=== PATIENT | male | born 1945 | race Caucasian/White ===

== ENCOUNTER 2018-05-26 16:48 | Emergency (ER) | payer OTHER ==
--- OUTSIDE RECORDS SUMMARY | 2018-05-26 16:50 | XMS REPORT ---
:1945 Author Organization eClinicalWorks Care Team Providers Name Role Phone Aragon, Alba Provider Role Unavailable Allergies, Adverse Reactions, Alerts Substance Reaction Event Type N.K.D.A. Info Not Available Non Drug Allergy Problems Problem Type Condition Code Onset Dates Condition Status Problem Sexual dysfunction R37 Active Problem Unspecified hearing loss H91.90 Active Problem Hypertension I10 Active Problem Benign hypertrophy of prostate N40.0 Active Assessment Allergic rhinitis, seasonal J30.2 Active Problem Allergic rhinitis, seasonal J30.2 Active Assessment Benign hypertrophy of prostate N40.0 Active Problem Chronic tension-type headache, not G44.229 Active intractable Problem BPH without urinary obstruction N40.0 Active Problem Degeneration of lumbosacral M51.37 Active intervertebral disc Problem Nicotine dependence F17.200 Active Problem Headache syndrome, complicated G44.59 Active Assessment Degeneration of lumbosacral M51.37 Active intervertebral disc Assessment Chronic tension-type headache, not G44.229 Active intractable Assessment Hypertension I10 Active Assessment DJD (degenerative joint disease) M19.90 Active Problem Depression with anxiety F41.8 Active Problem DJD (degenerative joint disease) M19.90 Active Problem Chronic back pain M54.9 Active Problem Peripheral neuropathy G62.9 Active Problem Constipation, unspecified K59.00 Active Problem Insomnia G47.00 Active Medications Medication Code Code Instructions Start End Status Dosage System Date Date Flonase [facility] 41874621917 50 MCG/ACT Active 1 spray in Nasally Once a each day nostril Carbamazepine ND 18953640800 200 MG Orally Active 1 tablet Twice a day Imitrex ND 21162580809 25 MG Orally December Active 1 tablet once a day and 2017 as needed may repeat one dose if no improvement within 2 hours ( max of 2 doses in 24 hours) Flomax ND 27874858782 0.4 MG Orally Active 1 capsule Once a day Lyrica ND 96275154091 75 MG Orally Active 1 capsule Twice a day 1 to 3 hours before bedtime in the evening Trazodone HCl [facility] 46237367888 50 MG Orally Inactive 1 tablet Once a day at bedtime as needed Lisinopril [facility] 47385496609 40 MG Orally Active 1 tablet Once a day Tizanidine HCl [facility] 78716355465 2 MG Active 1 TAB EVERY 12 HOURS PRN PAIN MUSCLE SPASM Remeron [facility] 02059614748 45 MG Orally Active 1 tablet Once a day at bedtime Zanaflex [facility] 85225221034 2 MG Orally Apr 24, Active 1 capsule twice times a 2018 as needed day Results No Known Results Summary Purpose eClinicalWorks Submission
--- OUTSIDE RECORDS SUMMARY | 2018-05-26 16:51 | XMS REPORT ---
:1945 Author Organization eClinicalWorks Care Team Providers Name Role Phone Aragon, Na Provider Role Unavailable Allergies No Known Allergies Problems Problem Type Condition Code Onset Dates Condition Status Problem Sexual dysfunction R37 Active Problem Unspecified hearing loss H91.90 Active Problem Hypertension I10 Active Problem Benign hypertrophy of prostate N40.0 Active Problem Allergic rhinitis, seasonal J30.2 Active Problem Chronic tension-type headache, not G44.229 Active intractable Problem BPH without urinary obstruction N40.0 Active Problem Degeneration of lumbosacral M51.37 Active intervertebral disc Problem Nicotine dependence F17.200 Active Problem Headache syndrome, complicated G44.59 Active Problem Depression with anxiety F41.8 Active Problem DJD (degenerative joint disease) M19.90 Active Problem Chronic back pain M54.9 Active Problem Peripheral neuropathy G62.9 Active Problem Constipation, unspecified K59.00 Active Problem Insomnia G47.00 Active Medications No Known Medications Results No Known Results Summary Purpose [employer] Submission
--- OUTSIDE RECORDS SUMMARY | 2018-05-26 16:51 | XMS REPORT ---
[...] Medications Results No Known Results Summary Purpose [employer] Submission
--- OUTSIDE RECORDS SUMMARY | 2018-05-26 16:51 | XMS REPORT ---
:1945 Author Organization eClinicalWorks Care Team Providers Name Role Phone Aragon, Na Provider Role Unavailable Allergies, Adverse Reactions, Alerts Substance Reaction Event Type N.K.D.A. Info Not Available Non Drug Allergy Problems Problem Type Condition Code Onset Dates Condition Status Problem DJD (degenerative joint disease) M19.90 Active Problem Degeneration of lumbosacral M51.37 Active intervertebral disc Problem Unspecified hearing loss H91.90 Active Problem Chronic tension-type headache, not G44.229 Active intractable Assessment Degeneration of lumbosacral M51.37 Active intervertebral disc Problem Benign hypertrophy of prostate N40.0 Active Assessment DJD (degenerative joint disease) M19.90 Active Assessment Benign hypertrophy of prostate N40.0 Active Problem Renal insufficiency N28.9 Active Problem Headache syndrome, complicated G44.59 Active Problem BPH without urinary obstruction N40.0 Active Problem Allergic rhinitis, seasonal J30.2 Active Problem Nicotine dependence F17.200 Active Problem Peripheral neuropathy G62.9 Active Assessment Hypertension I10 Active Assessment Chronic tension-type headache, not G44.229 Active intractable Problem Hypertension I10 Active Problem Chronic back pain M54.9 Active Assessment Allergic rhinitis, seasonal J30.2 Active Problem Insomnia G47.00 Active Problem Constipation, unspecified K59.00 Active Assessment Renal insufficiency N28.9 Active Problem Sexual dysfunction R37 Active Problem Depression with anxiety F41.8 Active Medications Medication Code Code Instructions Start End Status Dosage System Date Date Lyrica [facility] 52710615670 75 MG Orally Active 1 capsule Twice a day Carbamazepine ND 65860844741 200 MG Orally Active 1 tablet Twice a day Imitrex ND 46680281343 50 MG Orally April 02, Active 1 tablet Twice a day 2017 as needed Topamax ND 68547503611 25 MG Orally April 02, Active 1 tablet Twice a day 2017 once a day x 1 week, then increase to twice a day after 1 week. Trazodone HCl [facility] 71099105205 50 MG Orally Inactive 1 tablet Once a day at bedtime as needed Remeron [facility] 71273241964 45 MG Orally Active 1 tablet Once a day at bedtime Flomax [facility] 21077049877 0.4 MG Orally Active 1 capsule Once a day Tizanidine HCl [facility] 36680518684 2 MG Active 1 TAB EVERY 12 HOURS PRN PAIN MUSCLE SPASM Flonase [facility] 09366050410 50 MCG/ACT Active 1 spray in Nasally Once a each day nostril Imitrex [facility] 83465466072 25 MG Orally Inactive 1 tablet once a day and as needed may repeat one dose if no improvement within 2 hours ( max of 2 doses in 24 hours) Zanaflex [facility] 78645395064 2 MG Orally Jul 01, Active 1 capsule twice times a 2018 as needed day Lisinopril [facility] 93550105157 40 MG Orally Active 1 tablet Once a day Results No Known Results Summary Purpose eClinicalWorks Submission
--- OUTSIDE RECORDS SUMMARY | 2018-05-26 16:51 | XMS REPORT ---
[...] Medications Results No Known Results Summary Purpose [employer] Submission
--- OUTSIDE RECORDS SUMMARY | 2018-05-26 16:51 | XMS REPORT ---
[...] tension-type headache, not G44.229 Active intractable Problem Benign hypertrophy of prostate N40.0 Active Problem Renal insufficiency N28.9 Active Problem Headache syndrome, complicated G44.59 Active Problem BPH without urinary obstruction N40.0 Active Problem Allergic rhinitis, seasonal J30.2 Active Problem Nicotine dependence F17.200 Active Problem Peripheral neuropathy G62.9 Active Problem Hypertension I10 Active Problem Chronic back pain M54.9 Active Problem Insomnia G47.00 Active Problem Constipation, unspecified K59.00 Active Problem Sexual dysfunction R37 Active Problem Depression with anxiety F41.8 Active Medications No Known Medications Results No Known Results Summary Purpose eClinicalWorks Submission
[2018-05-26] MEDS ORDERED: NA CHLORIDE 0.9% 500 ML ONE (17:47)
[2018-05-26] MEDS ORDERED: KETOROLAC 30 MG/ML INJ ONE (17:47)
[2018-05-26 18:24] LABS: Absolute Lymphocytes (CBC) 1.8 K/uL (0.7-4.9); Absolute Monocytes 0.4 K/uL (0.1-1.3); Absolute Neutrophil 6.1 K/uL (1.8-8.0); Basophils % 0.9 % (0-1.3); Eosinophils % 1.9 % (0-4.4); Lymphocytes % 20.7 % (15.3-44.8); MCH 31.4 pg (27.0-35.0); MCV 89.9 fL (80-100); MPV 7.6 fL (7.6-11.3); Monocytes % 5.1 % (3.3-12.3); Protime INR 0.96; RBC Red Blood Cell Count 4.67 M/uL (4.33-5.43)
[2018-05-26 18:38] LABS: ALT/SGPT 15 U/L (12-78); AST/SGOT 14 U/L (15-37); Alkaline Phosphatase 71 U/L (45-117); BUN Blood Urea Nitrogen 18 mg/dL (7-18); Bicarbonate 22 mmol/L (21-32); Bilirubin Direct < 0.1 mg/dL (0-0.2); Bilirubin Total 0.3 mg/dL (0.2-1.0); CKMB Creatine Kinase MB 1.1 ng/mL (0.3-3.6); Creatine Phosphokinase 48 U/L (39-308); Glucose Level 142 mg/dL (74-106); Magnesium 2.2 mg/dL (1.8-2.4); Potassium 3.6 mmol/L (3.5-5.1); Protein, Total 7.5 g/dL (6.4-8.2); Sodium Level 138 mmol/L (136-145); Troponin (Emerg Dept Use Only) 0.04 ng/mL (0.0-0.045)
--- NOTE | 2018-05-26 18:50 | RAD REPORT ---
EXAM DESCRIPTION: RAD - Chest Single View - 05/26/2018 6:37 pm CLINICAL HISTORY: hypotension Chest pain. COMPARISON: Chest Pa And Lat (2 Views) dated 06/14/2017 FINDINGS: Portable technique limits examination quality. The lungs are grossly clear. Mild chronic elevation left hemidiaphragm noted. The heart is normal in size. No displaced fractures. IMPRESSION: No acute intrathoracic process suspected.
[2018-05-26] MEDS ORDERED: DIAZEPAM 10 MG/2 ML INJ SYRINGE ONE (19:19)
--- NOTE | 2018-05-26 19:54 | RAD REPORT ---
EXAM DESCRIPTION: CT - Soft Tissue Neck W/Contr CLINICAL HISTORY: PAIN COMPARISON: No comparisons TECHNIQUE All CT scans are performed using dose optimization technique as appropriate and may includ e automated exposure control or mA/KV adjustment according to patient size. FINDINGS: Mild asymmetric soft tissue is seen in the region of the left tongue base/ palatine tonsil relative to the right. Elsewhere, pharyngeal or laryngeal abnormality of concern. Thyroid gland appe ars normal. Vocal cords are symmetric. Salivary glands appear symmetric. No significant jugular chain adenopathy seen. The upper lung tello are emphysematous. Prominent lower cervical degenerative changes are seen. 3 mm degenerative anterolisthesis of C4 on 5 is present. No significant prevertebral soft tissue thickening. IMPRESSION: Prominent lower cervical degenerative changes are present. Asymmetric soft tissue thickening involving the left tongue base/ palatine tonsil. Nonemergent direct visualization may be of value for further workup if clinically indicated.
--- NOTE | 2018-05-26 20:32 | ER ---
Nurse's Notes [facility] Name: Frank Chung Age: 72 yrs Sex: Male : 1945 Arrival Date: 05/26/2018 Time: 16:50 Bed 6 Private MD: Alba Aragon Diagnosis: Neck Pain Presentation: 05/26 16:58 Presenting complaint: Patient states: He has been having spasms in his neck for the aj1 past week, the pain is worse when he moves his right arm. The pain has made it difficult for him to sleep at night. Denies injury. Reports 4 years ago he started having intermittent spasms in his neck, which he has seen a neurologist for. He was told he had bone spurs on his neck and was recommended to have surgery, but he has been unable to schedule it due to finances. Transition of care: patient was not received from another setting of care. Onset of symptoms was May 19, 2018. Risk Assessment: Do you want to hurt yourself or someone else? Patient reports no desire to harm self or others. Initial Sepsis Screen:. 16:58 Method Of Arrival: Ambulatory [facility] 17:02 Care prior to arrival: None. aj1 17:08 Initial Sepsis Screen: Does the patient meet any 2 criteria? HR > 90 bpm. Does the aj1 patient have a suspected source of infection? No. Patient's initial sepsis screen is negative. 17:08 Acuity: KEVIN 2 aj1 Triage Assessment: 17:05 General: Appears in no apparent distress. comfortable, Behavior is calm, cooperative, aj1 appropriate for age. Pain: Complains of pain in neck Pain currently is 10 out of 10 on a pain scale. Neuro: Level of Consciousness is awake, alert, obeys commands. Cardiovascular: Patient's skin is warm and dry. Respiratory: Airway is patent Respiratory effort is even, unlabored, Respiratory pattern is regular, symmetrical. Historical: - Allergies: 17:05 NKA; aj1 - Home Meds: 17:05 lisinopril 40 mg Oral tab 1 tab once daily [Active]; Lyrica Oral 1 cap 2 times per day aj1 [Active]; Tegretol 250 mg Oral tab every 8 hours [Active]; Remeron 45 mg Oral tab 1 tab once daily [Active]; tamsulosin 0.4 mg Oral cp24 1 cap once daily [Active]; - PMHx: 17:05 Depression; Hypertension; aj1 - Immunization history:: Flu vaccine is up to date. - Social history:: Smoking status: Patient uses tobacco products, smokes one-half pack cigarettes per day. - Ebola Screening: : Patient denies travel to an Ebola-affected area in the 21 days before illness onset. Screenin:11 Abuse screen: Denies threats or abuse. Denies injuries from another. Nutritional ph screening: No deficits noted. Tuberculosis screening: No symptoms or risk factors identified. Fall Risk None identified. Assessment: 17:40 General: Appears in no apparent distress. uncomfortable, slender, well groomed, ph Behavior is cooperative, appropriate for age, anxious, Denies fever, feeling ill, fatigue. Pain: Complains of pain in right posterior aspect of neck Pain radiates to right trapezius Quality of pain is described as crampy, sharp, stabbing, Pain began 2-3 days ago. Neuro: Level of Consciousness is awake, alert, obeys commands, Oriented to person, place, time, situation, Moves all extremities. Speech is normal, Denies weakness dizziness, paresthesias numbness. Cardiovascular: Denies chest pain, lightheadedness, nausea, shortness of breath, vomiting, Capillary refill < 3 seconds in bilateral fingers Patient's skin is warm and dry. Respiratory: Airway is patent Respiratory effort is even, unlabored. GI: No signs and/or symptoms were reported involving the gastrointestinal system. Patient currently denies diarrhea, nausea, vomiting. : No signs and/or symptoms were reported regarding the genitourinary system. Derm: Skin is intact, is healthy with good turgor, Skin is pink, warm \T\ dry. Musculoskeletal: Circulation, motion, and sensation intact. 18:40 Reassessment: Patient appears in no apparent distress at this time. Patient and/or ph family updated on plan of care and expected duration. Pain level reassessed. Patient is alert, oriented x 3, equal unlabored respirations, skin warm/dry/pink. Pt reports that pain has decreased to 7/10, denies nausea, awaiting lab and radiology results, VSS. 19:52 Reassessment: Pt returned from CT. tl2 20:58 Reassessment: unable to discharge pt because he does not have a ride home. tl2 21:41 Reassessment: SAMMIE Shell stated to reevaluate patient after an hour and if he is tl2 awake and alert, he could be discharged home and to drive himself. 21:57 Reassessment: Pt ambulatory to restroom. Evaluated by PA and cleared to drive home. tl2 Vital Signs: 17:05 BP 85 / 62; Pulse 98; Resp 18; Temp 97.1; Pulse Ox 96% on R/A; Weight 79.38 kg (R); aj1 Height 5 ft. 10 in. (177.80 cm); Pain 10/10; 17:30 BP 83 / 72; Pulse 92; Resp 18; Pulse Ox 96% on R/A; ph 18:12 BP 109 / 78; Pulse 86; Resp 16; Pulse Ox 98% on R/A; ph 18:41 BP 102 / 80; Pulse 81; Resp 18; Pulse Ox 97% on R/A; Pain 7/10; ph 19:52 BP 140 / 94; Pulse 92; Resp 18; Pulse Ox 99% on R/A; tl2 21:56 BP 122 / 92; Pulse 88; Resp 18; Pulse Ox 95% on R/A; tl2 17:05 Body Mass Index 25.11 (79.38 kg, 177.80 cm) aj1 ED Course: 10:00 Initial lab(s) drawn, by me, sent to lab. Inserted saline lock: 22 gauge in right ph forearm, using aseptic technique. Blood collected. 16:50 Patient arrived in ED. sb2 16:50 Alba Aragon MD is Private Physician. sb2 17:08 Triage completed. aj1 17:24 Jaylen Braun PA is PHCP. cp 17:24 Luis Diaz MD is Attending Physician. cp 18:03 Sandra Munson, KENNETH is Primary Nurse. ph 18:06 Patient has correct armband on for positive identification. Bed in low position. Call ph light in reach. Side rails up X 1. supervisor sawmill on. Pulse ox on. NIBP on. Warm blanket given. 18:11 Arm band placed on. ph 18:34 X-ray completed. Portable x-ray completed in exam room. Patient tolerated procedure kp1 well. 18:35 XRAY Chest (1 view) In Process Unspecified. EDMS 19:[address] via stretcher. cw1 19:33 CT completed. Patient moved back from CT. cw1 19:36 CT Soft Tissue Neck W/contr In Process Unspecified. EDMS 20:31 Alba Aragon MD is Referral Physician. cp 21:57 No provider procedures requiring assistance completed. IV discontinued, intact, tl2 bleeding controlled, No redness/swelling at site. Pressure dressing applied. Administered Medications: 17:33 CANCELLED (Physician Discretion): fentaNYL (PF) 25 mcg IVP once cp 18:04 Drug: NS 0.9% 500 ml Route: IV; Rate: bolus; Site: right forearm; ph 18:39 Follow up: Response: No adverse reaction; IV Status: Completed infusion ph 18:04 Drug: TORadol 30 mg Route: IVP; Site: right forearm; ph 18:39 Follow up: Response: No adverse reaction; Pain is decreased ph 19:58 Drug: Diazepam 2 mg Route: IVP; Infused Over: 3 mins; Site: right forearm; tl1 21:59 Follow up: Response: No adverse reaction; Marked relief of symptoms tl2 Outcome: 20:31 Discharge ordered by MD. cp 21:57 Discharged to home ambulatory. tl2 21:57 Condition: stable 21:57 Discharge instructions given to patient, Instructed on discharge instructions, follow up and referral plans. medication usage, Demonstrated understanding of instructions, follow-up care, medications, Prescriptions given X 2. 22:03 Patient left the ED. tl1 Signatures: Dispatcher [employer] EDMS Audrey John RN RN aj1 Woodley, Crystal cw1 Lexy Truong RN RN tl1 Sandra Munson RN RN ph Jaylen Braun PA PA Shyla Aceves RN RN tl2 Katerina Houser kp1 Farideh Cline sb2 Corrections: (The following items were deleted from the chart) 18:41 18:40 Reassessment: Patient appears in no apparent distress at this time. Patient ph and/or family updated on plan of care and expected duration. Pain level reassessed. Patient is alert, oriented x 3, equal unlabored respirations, skin warm/dry/pink. ph 22:03 21:57 Discharge instructions given to patient, Instructed on discharge instructions, tl1 follow up and referral plans. medication usage, Demonstrated understanding of instructions, follow-up care, medications, Prescriptions given X 1, tl2
--- NOTE | 2018-05-26 20:32 | EDPHYS ---
Physician Documentation [facility] Name: Frank Chung Age: 72 yrs Sex: Male : 1945 Arrival Date: 05/26/2018 Time: 16:50 Bed 6 Private MD: Alba Aragon ED Physician Luis Diaz HPI: 05/26 17:35 This 72 yrs old Male presents to ER via Ambulatory with complaints of Neck cp Pain, >24Hrs Old. 17:35 The patient or guardian complains of decreased range of motion, pain, spasm, stiffness. cp The symptoms are located on the right posterior aspect of lower neck. 17:35 Onset: The symptoms/episode began/occurred 4 year(s) ago, and became worse 1 week(s) cp ago. Context: The neck injury/problem resulted from from unknown cause. 17:35 Associated signs and symptoms: Pertinent negatives: chills, fever, headache, numbness, cp weakness. The pain does not radiate. Severity of symptoms: in the emergency department the symptoms are unchanged, despite home interventions. Historical: - Allergies: 17:05 NKA; aj1 - Home Meds: 17:05 lisinopril 40 mg Oral tab 1 tab once daily [Active]; Lyrica Oral 1 cap 2 times per day aj1 [Active]; Tegretol 250 mg Oral tab every 8 hours [Active]; Remeron 45 mg Oral tab 1 tab once daily [Active]; tamsulosin 0.4 mg Oral cp24 1 cap once daily [Active]; - PMHx: 17:05 Depression; Hypertension; aj1 - Immunization history:: Flu vaccine is up to date. - Social history:: Smoking status: Patient uses tobacco products, smokes one-half pack cigarettes per day. - Ebola Screening: : Patient denies travel to an Ebola-affected area in the 21 days before illness onset. ROS: 17:40 Constitutional: Negative for body aches, chills, fever, poor PO intake. cp 17:40 Eyes: Negative for injury, pain, redness, and discharge. cp 17:40 ENT: Negative for drainage from ear(s), ear pain, sore throat, difficulty swallowing, difficulty handling secretions. 17:40 Neck: Positive for pain with movement, pain at rest, stiffness, tenderness. 17:40 Cardiovascular: Negative for chest pain, edema, palpitations. 17:40 Respiratory: Negative for cough, shortness of breath, wheezing. 17:40 Abdomen/GI: Negative for abdominal pain, diarrhea, constipation, black/tarry stool, rectal bleeding. 17:40 Back: Negative for radiated pain. 17:40 : Negative for urinary symptoms, flank pain. 17:40 MS/extremity: Negative for injury or acute deformity, decreased range of motion, paresthesias. 17:40 Skin: Negative for cellulitis, rash. 17:40 Neuro: Negative for altered mental status, dizziness, headache, speech changes, weakness. 17:40 All other systems are negative. Exam: 17:45 Constitutional: The patient appears in no acute distress, alert, awake, cp non-diaphoretic, non-toxic, well developed, well nourished, uncomfortable. 17:45 Head/Face: Normocephalic, atraumatic. cp 17:45 Eyes: Periorbital structures: appear normal, Pupils: equal, round, and reactive to light and accomodation, Extraocular movements: intact throughout, Conjunctiva: normal, no exudate, no injection, Sclera: no appreciated abnormality, Lids and lashes: appear normal, bilaterally. 17:45 ENT: External ear(s): are unremarkable, Ear canal(s): are normal, clear, TM's: dullness, bilaterally, Nose: is normal, Mouth: Lips: moist, Oral mucosa: moist, Posterior pharynx: is normal, airway is patent, no erythema, no exudate, Voice: is normal. 17:45 Neck: External neck: is normal, C-spine: vertebral tenderness, that is mild, crepitus, is not appreciated, Trachea: is midline with no obvious abnormalities, ROM/movement: pain, that is moderate, with rotation to the left, with rotation to the right, Meningeal signs: are not present. 17:45 Chest/axilla: Inspection: normal, Palpation: is normal, no crepitus, no tenderness. 17:45 Cardiovascular: Rate: normal, Rhythm: regular, Pulses: Pulses are 2+ in right radial artery and left radial artery. Edema: is not appreciated, JVD: is not appreciated. 17:45 Respiratory: the patient does not display signs of respiratory distress, Respirations: normal, no retractions, no splinting, no tachypnea, labored breathing, is not present, Breath sounds: are clear throughout, no decreased breath sounds, no stridor, no wheezing. 17:45 Abdomen/GI: Inspection: abdomen appears normal, Bowel sounds: active, all quadrants, Palpation: abdomen is soft and non-tender, in all quadrants, rebound tenderness, is not appreciated, voluntary guarding, is not appreciated, involuntary guarding, is not appreciated. 17:45 Back: pain, that is moderate, of the posterior cervical area, left trapezius and right trapezius, ROM is painful, with rotation to the right, with rotation to the left. 17:45 Skin: cellulitis, is not appreciated, no rash present. 17:45 Neuro: Orientation: to person, place \T\ time. Mentation: lucid, able to follow commands, Cerebellar function: is grossly normal, Motor: moves all fours, strength is normal, Sensation: no obvious gross deficits. 18:55 ECG was reviewed by the Attending Physician. cp Vital Signs: 17:05 BP 85 / 62; Pulse 98; Resp 18; Temp 97.1; Pulse Ox 96% on R/A; Weight 79.38 kg (R); aj1 Height 5 ft. 10 in. (177.80 cm); Pain 10/10; 17:30 BP 83 / 72; Pulse 92; Resp 18; Pulse Ox 96% on R/A; ph 18:12 BP 109 / 78; Pulse 86; Resp 16; Pulse Ox 98% on R/A; ph 18:41 BP 102 / 80; Pulse 81; Resp 18; Pulse Ox 97% on R/A; Pain 7/10; ph 19:52 BP 140 / 94; Pulse 92; Resp 18; Pulse Ox 99% on R/A; tl2 21:56 BP 122 / 92; Pulse 88; Resp 18; Pulse Ox 95% on R/A; tl2 17:05 Body Mass Index 25.11 (79.38 kg, 177.80 cm) aj1 MDM: 17:25 Patient medically screened. cp 18:00 Differential diagnosis: C-Spine Fracture Cervical Disc Herniation Cervical Discogenic cp Pain Cervical Raiculopathy Cervical Spondylosis fracture, Spinal Cord Compression Spondylosis subluxation, Thoracic Outlet Syndrome torticollis. 20:30 ED course: Patient denies difficulty swallowing foods or liquids. Pain and stiffness cp improved. 20:30 Data reviewed: vital signs, nurses notes, lab test result(s), EKG, radiologic studies, cp CT scan, plain films. 20:30 Test interpretation: by ED physician or midlevel provider: ECG, plain radiologic cp studies. Counseling: I had a detailed discussion with the patient and/or guardian regarding: the historical points, exam findings, and any diagnostic results supporting the discharge/admit diagnosis, lab results, radiology results, the need for outpatient follow up, a family practitioner, to return to the emergency department if symptoms worsen or persist or if there are any questions or concerns that arise at home. Response to treatment: the patient's symptoms have markedly improved after treatment, VSS. Pain improved, and as a result, I will discharge patient. 05/26 17:33 Order name: Basic Metabolic Panel; Complete Time: 18:52 cp 05/26 18:52 Interpretation: Normal except: GLUC 142; CRE 1.40; GFR 50. cp 05/26 17:33 Order name: CBC with Diff; Complete Time: 18:52 cp 05/26 17:33 Order name: Ckmb; Complete Time: 18:52 cp 05/26 17:33 Order name: CPK; Complete Time: 18:52 cp 05/26 17:33 Order name: LFT's; Complete Time: 18:52 cp 05/26 17:33 Order name: Magnesium; Complete Time: 18:52 cp 05/26 17:33 Order name: PT-INR; Complete Time: 18:52 cp 05/26 17:33 Order name: Ptt, Activated; Complete Time: 18:52 cp 05/26 17:33 Order name: Troponin (emerg Dept Use Only); Complete Time: 18:52 cp 05/26 18:22 Order name: CT Soft Tissue Neck W/contr; Complete Time: 20:19 cp 05/26 18:22 Order name: XRAY Chest (1 view); Complete Time: 18:52 cp 05/26 17:33 Order name: EKG; Complete Time: 17:34 cp 05/26 17:33 Order name: Cardiac monitoring; Complete Time: 18:05 cp 05/26 17:33 Order name: EKG - Nurse/Tech; Complete Time: 18:49 cp 05/26 17:33 Order name: IV Saline Lock; Complete Time: 18:05 cp 05/26 17:33 Order name: Labs collected and sent; Complete Time: 18:05 cp 0908 17:33 Order name: O2 Per Protocol; Complete Time: 18:05 cp 08 17:33 Order name: O2 Sat Monitoring; Complete Time: 18:05 cp 08 20:22 Order name: PO challenge; Complete Time: 21:55 cp EC:55 Rate is 80 beats/min. Rhythm is regular. TN interval is normal. QRS interval is normal. cp QT interval is normal. Interpreted by me. Reviewed by me. Administered Medications: 17:33 CANCELLED (Physician Discretion): fentaNYL (PF) 25 mcg IVP once cp 18:04 Drug: NS 0.9% 500 ml Route: IV; Rate: bolus; Site: right forearm; ph 18:39 Follow up: Response: No adverse reaction; IV Status: Completed infusion ph 18:04 Drug: TORadol 30 mg Route: IVP; Site: right forearm; ph 18:39 Follow up: Response: No adverse reaction; Pain is decreased ph 19:58 Drug: Diazepam 2 mg Route: IVP; Infused Over: 3 mins; Site: right forearm; tl1 21:59 Follow up: Response: No adverse reaction; Marked relief of symptoms tl2 Disposition: 05/27 10:03 Co-signature as Attending Physician, Luis Diaz MD. rn Disposition: 05/26/18 20:31 Discharged to Home. Impression: Neck Pain. - Condition is Stable. - Discharge Instructions: Musculoskeletal Pain, Neck Exercises. - Prescriptions for Baclofen 10 mg Oral Tablet - take 1 tablet by ORAL route 3 times per day no driving while taking medication; 20 tablet. Tramadol 50 mg Oral Tablet - take 1 tablet by ORAL route every 8 hours as needed. no driving while taking medication; 20 tablet. - Medication Reconciliation Form, Thank You Letter, Antibiotic Education, Prescription Opioid Use form. - Follow up: Alba Aragon MD; When: 2 - 3 days; Reason: Recheck today's complaints. - Problem is new. - Symptoms have improved. Signatures: Dispatcher [employer] EDAudrey Suarez RN RN aj1 Luis Diaz MD MD rn Lasagna, Tonya, RN RN tl1 Sandra Munson RN RN ph Jaylen Braun PA PA Shyla Aceves RN tl2 Corrections: (The following items were deleted from the chart) 05/26 17:33 17:33 fentaNYL (PF) 25 mcg IVP once ordered. cp cp 22:00 17:33 Urine Dipstick-Ancillary ordered. cp tl2 22:03 20:31 05/26/2018 20:31 Discharged to Home. Impression: Neck Pain. Condition is Stable. tl1 Forms are Medication Reconciliation Form, Thank You Letter, Antibiotic Education, Prescription Opioid Use. Follow up: Alba Aragon; When: 2 - 3 days; Reason: Recheck today's complaints. Problem is new. Symptoms have improved. cp
[2018-05-26 22:11] VITALS: TEMP 97.1
[2018-05-26 22:17] VITALS: BP 122/92; O2SAT 95
--- NOTE | 2018-05-27 08:53 | EKG ---
Test Date: 2018-05-26 Test Time: 18:48:33 Maintenance Repairman: CARMENCITA MEASUREMENT RESULTS: Intervals: Rate: 80 NE: 152 QRSD: 90 QT: 356 QTc: 410 [place]: P: 43 NE: 152 QRS: 65 T: 43 INTERPRETIVE STATEMENTS: Normal sinus rhythm Possible Left atrial enlargement Borderline ECG No previous ECG available for comparison Electronically Signed On 05-27-18 08:52:33 CDT by Alfa Mcmahon
== END 2018-05-26 22:03 | disposition home or self-care (01) ==
LOC: ER 16:48
DX: M54.2 Cervicalgia (principal); I10 Essential (primary) hypertension; F32.9 Major depressive disorder, single episode, unspecified; F17.210 Nicotine dependence, cigarettes, uncomplicated
CPT/HCPCS: 36415; 70491; 71045; 80048; 80076; 82550; 82553; 83735; 84484; 85025; 85610; 85730; 93005; 96361; 96374; 96375; 99285; J3360; Q9967

== ENCOUNTER 2019-03-29 14:47 | Emergency (ER) | payer OTHER ==
--- OUTSIDE RECORDS SUMMARY | 2019-03-29 14:53 | XMS REPORT ---
[...] Medications Results No Known Results Summary Purpose [employer] Submission
--- OUTSIDE RECORDS SUMMARY | 2019-03-29 14:53 | XMS REPORT ---
[...] Medications Results No Known Results Summary Purpose [employer] Submission
--- OUTSIDE RECORDS SUMMARY | 2019-03-29 14:53 | XMS REPORT ---
[...] Medications Results No Known Results Summary Purpose [employer] Submission
--- OUTSIDE RECORDS SUMMARY | 2019-03-29 14:54 | XMS REPORT ---
:1945 Author Organization eClinicalWorks Care Team Providers Name Role Phone Aragon, Na Provider Role Unavailable Allergies, Adverse Reactions, Alerts Substance Reaction Event Type N.K.D.A. 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 Problem DJD (degenerative joint disease) M19.90 Active Assessment DJD (degenerative joint disease) M19.90 Active Problem Unspecified hearing loss H91.90 Active Problem BPH without urinary obstruction N40.0 Active Problem Degeneration of lumbosacral M51.37 Active intervertebral disc Problem Cigarette nicotine dependence F17.210 Active without complication Problem Renal insufficiency N28.9 Active Assessment Chronic tension-type headache, not G44.229 Active intractable Assessment Hypertension I10 Active Problem Chronic obstructive pulmonary J44.9 Active disease, unspecified COPD type Assessment Degeneration of lumbosacral M51.37 Active intervertebral disc Problem Nicotine dependence F17.200 Active Problem Allergic rhinitis, seasonal J30.2 Active Problem Benign hypertrophy of prostate N40.0 Active Problem Chronic tension-type headache, not G44.229 Active intractable Problem Peripheral neuropathy G62.9 Active Problem Insomnia G47.00 Active Problem Headache syndrome, complicated G44.59 Active Problem Chronic back pain M54.9 Active Problem Constipation, unspecified K59.00 Active Problem Sexual dysfunction R37 Active Problem Hypertension I10 Active Medications Medication Code Code Instructions Start End Status Dosage System Date Date Tizanidine HCl [facility] 62448668923 2 Active 1 tab every 12 hours prn pain muscle spasm Lyrica ND 05348283118 75 MG Orally Active 1 capsule Twice a day Flonase [facility] 85829935077 50 MCG/ACT Active 1 spray in Nasally Once a each day nostril Carbamazepine ND 99529712440 200 MG Orally Active 1 tablet Twice a day Ventolin HFA [facility] 74285981711 108 (90 Base) December Active 2 puffs as MCG/ACT 2018 needed Inhalation every 6 hrs Topamax [facility] 71057203013 50 MG Orally Active 1 tablet Twice a day once a day x 1 week, then increase to twice a day after 1 week. Lisinopril [facility] 38820712223 40 MG Orally Active 1 tablet Once a day Flomax [facility] 25388264746 0.4 MG Orally Active 1 capsule Once a day Remeron [facility] 13744504559 45 MG Orally Active 1 tablet at Once a day bedtime Imitrex [facility] 01682584251 50 MG Orally Active 1 tablet as Twice a day needed Results No Known Results Summary Purpose eClinicalWorks Submission
--- OUTSIDE RECORDS SUMMARY | 2019-03-29 14:54 | XMS REPORT ---
[...] End Status Dosage System Date Date Lyrica [facility] 79005903738 75 MG Orally Active 1 capsule Twice a day Carbamazepine ND 57130307532 200 MG Orally Active 1 tablet Twice a day Imitrex ND 76763317712 50 MG Orally April 02, Active 1 tablet Twice a day 2017 as needed Topamax ND 59182117919 25 MG Orally April 02, Active 1 tablet Twice a day 2017 once a day x 1 week, then increase to twice a day after 1 week. Trazodone HCl [facility] 16304291761 50 MG Orally Inactive 1 tablet Once a day at bedtime as needed Remeron [facility] 85618131274 45 MG Orally Active 1 tablet Once a day at bedtime Flomax [facility] 06201973292 0.4 MG Orally Active 1 capsule Once a day Tizanidine HCl [facility] 92979232139 2 MG Active 1 TAB EVERY 12 HOURS PRN PAIN MUSCLE SPASM Flonase [facility] 83381073501 50 MCG/ACT Active 1 spray in Nasally Once a each day nostril Imitrex [facility] 06970817003 25 MG Orally Inactive 1 tablet once a day and as needed may repeat one dose if no improvement within 2 hours ( max of 2 doses in 24 hours) Zanaflex [facility] 56201735292 2 MG Orally Jul 01, Active 1 capsule twice times a 2018 as needed day Lisinopril [facility] 34739622784 40 MG Orally Active 1 tablet Once a day Results No Known Results Summary Purpose eClinicalWorks Submission
--- OUTSIDE RECORDS SUMMARY | 2019-03-29 14:54 | XMS REPORT ---
:1945 Author Organization eClinicalWorks Care Team Providers Name Role Phone Aragon, Na Provider Role Unavailable Allergies, Adverse Reactions, Alerts Substance Reaction Event Type N.K.D.A. Info Not Available Non Drug Allergy Problems Problem Type Condition Code Onset Dates Condition Status Assessment Cigarette nicotine dependence F17.210 Active without complication Assessment Encounter for tobacco use cessation Z71.6 Active counseling Assessment Renal insufficiency N28.9 Active Problem Depression with anxiety F41.8 Active Assessment Allergic rhinitis, seasonal J30.2 Active Problem DJD (degenerative joint disease) M19.90 Active Assessment Benign hypertrophy of prostate N40.0 Active Problem Unspecified hearing loss H91.90 Active Problem BPH without urinary obstruction N40.0 Active Problem Degeneration of lumbosacral M51.37 Active intervertebral disc Problem Renal insufficiency N28.9 Active Problem Benign hypertrophy of prostate N40.0 Active Assessment Hypertension I10 Active Assessment Degeneration of lumbosacral M51.37 Active intervertebral disc Problem Cigarette nicotine dependence F17.210 Active without complication Assessment DJD (degenerative joint disease) M19.90 Active Problem Headache syndrome, complicated G44.59 Active Problem Allergic rhinitis, seasonal J30.2 Active Problem Chronic tension-type headache, not G44.229 Active intractable Problem Nicotine dependence F17.200 Active Problem Peripheral neuropathy G62.9 Active Problem Insomnia G47.00 Active Assessment Chronic tension-type headache, not G44.229 Active intractable Problem Chronic back pain M54.9 Active Problem Constipation, unspecified K59.00 Active Problem Sexual dysfunction R37 Active Problem Hypertension I10 Active Medications Medication Code Code Instructions Start End Status Dosage System Date Date Carbamazepine ND 31646869177 200 MG Orally Active 1 tablet Twice a day Tizanidine HCl ND 67597642708 2 MG Oct 01, Active 1 tab every 2019 12 hours prn pain muscle spasm Flonase ND 40473576680 50 MCG/ACT Active 1 spray in Nasally Once a each day nostril Remeron ND 32136276029 45 MG Orally Active 1 tablet at Once a day bedtime Flomax [facility] 80107950149 0.4 MG Orally Active 1 capsule Once a day Lyrica [facility] 47294729033 75 MG Orally Active 1 capsule Twice a day Lisinopril [facility] 37400862177 40 MG Orally Active 1 tablet Once a day Topamax [facility] 42800168417 25 MG Orally Active 1 tablet Twice a day once a day x 1 week, then increase to twice a day after 1 week. Imitrex [facility] 26480486251 50 MG Orally Active 1 tablet as Twice a day needed Results No Known Results Immunizations Vaccine Administration Date FLUZONE HIGH DOSE OVER 65 Jul 03, 2018 Shingrix Jul 03, 2018 Summary Purpose eClinicalWorks Submission
--- OUTSIDE RECORDS SUMMARY | 2019-03-29 14:54 | XMS REPORT ---
:1945 Author Organization eClinicalWorks Care Team Providers Name Role Phone Aragon, Na Provider Role Unavailable Allergies No Known Allergies Problems Problem Type Condition Code Onset Dates Condition Status Problem Unspecified hearing loss H91.90 Active Problem BPH without urinary obstruction N40.0 Active Problem Degeneration of lumbosacral M51.37 Active intervertebral disc Problem Renal insufficiency N28.9 Active Problem Benign hypertrophy of prostate N40.0 Active Problem Cigarette nicotine dependence F17.210 Active without complication Problem Headache syndrome, complicated G44.59 Active Problem Allergic rhinitis, seasonal J30.2 Active Problem Chronic tension-type headache, not G44.229 Active intractable Problem Nicotine dependence F17.200 Active Problem Peripheral neuropathy G62.9 Active Problem Insomnia G47.00 Active Problem Chronic back pain M54.9 Active Problem Constipation, unspecified K59.00 Active Problem Sexual dysfunction R37 Active Problem Depression with anxiety F41.8 Active Problem Hypertension I10 Active Problem DJD (degenerative joint disease) M19.90 Active Medications No Known Medications Results No Known Results Summary Purpose eClinicalWorks Submission
--- OUTSIDE RECORDS SUMMARY | 2019-03-29 14:54 | XMS REPORT ---
:1945 Author Organization eClinicalWorks Care Team Providers Name Role Phone Aragon, Na Provider Role Unavailable Allergies, Adverse Reactions, Alerts Substance Reaction Event Type N.K.D.A. Info Not Available Non Drug Allergy Problems Problem Type Condition Code Onset Dates Condition Status Assessment Screening for prostate cancer Z12.5 Active Assessment Cigarette nicotine dependence F17.210 Active without complication Assessment Encounter for tobacco use cessation Z71.6 Active counseling Assessment Renal insufficiency N28.9 Active Assessment Unintentional weight loss R63.4 Active Problem Depression with anxiety F41.8 Active [...] Start End Status Dosage System Date Date Topamax [facility] 34587904263 50 MG Orally Active 1 tablet Twice a day once a day x 1 week, then increase to twice a day after 1 week. Lisinopril [facility] 72266644475 40 MG Orally Active 1 tablet Once a day Carbamazepine [facility] 83966736376 200 MG Orally Active 1 tablet Twice a day Remeron [facility] 85725577937 45 MG Orally Active 1 tablet at Once a day bedtime Flonase [facility] 14937569663 50 MCG/ACT Active 1 spray in Nasally Once a each day nostril Flomax [facility] 85542142994 0.4 MG Orally Active 1 capsule Once a day Imitrex [facility] 66541797502 50 MG Orally Active 1 tablet as Twice a day needed Lyrica [facility] 61097872813 75 MG Orally Active 1 capsule Twice a day Results No Known Results Summary Purpose eClinicalWorks Submission
[2019-03-29] MEDS ORDERED: Mastisol Adhesive Liq ONE (15:44)
--- NOTE | 2019-03-29 15:59 | ER ---
Nurse's Notes [facility] Name: Frank Chung Age: 73 yrs Sex: Male : 1945 Arrival Date: 03/29/2019 Time: 14:49 Bed Waiting Private MD: Diagnosis: Presentation: 03/29 14:55 Presenting complaint: Patient states: I have been having really bad hip pain for the la1 last year that is getting much worse the past week or so. I cant get any sleep. Pt denies any injury. Transition of care: patient was not received from another setting of care. Onset of symptoms was March 29, 2019. Risk Assessment: Do you want to hurt yourself or someone else? Patient reports no desire to harm self or others. Initial Sepsis Screen: Does the patient meet any 2 criteria? No. Patient's initial sepsis screen is negative. Does the patient have a suspected source of infection? No. Patient's initial sepsis screen is negative. Care prior to arrival: None. 14:55 Method Of Arrival: Wheelchair la1 14:55 Acuity: KEVIN 3 la1 Historical: - Allergies: 14:54 NKA; la1 - PMHx: 14:54 Depression; Hypertension; la1 - Immunization history:: Adult Immunizations up to date. - Social history:: Smoking status: Patient uses tobacco products, smokes one-half pack cigarettes per day. - Ebola Screening: : No symptoms or risks identified at this time. Vital Signs: 14:54 BP 80 / 56; Pulse 80; Resp 16; Temp 97.7; Pulse Ox 96% on R/A; Weight 74.39 kg; Height la1 5 ft. 11 in. (180.34 cm); 14:54 Body Mass Index 22.87 (74.39 kg, 180.34 cm) la1 ED Course: 14:49 Patient arrived in ED. ag5 14:54 Arm band placed on left wrist. la1 14:56 Triage completed. la1 Administered Medications: No medications were administered Outcome: 15:58 Patient left the ED. la1 Signatures: Clif Sheridan RN RN la1 Chemo Cheek ag5
[2019-03-29 16:06] VITALS: BP 80/56; TEMP 97.7; O2SAT 96
== END 2019-03-29 15:58 | disposition left against medical advice (07) ==
LOC: ER 14:47
DX: Z02.9 Encounter for administrative examinations, unspecified (principal)
CPT/HCPCS: 99281

== ENCOUNTER 2019-05-07 02:39 | Emergency (ER) | payer OTHER ==
--- OUTSIDE RECORDS SUMMARY | 2019-05-07 02:42 | XMS REPORT ---
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 Active Problem Depression with anxiety F41.8 Active Assessment DJD (degenerative joint disease) M19.90 Active Problem DJD (degenerative joint disease) M19.90 Active Assessment Degeneration of lumbosacral M51.37 Active intervertebral disc Problem Unspecified hearing loss H91.90 Active Problem BPH without urinary obstruction N40.0 Active Problem Degeneration of lumbosacral M51.37 Active intervertebral disc Problem Cigarette nicotine dependence F17.210 Active without complication Problem Renal insufficiency N28.9 Active Assessment Chronic tension-type headache, not G44.229 Active intractable Assessment Medicare annual wellness visit, Z00.00 Active subsequent Problem Chronic obstructive pulmonary J44.9 Active disease, unspecified COPD type Assessment Hypertension I10 Active Problem Nicotine dependence F17.200 Active Problem Allergic [...] Start End Status Dosage System Date Date Imitrex [facility] 75483088362 50 MG Orally Active 1 tablet as Twice a day needed Carbamazepine [facility] 62428374261 200 MG Orally Active 1 tablet Twice a day Topamax [facility] 59916953380 50 Orally Twice Active 1 tablet a day once a day x 1 week, then increase to twice a day after 1 week. Topamax [facility] 75048698373 100 MG Orally Active 1 tablet Twice a day once a day x 1 week, then increase to twice a day after 1 week. Lisinopril [facility] 33139149454 40 MG Orally Active 1 tablet Once a day Tizanidine HCl [facility] 06667242815 2 Active 1 tab every 12 hours prn pain muscle spasm Levaquin [facility] 53922682799 500 MG Orally April 10March Active 1 tablet Once a day 2018 Flomax [facility] 34661398107 0.4 MG Orally Active 1 capsule Once a day Remeron [facility] 89638657390 45 MG Orally Active 1 tablet at Once a day bedtime Lyrica [facility] 63863709084 75 MG Orally Active 1 capsule Twice a day Flonase [facility] 45952133204 50 MCG/ACT Active 1 spray in Nasally Once a each day nostril Ventolin HFA [facility] 19683665270 108 (90 Base) December Active 2 puffs as MCG/ACT 2018 needed Inhalation every 6 hrs Results No Known Results Summary Purpose eClinicalWorks Submission
--- OUTSIDE RECORDS SUMMARY | 2019-05-07 02:42 | XMS REPORT ---
[...] End Status Dosage System Date Date Topamax [facility] 92784025211 50 MG Orally Active 1 tablet Twice a day once a day x 1 week, then increase to twice a day after 1 week. Lisinopril [facility] 04034519376 40 MG Orally Active 1 tablet Once a day Carbamazepine [facility] 14434674550 200 MG Orally Active 1 tablet Twice a day Remeron [facility] 14356993862 45 MG Orally Active 1 tablet at Once a day bedtime Flonase [facility] 32227181048 50 MCG/ACT Active 1 spray in Nasally Once a each day nostril Flomax [facility] 35655677244 0.4 MG Orally Active 1 capsule Once a day Imitrex [facility] 09547013914 50 MG Orally Active 1 tablet as Twice a day needed Lyrica [facility] 22112190073 75 MG Orally Active 1 capsule Twice a day Results No Known Results Summary Purpose eClinicalWorks Submission
--- OUTSIDE RECORDS SUMMARY | 2019-05-07 02:42 | XMS REPORT ---
[...] Status Dosage System Date Date Carbamazepine ND 48555898828 200 MG Orally Active 1 tablet Twice a day Tizanidine HCl ND 96088722232 2 MG Oct 01, Active 1 tab every 2019 12 hours prn pain muscle spasm Flonase ND 41179978619 50 MCG/ACT Active 1 spray in Nasally Once a each day nostril Remeron ND 79267144809 45 MG Orally Active 1 tablet at Once a day bedtime Flomax [facility] 69551661830 0.4 MG Orally Active 1 capsule Once a day Lyrica [facility] 71582771541 75 MG Orally Active 1 capsule Twice a day Lisinopril [facility] 30643880244 40 MG Orally Active 1 tablet Once a day Topamax [facility] 97413156727 25 MG Orally Active 1 tablet Twice a day once a day x 1 week, then increase to twice a day after 1 week. Imitrex [facility] 03147261571 50 MG Orally Active 1 tablet as Twice a day needed Results No Known Results Immunizations Vaccine Administration Date FLUZONE HIGH DOSE OVER 65 Jul 03, 2018 Shingrix Jul 03, 2018 Summary Purpose eClinicalWorks Submission
--- OUTSIDE RECORDS SUMMARY | 2019-05-07 02:42 | XMS REPORT ---
[...] Status Dosage System Date Date Tizanidine HCl [facility] 14675116681 2 Active 1 tab every 12 hours prn pain muscle spasm Lyrica ND 76733165687 75 MG Orally Active 1 capsule Twice a day Flonase [facility] 09981991727 50 MCG/ACT Active 1 spray in Nasally Once a each day nostril Carbamazepine ND 10032782103 200 MG Orally Active 1 tablet Twice a day Ventolin HFA [facility] 40453752704 108 (90 Base) December Active 2 puffs as MCG/ACT 2018 needed Inhalation every 6 hrs Topamax [facility] 07850782256 50 MG Orally Active 1 tablet Twice a day once a day x 1 week, then increase to twice a day after 1 week. Lisinopril [facility] 48289799028 40 MG Orally Active 1 tablet Once a day Flomax [facility] 03370525709 0.4 MG Orally Active 1 capsule Once a day Remeron [facility] 74335751894 45 MG Orally Active 1 tablet at Once a day bedtime Imitrex [facility] 42352341078 50 MG Orally Active 1 tablet as Twice a day needed Results No Known Results Summary Purpose eClinicalWorks Submission
--- OUTSIDE RECORDS SUMMARY | 2019-05-07 02:42 | XMS REPORT ---
[...] nicotine dependence F17.210 Active without complication Assessment Dysuria R30.0 Active Problem Renal insufficiency N28.9 Active Assessment Benign hypertrophy of prostate N40.0 Active Assessment History of hematuria Z87.448 Active Problem Chronic obstructive pulmonary J44.9 Active disease, unspecified COPD type Problem Nicotine dependence F17.200 Active Problem Allergic rhinitis, seasonal J30.2 Active Problem Benign hypertrophy of prostate N40.0 Active Problem Chronic tension-type headache, not G44.229 Active intractable Problem Peripheral neuropathy G62.9 Active Problem Insomnia G47.00 Active Problem Headache syndrome, complicated G44.59 Active Problem Chronic back pain M54.9 Active Problem Constipation, unspecified K59.00 Active Assessment History of UTI Z87.440 Active Problem Sexual dysfunction R37 Active Problem Depression with anxiety F41.8 Active Assessment Primary insomnia F51.01 Active Problem Hypertension I10 Active Problem DJD (degenerative joint disease) M19.90 Active Medications Medication Code Code Instructions Start End Status Dosage System Date Date Remeron ND 01529116705 45 MG Orally Active 1 tablet at Once a day bedtime Carbamazepine ND 14959668461 200 MG Orally Active 1 tablet Twice a day Topamax ND 61551812769 50 Orally Twice Active 1 tablet a day once a day x 1 week, then increase to twice a day after 1 week. Lisinopril ND 64225244995 40 MG Orally Active 1 tablet Once a day Tizanidine HCl ND 21058587968 2 Active 1 tab every 12 hours prn pain muscle spasm Flomax ND 21464878035 0.4 MG Orally Active 1 capsule Once a day Ventolin HFA [facility] 10069193263 108 (90 Base) Active 2 puffs as MCG/ACT needed Inhalation every 6 hrs Lyrica [facility] 81351420983 75 MG Orally Active 1 capsule Twice a day Topamax [facility] 84849679383 100 MG Orally Active 1 tablet Twice a day once a day x 1 week, then increase to twice a day after 1 week. Imitrex [facility] 12651658951 50 MG Orally Active 1 tablet as Twice a day needed Levaquin [facility] 98822613949 500 MG Orally April 10March Active 1 tablet Once a day [address] [facility] 80796792941 50 MCG/ACT Active 1 spray in Nasally Once a each day nostril Results No Known Results Summary Purpose eClinicalWorks Submission
[2019-05-07] MEDS ORDERED: NA CHLORIDE 0.9% 1,000 ML ONE (03:39)
[2019-05-07 04:19] LABS: Absolute Lymphocytes (CBC) 2.1 K/uL (0.7-4.9); Basophils % 0.9 % (0-1.3); Lymphocytes % 30.3 % (15.3-44.8); MPV 7.6 fL (7.6-11.3); RBC Red Blood Cell Count 4.86 M/uL (4.33-5.43)
[2019-05-07 04:29] LABS: Protime INR 0.94
--- NOTE | 2019-05-07 05:12 | ER ---
Nurse's Notes [facility] Name: Frank Chung Age: 73 yrs Sex: Male : 1945 Arrival Date: 05/07/2019 Time: 02:41 Bed 7 Private MD: Diagnosis: Weakness;Tobacco abuse counseling;Tobacco use;Essential (primary) hypertension Presentation: 05/07 03:29 Presenting complaint: Patient states: Reports he has been feeling weak for the past two ea weeks, has a cough, lower abdominal pain, decreased appetite, groin pain and states "I feel like passing out when I try to stand, also my kidneys are not filtering properly". Transition of care: patient was not received from another setting of care. Onset of symptoms was May 07, 2019. Risk Assessment: Do you want to hurt yourself or someone else? Patient reports no desire to harm self or others. Initial Sepsis Screen: Does the patient meet any 2 criteria? No. Patient's initial sepsis screen is negative. Does the patient have a suspected source of infection? No. Patient's initial sepsis screen is negative. Care prior to arrival: None. 03:29 Method Of Arrival: Wheelchair ea 03:29 Acuity: KEVIN 3 ea Triage Assessment: 03:36 General: Appears in no apparent distress. Behavior is calm, cooperative, appropriate ea for age. Pain: Complains of pain in abdomen. Neuro: Level of Consciousness is awake, alert, obeys commands, Oriented to person, place, time, situation. Respiratory: Airway is patent Respiratory effort is even, unlabored, Respiratory pattern is regular, symmetrical. GI: Reports lower abdominal pain, constipation, diarrhea. Derm: Skin is pink, warm \\T\\ dry. Historical: - Allergies: 03:35 NKA; ea - Home Meds: 03:35 Tegretol 250 mg Oral tab every 8 hours [Active]; tamsulosin 0.4 mg Oral cp24 1 cap once ea daily [Active]; Remeron 45 mg Oral tab 1 tab once daily [Active]; Lyrica Oral 1 cap 2 times per day [Active]; lisinopril 40 mg Oral tab 1 tab once daily [Active]; - PMHx: 03:35 Hypertension; Depression; ea - Immunization history:: Adult Immunizations up to date. - Social history:: Smoking status: Patient/guardian denies using tobacco. - Ebola Screening: : No symptoms or risks identified at this time. - Family history:: not pertinent. Screenin:33 Abuse screen: Denies threats or abuse. Nutritional screening: No deficits noted. ea Tuberculosis screening: No symptoms or risk factors identified. Fall Risk None identified. Assessment: 03:36 Reassessment: see triage assessment. ea 04:57 Reassessment: Patient and/or family updated on plan of care and expected duration. Pain ea level reassessed. Patient is alert, oriented x 3, equal unlabored respirations, skin warm/dry/pink. 07:00 Reassessment: RECD REPORT FROM FIDELINA COOPER. 73YO WM P/W 2 WK GEN WEAKNESS. ALL CURRENT bp ORDERS COMPLETED, DISPO PENDING. 07:20 Reassessment: PT D/C HOME AMBULATORY, DX WITH ESSENTIAL HYPERTENSION. bp Vital Signs: 03:32 BP 147 / 114; Pulse 82; Resp 18; Temp 97.6; Pulse Ox 99% on R/A; Weight 71.67 kg; ea Height 5 ft. 10 in. (177.80 cm); 04:58 BP 157 / 114; Pulse 78; Resp 18; Pulse Ox 99% on R/A; ea 05:32 BP 134 / 94; Pulse 81; Resp 18; Pulse Ox 99% on R/A; ea 06:01 BP 145 / 92; Pulse 77; Resp 18; Pulse Ox 97% on R/A; ea 06:32 BP 132 / 89; Pulse 71; Resp 18; Pulse Ox 98% ; ea 07:08 BP 130 / 97; Pulse 66; Resp 16; Temp 97.5; Pulse Ox 100% ; bp 03:32 Body Mass Index 22.67 (71.67 kg, 177.80 cm) ea ED Course: 02:41 Patient arrived in ED. ag3 03:29 Fidelina Palma, KENNETH is Primary Nurse. ea 03:30 Jaylen Smith MD is Attending Physician. luis alberto 03:32 Triage completed. ea 03:35 Patient has correct armband on for positive identification. Bed in low position. Call ea light in reach. Side rails up X2. 03:35 Arm band placed on right wrist. Patient placed in an exam room, on a stretcher, on ea pulse oximetry. 04:12 Inserted saline lock: 20 gauge in right antecubital area, using aseptic technique. ea Blood collected. 04:18 XRAY Chest (1 view) In Process Unspecified. EDMS 04:40 CT Head Brain wo Cont In Process Unspecified. EDMS 05:11 Alfa Mcmahon MD is Referral Physician. luis alberto 06:56 Terry Miller MD is Referral Physician. [facility] 06:56 Ashok Mcbride MD is Referral Physician. luis alberto 07:20 No provider procedures requiring assistance completed. IV discontinued, intact, bp bleeding controlled, No redness/swelling at site. Pressure dressing applied. Administered Medications: 04:12 Drug: NS 0.9% 1000 ml Route: IV; Rate: 1 bolus; Site: right antecubital; ea 07:00 Follow up: IV Status: Completed infusion; IV Intake: 1000ml bp 05:24 Drug: Lopressor 25 mg Route: PO; ea 06:02 Follow up: Response: No adverse reaction; Blood pressure is lowered ea 05:24 Drug: Aspirin 81 mg Route: PO; ea 06:02 Follow up: Response: No adverse reaction ea 06:41 CANCELLED (Other Intervention Used): Enalaprilat 1.25 mg IV at per protocol once; (slow ea IV push) Intake: 07:00 IV: 1000ml; Total: 1000ml. bp Outcome: 05:12 Discharge ordered by . luis alberto 07:20 Discharged to home ambulatory. bp 07:20 Condition: stable 07:20 Discharge instructions given to patient, Instructed on discharge instructions, follow up and referral plans. medication usage, Demonstrated understanding of instructions, follow-up care, medications, Prescriptions given X 1. 07:21 Patient left the ED. bp Signatures: Dispatcher [employer] EDMS Jaylen Smith MD MD cha Antunez, Elena, RN RN Mj Rangel, RN RN Jo Calvillo ag3
--- NOTE | 2019-05-07 05:13 | EDPHYS ---
Physician Documentation [facility] Name: Frank Chung Age: 73 yrs Sex: Male : 1945 Arrival Date: 05/07/2019 Time: 02:41 Bed 7 Private MD: ED Physician Jaylen Smith HPI: 05/07 03:40 This 73 yrs old Male presents to ER via Wheelchair with complaints of luis alberto weakness. 03:40 4months, weak. Onset: The symptoms/episode began/occurred 4 month(s) ago. Severity of luis alberto symptoms: At their worst the symptoms were mild in the emergency department the symptoms are unchanged. The patient has not experienced similar symptoms in the past. Historical: - Allergies: 03:35 NKA; ea - Home Meds: 03:35 Tegretol 250 mg Oral tab every 8 hours [Active]; tamsulosin 0.4 mg Oral cp24 1 cap once ea daily [Active]; Remeron 45 mg Oral tab 1 tab once daily [Active]; Lyrica Oral 1 cap 2 times per day [Active]; lisinopril 40 mg Oral tab 1 tab once daily [Active]; - PMHx: 03:35 Hypertension; Depression; ea - Immunization history:: Adult Immunizations up to date. - Social history:: Smoking status: Patient/guardian denies using tobacco. - Ebola Screening: : No symptoms or risks identified at this time. - Family history:: not pertinent. ROS: 03:40 Constitutional: Negative for fever, chills, and weight loss, Eyes: Negative for injury, luis alberto pain, redness, and discharge, ENT: Negative for injury, pain, and discharge, Neck: Negative for injury, pain, and swelling, Cardiovascular: Negative for chest pain, palpitations, and edema, Respiratory: Negative for shortness of breath, cough, wheezing, and pleuritic chest pain, Abdomen/GI: Negative for abdominal pain, nausea, vomiting, diarrhea, and constipation, Back: Negative for injury and pain, : Negative for injury, bleeding, discharge, and swelling, MS/Extremity: Negative for injury and deformity, Skin: Negative for injury, rash, and discoloration, Psych: Negative for depression, anxiety, suicide ideation, homicidal ideation, and hallucinations, Allergy/Immunology: Negative for hives, rash, and allergies, Endocrine: Negative for neck swelling, polydipsia, polyuria, polyphagia, and marked weight changes, Hematologic/Lymphatic: Negative for swollen nodes, abnormal bleeding, and unusual bruising. 03:40 Neuro: Positive for dizziness, near syncope, weakness. Exam: 03:40 Constitutional: This is a well developed, well nourished patient who is awake, alert, luis alberto and in no acute distress. Head/Face: Normocephalic, atraumatic. Eyes: Pupils equal round and reactive to light, extra-ocular motions intact. Lids and lashes normal. Conjunctiva and sclera are non-icteric and not injected. Cornea within normal limits. Periorbital areas with no swelling, redness, or edema. ENT: Nares patent. No nasal discharge, no septal abnormalities noted. Tympanic membranes are normal and external auditory canals are clear. Oropharynx with no redness, swelling, or masses, exudates, or evidence of obstruction, uvula midline. Mucous membranes moist. Neck: Trachea midline, no thyromegaly or masses palpated, and no cervical lymphadenopathy. Supple, full range of motion without nuchal rigidity, or vertebral point tenderness. No Meningismus. Chest/axilla: Normal chest wall appearance and motion. Nontender with no deformity. No lesions are appreciated. Cardiovascular: Regular rate and rhythm with a normal S1 and S2. No gallops, murmurs, or rubs. Normal PMI, no JVD. No pulse deficits. Respiratory: Lungs have equal breath sounds bilaterally, clear to auscultation and percussion. No rales, rhonchi or wheezes noted. No increased work of breathing, no retractions or nasal flaring. Abdomen/GI: Soft, non-tender, with normal bowel sounds. No distension or tympany. No guarding or rebound. No evidence of tenderness throughout. Back: No spinal tenderness. No costovertebral tenderness. Full range of motion. Male : Normal genitalia with no discharge or lesions. Skin: Warm, dry with normal turgor. Normal color with no rashes, no lesions, and no evidence of cellulitis. MS/ Extremity: Pulses equal, no cyanosis. Neurovascular intact. Full, normal range of motion. Neuro: Awake and alert, GCS 15, oriented to person, place, time, and situation. Cranial nerves II-XII grossly intact. Motor strength 5/5 in all extremities. Sensory grossly intact. Cerebellar exam normal. Normal gait. Psych: Awake, alert, with orientation to person, place and time. Behavior, mood, and affect are within normal limits. Vital Signs: 03:32 BP 147 / 114; Pulse 82; Resp 18; Temp 97.6; Pulse Ox 99% on R/A; Weight 71.67 kg; ea Height 5 ft. 10 in. (177.80 cm); 04:58 BP 157 / 114; Pulse 78; Resp 18; Pulse Ox 99% on R/A; ea 05:32 BP 134 / 94; Pulse 81; Resp 18; Pulse Ox 99% on R/A; ea 06:01 BP 145 / 92; Pulse 77; Resp 18; Pulse Ox 97% on R/A; ea 06:32 BP 132 / 89; Pulse 71; Resp 18; Pulse Ox 98% ; ea 07:08 BP 130 / 97; Pulse 66; Resp 16; Temp 97.5; Pulse Ox 100% ; bp 03:32 Body Mass Index 22.67 (71.67 kg, 177.80 cm) ea MDM: 03:30 Patient medically screened. [facility] 03:42 Data reviewed: vital signs, nurses notes, lab test result(s), EKG, radiologic studies, [facility] CT scan, plain films. 05/07 03:36 Order name: Basic Metabolic Panel; Complete Time: 05:29 [facility] 05/07 03:36 Order name: CBC with Diff; Complete Time: 05:09 [facility] 05/07 03:36 Order name: LFT's; Complete Time: 05:29 [facility] 05/07 03:36 Order name: Magnesium; Complete Time: 05:29 [facility] 05/07 03:36 Order name: NT PRO-BNP; Complete Time: 05:29 [facility] 05/07 03:36 Order name: PT-INR; Complete Time: 05:09 [facility] 05/07 03:36 Order name: Troponin (emerg Dept Use Only); Complete Time: 05:29 [facility] 05/07 03:36 Order name: XRAY Chest (1 view) [facility] 05/07 03:36 Order name: Lipase; Complete Time: 05:29 [facility] 05/07 03:36 Order name: TSH; Complete Time: 05:29 [facility] 05/07 03:36 Order name: Tegretol Level; Complete Time: 05:29 [facility] 05/07 03:42 Order name: CT Head Brain wo Cont [facility] 05/07 05:11 Order name: Urine Dipstick--Ancillary (enter results); Complete Time: 05:29 cm6 05/07 05:31 Order name: Troponin (emerg Dept Use Only): 540 am; Complete Time: 06:34 [facility] 05/07 03:36 Order name: EKG; Complete Time: 03:38 [facility] 05/07 03:36 Order name: Cardiac monitoring; Complete Time: 04:12 [facility] 05/07 03:36 Order name: EKG - Nurse/Tech; Complete Time: 04:12 [facility] 05/07 03:36 Order name: IV Saline Lock; Complete Time: 04:46 [facility] 05/07 03:36 Order name: Labs collected and sent; Complete Time: 04:12 [facility] 05/07 03:36 Order name: O2 Per Protocol; Complete Time: 04:12 [facility] 05/07 03:36 Order name: O2 Sat Monitoring; Complete Time: 04:12 [facility] 05/07 03:36 Order name: Urine Dipstick-Ancillary (obtain specimen); Complete Time: 05:11 [facility] 05/07 05:39 Order name: EKG; Complete Time: 05:40 [facility] 05/07 05:39 Order name: EKG - Nurse/Tech; Complete Time: 05:57 [facility] Administered Medications: 04:12 Drug: NS 0.9% 1000 ml Route: IV; Rate: 1 bolus; Site: right antecubital; ea 07:00 Follow up: IV Status: Completed infusion; IV Intake: 1000ml bp 05:24 Drug: Lopressor 25 mg Route: PO; ea 06:02 Follow up: Response: No adverse reaction; Blood pressure is lowered ea 05:24 Drug: Aspirin 81 mg Route: PO; ea 06:02 Follow up: Response: No adverse reaction ea 06:41 CANCELLED (Other Intervention Used): Enalaprilat 1.25 mg IV at per protocol once; (slow ea IV push) Disposition: 05/07/19 05:12 Discharged to Home. Impression: Weakness, Tobacco abuse counseling, Tobacco use, Essential (primary) hypertension. - Condition is Stable. - Discharge Instructions: Hypertension, Smoking Hazards, Weakness, Fatigue, Hypertension, Gidh-ui-Rhgq, Steps to Quit Smoking, Mvui-vd-Gzbl, How to Take Your Blood Pressure, Hbyb-ya-Kqcy, Weakness, Wgyv-ps-Scmp, Aspirin and Your Heart, Managing Your Hypertension. - Prescriptions for Toprol XL 25 mg Oral Tablet - take 1 tablet by ORAL route once daily; 20 tablet. - Medication Reconciliation Form, Thank You Letter, Antibiotic Education, Prescription Opioid Use form. - Follow up: Private Physician; When: 2 - 3 days; Reason: Recheck today's complaints, Continuance of care, Re-evaluation by your physician. Follow up: Alfa Mcmahon MD; When: 2 - 3 days; Reason: Recheck today's complaints, Re-evaluation by your physician. Follow up: Terry Miller MD; When: 2 - 3 days; Reason: Recheck today's complaints, Re-evaluation by your physician. Follow up: Ashok Mcbride MD; When: 2 - 3 days; Reason: Recheck today's complaints, Re-evaluation by your physician. - Problem is new. - Symptoms have improved. Signatures: Dispatcher [employer] EDJaylen Justin MD MD cha Antunez, Elena, RN RN ea Peltier, Brian, RN RN bp Corrections: (The following items were deleted from the chart) 06:41 05:31 Enalaprilat 1.25 mg IV at per protocol once; (slow IV push) ordered. luis alberto rivera 06:56 05:12 05/07/2019 05:12 Discharged to Home. Impression: Weakness; Tobacco abuse luis alberto counseling; Tobacco use; Essential (primary) hypertension. Condition is Stable. Forms are Medication Reconciliation Form, Thank You Letter, Antibiotic Education, Prescription Opioid Use. Follow up: Private Physician; When: 2 - 3 days; Reason: Recheck today's complaints, Continuance of care, Re-evaluation by your physician. Follow up: Alfa Mcmahon; When: 2 - 3 days; Reason: Recheck today's complaints, Re-evaluation by your physician. Problem is new. Symptoms have improved. luis alberto 07:21 06:56 05/07/2019 05:12 Discharged to Home. Impression: Weakness; Tobacco abuse bp counseling; Tobacco use; Essential (primary) hypertension. Condition is Stable. Discharge Instructions: Hypertension, Smoking Hazards, Weakness, Fatigue, Hypertension, Zinh-mk-Auuh, Steps to Quit Smoking, Oyok-tv-Ktle, How to Take Your Blood Pressure, Cjrg-yz-Ybmi, Weakness, Jqlp-dd-Vsrz, Aspirin and Your Heart, Managing Your Hypertension. Prescriptions for Toprol XL 25 mg Oral Tablet - take 1 tablet by ORAL route once daily; 20 tablet. and Forms are Medication Reconciliation Form, Thank You Letter, Antibiotic Education, Prescription Opioid Use. Follow up: Private Physician; When: 2 - 3 days; Reason: Recheck today's complaints, Continuance of care, Re-evaluation by your physician. Follow up: Alfa Mcmahon; When: 2 - 3 days; Reason: Recheck today's complaints, Re-evaluation by your physician. Follow up: Terry Miller; When: 2 - 3 days; Reason: Recheck today's complaints, Re-evaluation by your physician. Follow up: Ashok Mcbride; When: 2 - 3 days; Reason: Recheck today's complaints, Re-evaluation by your physician. Problem is new. Symptoms have improved. luis alberto
[2019-05-07 05:19] LABS: ALT/SGPT 19 U/L (12-78); AST/SGOT 20 U/L (15-37); Albumin 3.5 g/dL (3.4-5.0); Alkaline Phosphatase 75 U/L (45-117); BUN Blood Urea Nitrogen 17 mg/dL (7-18); Bicarbonate 24 mmol/L (21-32); Bilirubin Direct < 0.1 mg/dL (0-0.2); Bilirubin Total 0.2 mg/dL (0.2-1.0); Glucose Level 86 mg/dL (74-106); Lipase 235 U/L (73-393); NT PRO-BNP 257 pg/mL (<125); Potassium 4.1 mmol/L (3.5-5.1); Protein, Total 7.8 g/dL (6.4-8.2); Sodium Level 135 mmol/L (136-145); Troponin (Emerg Dept Use Only) 0.04 ng/mL (0.0-0.045)
[2019-05-07] MEDS ORDERED: ASPIRIN 81 MG CHEWABLE TABLET ONE (05:20)
[2019-05-07] MEDS ORDERED: METOPROLOL TAR 25 MG TAB ONE (05:20)
[2019-05-07 05:27] LABS: Urine Blood TRACE (NEG); Urine Glucose NEGATIVE (NEG); Urine Protein NEGATIVE (NEG); Urine Specific Gravity 1.015 (1.005-1.030); Urine pH 6.5 (5.0-7.0)
--- NOTE | 2019-05-07 07:25 | EKG ---
Test Date: 2019-05-07 Test Time: 04:00:51 Sheep Sorter: MIRI MEASUREMENT RESULTS: Intervals: Rate: 77 CT: 152 QRSD: 100 QT: 364 QTc: 411 [place]: P: 50 CT: 152 QRS: 79 T: 16 INTERPRETIVE STATEMENTS: Normal sinus rhythm Possible Left atrial enlargement Borderline ECG Compared to ECG 05/26/2018 18:48:33 No significant changes Electronically Signed On 05-07-19 07:25:04 CDT by Timur Hernandez
[2019-05-07 07:33] VITALS: BP 130/97; TEMP 97.5; O2SAT 100
--- NOTE | 2019-05-07 08:17 | RAD REPORT ---
EXAM DESCRIPTION: RAD - Chest Single View - 05/07/2019 4:17 am CLINICAL HISTORY: COPD;Cough Chest pain. COMPARISON: Chest Single View dated 05/26/2018; Chest Pa And Lat (2 Views) dated 06/14/2017 FINDINGS: Portable technique limits examination quality. Ill-defined opacities are present in the left lung base with a small left pleural effusion compatible with developing pneumonia. The heart is mildly enlarged in size. No displaced fractures. IMPRESSION: Mild developing left base pneumonia.
--- NOTE | 2019-05-07 10:39 | RAD REPORT ---
EXAM DESCRIPTION: CT of the head without contrast CLINICAL HISTORY: DIZZINESS COMPARISON: None available TECHNIQUE: Axial CT of the head obtained from the skull apex to the skull base without contrast. FINDINGS: No acute intracranial hemorrhage identified. No mass, mass effect, shift of the midline, a bnormal extra-axial fluid collection or CT evidence of acute ischemic change identified. The ventricu lar system and sulcal spaces are age. Scattered areas of hypodensity throughout the supratentorial white matter are nonspecific and may be related to chronic small vessel ischemic change. The visualized paranasal sinuses and the mastoids are clear. No skull fracture identified. Visualized orbits and globes are unremarkable. Atherosclerotic vidhya cification of the intracranial internal carotid arteries. DLP: 805.7 mGy-cm IMPRESSION: 1. No acute intracranial abnormality by CT criteria. This exam was performed according to our departmental dose-optimization program, which includes autom ated exposure control, adjustment of the mA and/or kV according to patient size and/or use of iterati ve reconstruction technique. Electronically signed by: Maxx Najera 05/07/2019 5:00 AM CDT Due to temporary technical issues with the PACS/Fluency reporting system, reports are being signed by the in house radiologist as a courtesy to ensure prompt reporting. The interpreting radiologist is f ully responsible for the content of the report.
--- NOTE | 2019-05-07 12:21 | EKG ---
Test Date: 2019-05-07 Test Time: 05:51:50 Accounts Receivable Specialist: MIRI MEASUREMENT RESULTS: Intervals: Rate: 78 AR: 162 QRSD: 100 QT: 374 QTc: 426 [place]: P: 46 AR: 162 QRS: 42 T: 5 INTERPRETIVE STATEMENTS: Normal sinus rhythm Possible Left atrial enlargement Borderline ECG Compared to ECG 05/07/2019 04:00:51 No significant changes Electronically Signed On 05-07-19 12:20:19 CDT by Timur Hernandez
== END 2019-05-07 07:21 | disposition home or self-care (01) ==
LOC: ER 02:39
DX: R53.1 Weakness (principal); I10 Essential (primary) hypertension; F32.9 Major depressive disorder, single episode, unspecified; Z71.6 Tobacco abuse counseling; Z72.0 Tobacco use
CPT/HCPCS: 93005 ×2; 85025; 80048; 36415; 83735; 80156; 85610; 80076; 84443; 81003; 84484 ×2; 83690; 83880; 70450; 71045; J7030; 96360; 96361; 99284

== ENCOUNTER 2021-02-08 17:04 | Inpatient (IN) | payer OTHER ==
--- OUTSIDE RECORDS SUMMARY | 2021-02-08 17:06 | XMS REPORT | Continuity of Care Document ---
:1945 Author Organization [facility] t Address [address] [place] [address] Care Team Providers Name Role Phone Unavailable Unavailable Unavailable Problems This patient has no known problems. Allergies, Adverse Reactions, Alerts This patient has no known allergies or adverse reactions. Medications Ordered Filled Start Stop Current Ordering Indication Dosage Frequency Signature Comments Components Source Medication Medication Date Date Medication? Clinician (SIG) Name Name Imitrex Imitrex Yes Na Aragon [address] [facility] Flomax Flomax Yes Na Aragon [address] [facility] Lisinopril Lisinopril Yes Na Aragon [address] [facility] Tizanidine Tizanidine Yes Na Aragon TAKE [address] [facility] HCl HCl TABLET BY [facility] 12 l HOURS Outpat[facility] NEEDED [facility] SPASM Flonase Flonase Yes Na Aragon [address] [facility] Remeron Remeron Yes Na Aragon [address] [facility] Carbamazepi Carbamazepi Yes Na Aragon [address] [facility] ne [facility] Ventolin Ventolin Yes Na Aragon [address] [facility] HFA HFA needed [facility] Lyrica Lyrica Yes Na Aragon [address] [facility] Immunizations Ordered Filled Immunization Date Status Comments Sourc e Immunization Name Name FLUZONE HIGH DOSE FLUZONE HIGH DOSE 2018-07-[address] [facility] OVER [facility] 00:[facility]:00 [facility] Ambrocio Albrecht 2018-07-[address] [facility] 00:[facility]00 [facility] Out[facility] Procedures This patient has no known procedures. Encounters Start End Encounter Admission Attending Care Care Encounter Source Date/Time Date/Time Type Type Clinicians Facility Department ID 2020-11-26 2020-11-26 [facility] [id number] 2020-10-30 2020-10-30 [facility] [id number] [facility] 2020-10-27 2020-10-27 [facility] [id number] [facility] 2020-08-27 2020-08-27 [facility] [id number] [facility] 2020-07-17 2020-07-17 [facility] [id number] [facility] 2020-05-29 2020-05-29 [facility] [id number] [facility] 15:[facility]00 15:00:00 t Get[facility]Rx s - Rx[facility] l Medicine Outpati ent Clinics 2020-05-29 2020-05-29 [facility] [id number] [facility] 15:00:00 15:00:00 t GetMyRx s - Rx[facility] Medicine Outpat[facility] ent Clinics 2020-05-11 2020-05-11 [facility] [id number] [facility] 13:51:00 13:51:00 t [facility] Medicine Outpati ent Clinics 2020-02-03 2020-02-03 [facility] [id number] [facility] 13:20:00 13:20:00 t GetMyRx s mobintent [facility] Medicine Medicine Outpati ent Clinics 2019-10-24 2019-10-24 [facility] [id number] [facility] 16:00:00 16:00:[place] [facility] [place] [facility] - [facility] Medicine l Medicine Outpati ent Clinics 2019-07-23 2019-07-23 [facility] [id number] [address] 15:40:00 15:40:00 [place] RxRevu [employer] s - Drive [facility] Medicine l Medicine Outpati ent Clinics 2019-07-09 2019-07-09 [facility] [id number] 15:20:00 15:20:00 [place] [facility] [employer] s - Drive [facility] Medicine Outpati ent Clinics 2019-04-17 2019-04-17 [facility] [id number] 10:20:00 10:20:00 [place] [employer] [place] - Drive [facility] Medicine Outpati ent Clinics 2019-04-10 2019-04-10 [facility] [id number] 11:00:00 11:00:00 [place] - [address] [facility] Medicine Medicine Outpati ent Clinics 2019-01-03 2019-01-03 [facility] [id number] [address] 16:00:00 16:00:00 [place] - Drive [facility] Medicine Outpati ent Clinics 2018-11-09 2018-11-09 [facility] [id number] [address] 11:47:00 11:47:00 [place] - [address] [facility] Medicine Medicine Outpati ent Clinics 2018-10-03 2018-10-03 [facility] [id number] [facility] 14:00:00 14:00:00 [place] - [address] [facility] Medicine Outpati ent Clinics 2018-07-03 2018-07-03 [facility] [id number] 08:30:00 08:30:00 [place] - [address] [facility] Medicine Medicine Outpati ent Clinics 2018-04-16 2018-04-16 [facility] [id number] 15[facility]57:00 15:57:00 [place] - [address] [facility] Medicine Outpati ent Clinics 2018-04-02 2018-04-02 [facility] [id number] 09:45:00 09:45:[address] [place] [address] [employer] [address] - Drive [facility] Medicine Outpati ent Clinics 2018-03-15 2018-03-15 [facility] [id number] 10:15:00 10:15:00 [place] [employer] s - Drive [facility] Medicine Outpati ent Clinics 2018-03-15 2018-03-15 [facility] [id number] 09:52:00 09:52:00 [place] [employer] s - Drive [facility] Medicine Outpati ent Clinics 2018-03-15 2018-03-15 [facility] [id number] 09:42:00 09:42:00 t [employer] s - Drive [facility] Medicine Outpati ent Clinics 2017-12-25 2017-12-25 [facility] [id number] 15:15:00 15:15:00 [place] [employer] s - Drive [facility] Medicine Outpati ent Clinics Results This patient has no known results.
--- NOTE | 2021-02-08 18:37 | RAD REPORT ---
EXAM DESCRIPTION: RAD - Hand Right 3 View - 02/08/2021 6:26 pm CLINICAL HISTORY: ANIMAL BITE COMPARISON: <Comparisons> FINDINGS: No acute fracture or dislocation is seen. Moderate multi joint arthritic changes are prese nt. No radiopaque foreign body.
[2021-02-08 18:52] LABS: Absolute Lymphocytes (CBC) 1.3 K/uL (0.7-4.9); Basophils % 0.7 % (0-1.3); Hematocrit 48.7 % (39.6-49.0); Lymphocytes % 11.2 % (15.3-44.8); MPV 7.6 fL (7.6-11.3); RBC Red Blood Cell Count 5.36 M/uL (4.33-5.43)
[2021-02-08] MEDS ORDERED: MORPHINE 4 MG/ML SYR ONE (18:58)
[2021-02-08] MEDS ORDERED: TETANUS & DIPHTHERIA TOX,ADULT 0.5 ML VIAL ONE (18:58)
[2021-02-08] MEDS ORDERED: ONDANSETRON 4 MG/2 ML VIAL ONE (18:58)
[2021-02-08 19:09] LABS: Albumin 3.7 g/dL (3.4-5.0); Bilirubin Total 0.5 mg/dL (0.2-1.0); Potassium 4.5 mmol/L (3.5-5.1); Protein, Total 8.9 g/dL (6.4-8.2)
[2021-02-08] MEDS ORDERED: NA CHLORIDE 0.9% 100 ML ONE (20:40)
[2021-02-08] MEDS ORDERED: AMPICILLIN/SULBACT 1.5GM VIAL ONE (20:40)
--- NOTE | 2021-02-08 20:40 | ER ---
Nurse's Notes [facility] Name: Frank Chung Age: 75 yrs Sex: Male : 1945 Arrival Date: 02/08/2021 Time: 17:05 Bed 25 Private MD: Diagnosis: Bitten by cat;Puncture wound without foreign body of right hand Presentation: 02/08 17:19 Chief complaint: Patient states: Cat bite on R hand, on 3rd digit last night. It was a ca1 stray cat. R hand swelling, red and very tender. Coronavirus screen: Client denies travel out of the [place] in the last 14 days. At this time, the client does not indicate any symptoms associated with coronavirus-19. Ebola Screen: Patient negative for fever greater than or equal to 101.5 degrees Fahrenheit, and additional compatible Ebola Virus Disease symptoms Patient denies exposure to infectious person. Patient denies travel to an Ebola-affected area in the 21 days before illness onset. No symptoms or risks identified at this time. Initial Sepsis Screen: Does the patient meet any 2 criteria? No. Patient's initial sepsis screen is negative. Does the patient have a suspected source of infection? No. Patient's initial sepsis screen is negative. Risk Assessment: Do you want to hurt yourself or someone else? Patient reports no desire to harm self or others. Onset of symptoms was February 08, 2021. 17:19 Method Of Arrival: Ambulatory ca1 17:19 Acuity: KEVIN 4 ca1 17:49 Acuity: KEVIN 3 ca1 Triage Assessment: 18:55 Bite description: animal information: vaccination(s) is not applicable. zb 18:55 Bite description: bite sustained to right hand by a cat. zb Historical: - Allergies: 17:23 NKA; ca1 - Home Meds: 17:23 lisinopril 40 mg Oral tab 1 tab once daily [Active]; Lyrica Oral 1 cap 2 times per day ca1 [Active]; Remeron 45 mg Oral tab 1 tab once daily [Active]; tamsulosin 0.4 mg Oral cp24 1 cap once daily [Active]; Tegretol 250 mg Oral tab every 8 hours [Active]; Cymbalta oral oral [Active]; - PMHx: 17:23 Depression; Hypertension; ca1 - PSHx: 17:23 None; ca1 - Immunization history:: Client reports receiving the 1st dose of the Covid vaccine, shaunna Last tetanus immunization: unknown, Pneumococcal vaccine is up to date, Flu vaccine is up to date. - Social history:: Smoking status: Patient reports the use of cigarette tobacco products, smokes one-half pack cigarettes per day. Screenin:30 Abuse screen: Denies threats or abuse. Denies injuries from another. Nutritional zb screening: No deficits noted. Tuberculosis screening: No symptoms or risk factors identified. Fall Risk None identified. Assessment: 18:30 General: Appears uncomfortable, Behavior is anxious. Pain: Complains of pain in right zb hand Pain currently is 7 out of 10 on a pain scale. Quality of pain is described as aching, Pain began suddenly. Neuro: Level of Consciousness is awake, alert, obeys commands, Oriented to person, place, time, situation. Cardiovascular: Heart tones S1 S2 present Capillary refill < 3 seconds Patient's skin is warm and dry. Respiratory: Airway is patent Respiratory effort is even, unlabored, Respiratory pattern is regular, symmetrical. GI: Abdomen is flat. Derm: Skin is intact, Bruising that is bright red, on right hand Reports pain that is 7 out of 10 on a pain scale. Musculoskeletal: Circulation, motion, and sensation intact. Range of motion: intact in all extremities, Swelling present in right hand. 18:30 Derm: Skin is normal. zb 19:38 Reassessment: Patient appears in no apparent distress at this time. Patient and/or zb family updated on plan of care and expected duration. Pain level reassessed. Patient is alert, oriented x 3, equal unlabored respirations, skin warm/dry/pink. patient c/o of headache. states Tylenol doesn't work for head. notified ECP. 20:04 Reassessment: ECP at bedside explaining care. zb 21:53 Reassessment: Called Scooby JONAS, spoke with Georgiana. Case # pending per animal control ca1 personal availability. 22:49 Reassessment: Patient appears in no apparent distress at this time. Patient and/or zb family updated on plan of care and expected duration. Pain level reassessed. Patient is alert, oriented x 3, equal unlabored respirations, skin warm/dry/pink. patient waiting room. no acute events at this time. 23:50 Reassessment: Patient appears in no apparent distress at this time. Patient and/or zb family updated on plan of care and expected duration. Pain level reassessed. Patient is alert, oriented x 3, equal unlabored respirations, skin warm/dry/pink. patient awaiting a room. give food. Vital Signs: 17:19 BP 142 / 98; Pulse 94; Resp 15 S; Temp 97.6(TE); Pulse Ox 99% on R/A; Weight 74.84 kg ca1 (R); Height 5 ft. 10 in. (177.80 cm) (R); Pain 8/10; 18:50 BP 126 / 87; Pulse 84; Resp 16; Pulse Ox 100% on R/A; zb 19:38 BP 118 / 87; Pulse 77; Resp 16; Pulse Ox 96% on R/A; zb 20:30 BP 124 / 88; Pulse 73; Resp 16; Pulse Ox 94% on R/A; zb 21:30 BP 152 / 87; Pulse 82; Resp 16; Pulse Ox 99% on R/A; zb 22:30 BP 132 / 79; Pulse 86; Resp 18; Pulse Ox 97% on R/A; zb 23:00 BP 94 / 77; Pulse 74; Resp 16; Pulse Ox 96% on R/A; zb 17:19 Body Mass Index 23.67 (74.84 kg, 177.80 cm) ca1 ED Course: 17:05 Patient arrived in ED. as 17:21 Triage completed. ca1 17:23 Arm band placed on right wrist. ca1 17:35 Félix Henley NP is PHCP. pm1 17:35 Jaylen Smith MD is Attending Physician. pm1 17:58 Maggie Ascencio, KENNETH is Primary Nurse. zb 18:26 XRAY Hand RIGHT 3 View In Process Unspecified. EDMS 18:30 Patient has correct armband on for positive identification. Bed in low position. Call zb light in reach. Pulse ox on. NIBP on. Door closed. Noise minimized. 18:30 Inserted saline lock: 20 gauge in right antecubital area, using aseptic technique. zb Blood collected. 20:40 Daren Dominguez DO is Hospitalizing Provider. pm1 02/09 00:38 No provider procedures requiring assistance completed. Patient admitted, IV remains in iw place. Administered Medications: 02/08 18:47 Drug: morphine 4 mg {Note: RASS 0.} Route: IVP; Site: left antecubital; zb 19:00 Follow up: Response: No adverse reaction; Pain is decreased; RASS: Alert and Calm (0) zb 18:47 Drug: Zofran (Ondansetron) 4 mg Route: IVP; Site: left antecubital; zb 20:41 Follow up: Response: No adverse reaction; Nausea is decreased zb 18:49 Drug: Tetanus-Diphtheria Toxoid Adult 0.5 ml {Trouble Locater: [employer] Exp: zb 02/21/2022. Lot #: [id number]. } Route: IM; Site: left deltoid; 20:41 Follow up: Response: No adverse reaction zb 20:41 Drug: Unasyn (ampicillin-sulbactam) 1.5 grams Route: IVPB; Infused Over: 30 mins; Site: zb left antecubital; 21:20 Follow up: Response: No adverse reaction; IV Status: Completed infusion; IV Intake: zb 100ml Intake: 21:20 IV: 100ml; Total: 100ml. zb Outcome: 20:39 Discharge ordered by MD. pm1 20:40 Decision to Hospitalize by Provider. pm1 05 00:38 Admitted to Med/surg via wheelchair, room 428. iw Condition: good 00:56 Patient left the ED. iw Signatures: Dispatcher [employer] EDMS Connie Contreras Irene, RN RN iw Félix Henley, 5TH GRADE TEACHER 5TH GRADE TEACHER pm1 Felipa Gaytan RN RN ca1 Maggie Ascencio RN RN zb Corrections: (The following items were deleted from the chart) 02/08 17:23 17:19 Chief complaint: Patient states: Cat bite on R hand, on 3rd digit last night. It ca1 was a stray cat. R hand swelling, red and very tender ca1 18:49 18:47 Zofran (Ondansetron) 4 mg IVP in right antecubital zb zb 18:57 18:30 Musculoskeletal: Circulation, motion, and sensation intact. Range of motion: zb intact in all extremities, zb 21:58 21:53 Reassessment: Called Scooby JONAS, spoke with Georgiana. Case # pending per animal ca1 control personal availability iw 02/09 00:34 02/08 22:30 BP 132 / 79; Pulse 16bpm; Resp 18bpm; Pulse Ox 97% RA; zb zb
--- NOTE | 2021-02-08 20:40 | EDPHYS ---
Physician Documentation [facility] Name: Frank Chung Age: 75 yrs Sex: Male : 1945 Arrival Date: 02/08/2021 Time: 17:05 Bed 25 Private MD: ED Physician Jaylen Smith HPI: 02/08 17:56 This 75 yrs old Male presents to ER via Ambulatory with complaints of Cat pm1 Bite, Hand Swelling. 17:56 The patient was bitten on the right hand. Onset: The symptoms/episode began/occurred pm1 last night. Animal information: The animal was reported to appear healthy. is unknown, The animal is unknown and not captured. Animal control has not been notified. Secondary to the bite the patient reports multiple puncture wounds. Associated signs and symptoms: Pertinent positives: swelling at site, redness streaking up arm. Severity of symptoms: in the emergency department the symptoms are actually worse. The patient has not experienced similar symptoms in the past. The patient has not recently seen a physician. Patient was feeding a stray cat in his neighborhood that he interacts with on a regular basis and it bit him in the right hand last night. Historical: - Allergies: 17:23 NKA; ca1 - Home Meds: 17:23 lisinopril 40 mg Oral tab 1 tab once daily [Active]; Lyrica Oral 1 cap 2 times per day ca1 [Active]; Remeron 45 mg Oral tab 1 tab once daily [Active]; tamsulosin 0.4 mg Oral cp24 1 cap once daily [Active]; Tegretol 250 mg Oral tab every 8 hours [Active]; Cymbalta oral oral [Active]; - PMHx: 17:23 Depression; Hypertension; ca1 - PSHx: 17:23 None; ca1 - Immunization history:: Client reports receiving the 1st dose of the Covid vaccine, shaunna Last tetanus immunization: unknown, Pneumococcal vaccine is up to date, Flu vaccine is up to date. - Social history:: Smoking status: Patient reports the use of cigarette tobacco products, smokes one-half pack cigarettes per day. ROS: 17:56 Constitutional: Negative for fever, chills, and weight loss, Cardiovascular: Negative pm1 for chest pain, palpitations, and edema, Respiratory: Negative for shortness of breath, cough, wheezing, and pleuritic chest pain, Abdomen/GI: Negative for abdominal pain, nausea, vomiting, diarrhea, and constipation, Back: Negative for injury and pain. 17:56 MS/extremity: Positive for puncture, of the right hand, Negative for decreased range of motion, deformity. 17:56 Skin: Positive for puncture, of the right hand. 17:56 Neuro: Negative for numbness, tingling, weakness. Exam: 17:56 Constitutional: This is a well developed, well nourished patient who is awake, alert, pm1 and in no acute distress. Head/Face: Normocephalic, atraumatic. 17:56 Cardiovascular: Exam negative for acute changes, Rate: normal, Rhythm: regular, Pulses: no pulse deficits are appreciated. 17:56 Respiratory: Exam negative for acute changes, respiratory distress, shortness of breath. 17:56 Musculoskeletal/extremity: Exam is negative for acute changes, Extremities: grossly normal except: noted in the lateral aspect of proximal phalanx of right index finger and medial aspect of proximal phalanx of right middle finger: puncture, swelling, tenderness, noted in the dorsum of right hand: swelling, tenderness, lymphangitis on left forearm. 17:56 Skin: Appearance: normal except for affected area, cellulitis, well demarcated, on the pm1 right hand and dorsal aspect of right forearm. 17:56 Neuro: Exam negative for acute changes, Orientation: is normal, Mentation: is normal, Motor: is normal, moves all fours. Vital Signs: 17:19 BP 142 / 98; Pulse 94; Resp 15 S; Temp 97.6(TE); Pulse Ox 99% on R/A; Weight 74.84 kg ca1 (R); Height 5 ft. 10 in. (177.80 cm) (R); Pain 8/10; 18:50 BP 126 / 87; Pulse 84; Resp 16; Pulse Ox 100% on R/A; zb 19:38 BP 118 / 87; Pulse 77; Resp 16; Pulse Ox 96% on R/A; zb 20:30 BP 124 / 88; Pulse 73; Resp 16; Pulse Ox 94% on R/A; zb 21:30 BP 152 / 87; Pulse 82; Resp 16; Pulse Ox 99% on R/A; zb 22:30 BP 132 / 79; Pulse 86; Resp 18; Pulse Ox 97% on R/A; zb 23:00 BP 94 / 77; Pulse 74; Resp 16; Pulse Ox 96% on R/A; zb 17:19 Body Mass Index 23.67 (74.84 kg, 177.80 cm) ca1 MDM: 17:37 Patient medically screened. luis alberto 20:26 Physician consultation: William Gay MD was called at 20:26, was contacted at 20:26, pm1 regarding consult, patient's condition, and will see patient tomorrow, would like admission per Dr. Daren Dominguez DO NPO after midnight. 20:36 Data reviewed: vital signs. Data interpreted: Pulse oximetry: on room air is 96 %. pm1 Interpretation: normal. Counseling: I had a detailed discussion with the patient and/or guardian regarding: the historical points, exam findings, and any diagnostic results supporting the discharge/admit diagnosis, lab results, radiology results, the need for further work-up and treatment in the hospital. 02/08 17:47 Order name: CBC with Diff; Complete Time: 18:56 pm1 02/08 17:47 Order name: CMP; Complete Time: 19:26 pm1 02/08 17:47 Order name: XRAY Hand RIGHT 3 View; Complete Time: 18:49 pm1 02/08 17:47 Order name: Blood Culture Adult (2) pm1 02/08 20:43 Order name: COVID-19 : Document "Date of Symptom Onset" if Symptomatic. pm1 02/08 23:05 Order name: SARS-COV-2 RT PCR; Complete Time: 09:43 EDMS 02/08 17:47 Order name: IV Saline Lock; Complete Time: 18:57 pm1 02/08 21:22 Order name: Misc. Order: Contact animal control; Complete Time: 21:53 pm1 Administered Medications: 18:47 Drug: morphine 4 mg {Note: RASS 0.} Route: IVP; Site: left antecubital; zb 19:00 Follow up: Response: No adverse reaction; Pain is decreased; RASS: Alert and Calm (0) zb 18:47 Drug: Zofran (Ondansetron) 4 mg Route: IVP; Site: left antecubital; zb 20:41 Follow up: Response: No adverse reaction; Nausea is decreased zb 18:49 Drug: Tetanus-Diphtheria Toxoid Adult 0.5 ml {Cobbler Apprentice: [employer]. Exp: zb 02/21/2022. Lot #: [id number]. } Route: IM; Site: left deltoid; 20:41 Follow up: Response: No adverse reaction zb 20:41 Drug: Unasyn (ampicillin-sulbactam) 1.5 grams Route: IVPB; Infused Over: 30 mins; Site: zb left antecubital; 21:20 Follow up: Response: No adverse reaction; IV Status: Completed infusion; IV Intake: zb 100ml Disposition: 02/09 09:47 Co-signature as Attending Physician, Jaylen Smith MD I agree with the assessment and luis alberto plan of care. Disposition: 02/08/21 20:40 Hospitalization ordered by Daren Dominguez for Inpatient Admission. Preliminary diagnosis are Bitten by cat, Puncture wound without foreign body of right hand. - Bed requested for Telemetry/MedSurg (Inpatient). - Status is Inpatient Admission. iw - Condition is Stable. - Problem is new. - Symptoms have improved. Signatures: Dispatcher [employer] EDMS Juli Rangel RN RN mw Anderson, Corey, MD MD cha Williams, Irene, RN RN iw Marinas, Patrick, ENVIRONMENTAL AUDITOR ENVIRONMENTAL AUDITOR pm1 Lucila, Felipa RN Maggie Florez RN RN zb Corrections: (The following items were deleted from the chart) 02/08 20:40 20:39 02/08/2021 20:39 Discharged to Home. Impression: Bitten by cat; Puncture wound pm1 without foreign body of right hand. Condition is Stable. Forms are Medication Reconciliation Form, Thank You Letter, Antibiotic Education, Prescription Opioid Use. Follow up: Emergency Department; When: As needed; Reason: Worsening of condition. Follow up: Private Physician; When: 2 - 3 days; Reason: Recheck today's complaints, Continuance of care, Re-evaluation by your physician. Problem is new. Symptoms have improved. pm1 23:12 20:40 Hospitalization Ordered by Daren Dominguez DO for Inpatient Admission. Preliminary mw diagnosis is Bitten by cat; Puncture wound without foreign body of right hand. Bed requested for Telemetry/MedSurg (Inpatient). Status is Inpatient Admission. Condition is Stable. Problem is new. Symptoms have improved. pm1 02/09 00:56 02/08 23:12 02/08/2021 20:40 Hospitalization Ordered by Daren Dominguez DO for Inpatient iw Admission. Preliminary diagnosis is Bitten by cat; Puncture wound without foreign body of right hand. Bed requested for Telemetry/MedSurg (Inpatient). Status is Inpatient Admission. Condition is Stable. Problem is new. Symptoms have improved. mw
--- NOTE | 2021-02-08 22:04 | P.HP ---
Certification for Inpatient Patient admitted to: Inpatient With expected LOS: >2 Midnights Patient will require the following post-hospital care: None Practitioner: I am a practitioner with admitting privileges, knowledge of patient current condition, hospital course, and medical plan of care. Services: Services provided to patient in accordance with Admission requirements found in Title 42 Section 412.3 of the Code of Federal Regulations Patient History Date of Service: 02/08/21 Primary Care Provider: Dr. Aragon Reason for admission: cat bite/cellulitis History of Present Illness: 75-year-old male with history of hypertension, depression presents emergency department after sustaining a cat bite on 02/07/2021 at around 8:00 p.m.. Patient reports he has a stenting to right the cat and it bit his right hand. Patient with puncture hernandez noted to fingers, redness of the hand with some lymphangitis extending up the right forearm area. Lab significant for white blood cell count 12 GFR 76 x-ray negative for any foreign bodies. Case was discussed with hand/plastic surgery who wishes for patient to be admitted overnight and on IV antibiotics, NPO after midnight. Allergies No Known Allergies Allergy (Unverified 09/13/12 00:19) - Past Medical/Surgical History -: Hypertension -: Depression/anxiety -: Back surgery x2 Psychosocial/ Personal History: Patient is retired, lives with his cousin - Family History Family History: Reviewed- Non-Contributory - Social History Smoking Status: Current every day smoker Counseled patient to stop smoking for: less than 10 minutes Smoking therapy provided: No (Patient deferred) Place of Residence: Home Review of Systems 10-point ROS is otherwise unremarkable Musculoskeletal: Hand Pain, As per HPI Physical Examination - Physical Exam General: Alert, In no apparent distress, Oriented x3 HEENT: Atraumatic, PERRLA, Mucous membr. moist/pink, EOMI, Sclerae nonicteric Neck: Supple, 2+ carotid pulse no bruit, No LAD, Without JVD or thyroid abnormality Respiratory: Clear to auscultation bilaterally, Normal air movement Cardiovascular: Regular rate/rhythm, Normal S1 S2 Gastrointestinal: Normal bowel sounds, No tenderness Musculoskeletal: Erythema, Tenderness, Warmth Integumentary: No rashes, Tenderness/swelling, Erythema, Warmth Neurological: Normal gait, Normal speech, Normal strength at 5/5 x4 extr, Normal tone, Normal affect Lymphatics: No axilla or inguinal lymphadenopathy - Studies Laboratory Data (last 24 hrs) 02/08/21 18:34: Sodium 137, Potassium 4.5, BUN 12, Creatinine 0.97, Glucose 91, Total Bilirubin 0.5, AST 21, ALT 21, Alkaline Phosphatase 77 02/08/21 18:34: WBC 12.00 H, Hgb 16.4, Hct 48.7, Plt Count 361 Assessment and Plan - Plan Assessment Cellulitis/lymphangitis of the right hand involving the 2nd 3rd and 4th phalanges secondary to cat bite Hypertension, anxiety/depression Plan Cellulitis/lymphangitis of the right hand involving the 2nd 3rd and 4th phalanges secondary to cat bite: NPO after midnight, plastics/hand surgery consulted. Continue with IV unison, p.r.n. pain medications. DVT prophylaxis with SCDs. Possible surgical intervention tomorrow, appreciate further input from surgery. Hypertension, anxiety/depression: Continue home medications. Discharge Plan: Home Plan to discharge in: 72 Hours - Advance Directives Does patient have a Living Will: No Does patient have a Durable POA for Healthcare: No - Code Status/Comfort Care Code Status Assessed: Yes (Full code) Critical Care: No Time Spent Managing Pts Care (In Minutes): 55
[2021-02-09] MEDS ORDERED: ONDANSETRON 4 MG/2 ML VIAL IV PRN (01:01)
[2021-02-09] MEDS ORDERED: NA CHLORIDE 0.9% 1,000 ML IV SCH (01:01)
[2021-02-09] MEDS ORDERED: HYDROCODONE/APAP 5/325 MG TAB PO PRN (01:01)
[2021-02-09] MEDS ORDERED: AMPICILLIN/SULBACT 1.5GM VIAL IVPB SCH (01:01)
[2021-02-09] MEDS: MORPHINE 2 MG/ML SYR IV PRN ×2 (01:23→10:21)
[2021-02-09 01:24] VITALS: BMI 23.1
[2021-02-09] MEDS ORDERED: AMPICILLIN/SULBACT 1.5 GM in NA CHLORIDE 0.9% 100 ML IVPB ONE (02:00)
[2021-02-09] MEDS ORDERED: MELATONIN 5 MG TABLET PO PRN (02:10)
[2021-02-09] MEDS ORDERED: AMPICILLIN/SULBACT 1.5GM VIAL ONE (02:48)
[2021-02-09] MEDS ORDERED: AMPICILLIN/SULBACTAM 3GM/VIAL ONE (02:49)
[2021-02-09] MEDS ORDERED: NA CHLORIDE 0.9% 100 ML ONE (03:07)
[2021-02-09 04:02] LABS: Absolute Lymphocytes (CBC) 2.1 K/uL (0.7-4.9); Basophils % 1.2 % (0-1.3); Hematocrit 42.8 % (39.6-49.0); Lymphocytes % 22.9 % (15.3-44.8); MPV 7.5 fL (7.6-11.3); RBC Red Blood Cell Count 4.74 M/uL (4.33-5.43)
[2021-02-09 04:15] LABS: Albumin 3.1 g/dL (3.4-5.0); Bilirubin Total 0.5 mg/dL (0.2-1.0); Potassium 3.7 mmol/L (3.5-5.1); Protein, Total 7.7 g/dL (6.4-8.2)
[2021-02-09] MEDS: AMPICILLIN/SULBACT 1.5 GM in NA CHLORIDE 0.9% 100 ML IVPB SCH ×4 (06:00→23:49)
[2021-02-09] MEDS: KCL 20 MEQ/100 mL IVPB 20 MEQ/100 ML BAG IV SCH ×2 (09:00→10:20)
--- NOTE | 2021-02-09 09:50 | P.PN ---
Subjective Date of Service: 02/09/21 Primary Care Provider: Dr. Aragon Chief Complaint: cat bite/cellulitis Subjective: Improving, Doing well Physical Examination - Vital Signs Temperature: 97.7 F Blood Pressure: 138/87 Pulse: 68 Respirations: 16 Pulse Ox (%): 97 - Studies Laboratory Data (last 24 hrs) 02/08/21 18:34: Sodium 137, Potassium 4.5, BUN 12, Creatinine 0.97, Glucose 91, Total Bilirubin 0.5, AST 21, ALT 21, Alkaline Phosphatase 77 02/08/21 18:34: WBC 12.00 H, Hgb 16.4, Hct 48.7, Plt Count 361 Assessment & Plan Discharge Plan: Home Plan to discharge in: 48 Hours Physician Review Additional Text: Physical Exam: GENERAL: The patient is a well-developed, well-nourished, in no apparent distress. Alert and oriented x3. VITAL SIGNS: Reviewed HEENT: Head is normocephalic and atraumatic. Extraocular muscles are intact. Pupils are equal, round, and reactive to light and accommodation. Nares appeared normal. Mouth is well hydrated and without lesions. Mucous membranes are moist. NECK: Supple. No carotid bruits. No lymphadenopathy or thyromegaly. LUNGS: Clear to auscultation. No crackles or wheezes are heard. HEART: Regular rate and rythem, no appreciable gallops, rubs, murmurs or extra heart sounds ABDOMEN: Soft, nontender, and nondistended. Positive bowel sounds. No hepatosplenomegaly was noted. EXTREMITIES: Erythema, swelling to the right hand noted. Puncture wounds noted to the right hand. NEUROLOGIC: Patient alert, cooperative. SKIN: As above. Erythema, swelling to the right hand noted with improvement since yesterday. Impression: Cellulitis/lymphangitis of the right hand involving the 2nd 3rd and 4th phalanges secondary to cat bite Hypertension Depression with anxiety Chronic pain Plan Cellulitis/lymphangitis of the right hand involving the 2nd 3rd and 4th phalanges secondary to cat bite: Erythema, swelling improved. Continue IV antibiotic therapyampicillin. Continue with pain medication. Patient remains n.p.o. at this time in preparation for surgery. Plastic surgery consulted. Await recommendations. Anticipate improvement over the next 48 hours. Hypertension: Obtain and restart home medicationlisinopril. Will monitor and adjust appropriately. Depression with anxiety: Continue with home medications-Tegretol and Remeron. Chronic pain: Continue with pain medication. Continue Lyrica. Hold muscle relaxer at this time. Code Status: Full Code DVT prophylaxis: Lovenox Advanced Care Planning-30 minutes: Patient desires to go home at discharge. Time Spent Managing Pts Care (In Minutes): 55
[2021-02-09] MEDS ORDERED: NA CHLORIDE 0.9% 250 ML ONE (10:24)
[2021-02-09] MEDS ORDERED: Ringers Lactate 1,000 ML IV ONE (12:28)
[2021-02-09] MEDS ORDERED: propofoL 200 MG/20 ML VIAL IV ONE (12:37)
[2021-02-09] MEDS ORDERED: FENTANYL CITR 100 MCG/2 ML ONE (12:37)
[2021-02-09] MEDS ORDERED: LIDOCAINE 2% MPF 5 ML VIAL ONE (12:37)
[2021-02-09] MEDS ORDERED: dexAMETHasone 4 MG/ML VIAL ONE (13:22)
[2021-02-09] MEDS ORDERED: KETOROLAC 30 MG/ML INJ ONE (13:22)
[2021-02-09] MEDS ORDERED: EPHEDRINE SULF 50 MG/ML VIAL ONE (13:37)
[2021-02-09] MEDS: carBAMazepine 200 MG TAB PO SCH ×2 (14:00→20:13)
[2021-02-09] MEDS: ONDANSETRON 4 MG/2 ML VIAL ONE ×2 (14:00→14:06)
[2021-02-09] MEDS ORDERED: MORPHINE 4 MG/ML SYR ONE (14:18)
[2021-02-09] MEDS ORDERED: ONDANSETRON 4 MG/2 ML VIAL ONE (14:18)
[2021-02-09] MEDS ORDERED: POTASSIUM CL SA 10 MEQ TAB PO ONE (17:00)
[2021-02-09] MEDS ORDERED: ENOXAPARIN 40 MG/0.4 ML SQ SCH (17:00)
[2021-02-09] MEDS: CODEINE 30MG/APAP 300MG TAB PO PRN ×2 (17:20→21:05)
[2021-02-09] MEDS ORDERED: MIRTAZAPINE 15 MG TAB PO SCH (21:00)
[2021-02-09] MEDS ORDERED: PREGABALIN 75 MG CAP PO SCH (21:00)
--- NOTE | 2021-02-09 23:14 | OP ---
Surgeon: William Gay MD Preoperative Diagnosis: Cat bite to the right index and middle finger. Postoperative Diagnosis: Cat bite to the right index and middle finger. Procedure Performed: Debridement of skin and subcutaneous tissue 1 cm x2 of the index, 0.5 cm of the middle, and 1 cm of the middle. Anesthesia: General. Procedure In Detail: After satisfactory induction of general anesthesia, arm was prepped with Betadi ne scrub, Betadine paint, dry sterile drapes were applied in usual manner. Arm was elevated, exsangu inated with an Esmarch, tourniquet was inflated to 250 mmHg. Hand was placed on Roto Lock table. El liptical incision was made over cat bites. The most severe one was in middle finger, left ulnar aspe ct proximally, and dissected down. The cultures were taken. No joe pus . The wound was jet lavage irrigated with 3 L of dilute Betadine solution. Tourniquet was released. Electrocautery was used for hemostasis. The largest wound was packed with Betadine-soaked quarter-inch Nu Gauze an d with a 2 inch Steve. The patient tolerated procedure well and returned to Recovery. FLORENCIA/HERNANDEZ Voice ID: [id number] Report ID: [id number]
[2021-02-10] MEDS: CODEINE 30MG/APAP 300MG TAB PO PRN ×3 (00:55→09:58)
[2021-02-10 01:05] VITALS: O2SAT 96
--- NOTE | 2021-02-10 04:57 | DS ---
The patient is a 75-year-old white male, right-hand dominant, was trying to supper a , was bitten over the right hand index and middle finger. He presented to the emergency room on day after bite, and was admitted. X-ray at that time showed no fractures or foreign bodies. He negron s history of hypertension, depression, and back surgery. On physical examination, he has redness to dorsal hand sutured index and dorsum of the mid dle. He has tenderness in the entry site. The plan will be incision and drainage. ANDRÉS Voice ID: [id number] Report ID: [id number]
[2021-02-10] MEDS: AMPICILLIN/SULBACT 1.5 GM in NA CHLORIDE 0.9% 100 ML IVPB SCH (05:06)
[2021-02-10 05:33] LABS: Absolute Lymphocytes (CBC) 2.2 K/uL (0.7-4.9); Basophils % 1.1 % (0-1.3); Hematocrit 41.8 % (39.6-49.0); Lymphocytes % 32.7 % (15.3-44.8); MPV 7.5 fL (7.6-11.3); RBC Red Blood Cell Count 4.58 M/uL (4.33-5.43)
[2021-02-10 05:52] LABS: Albumin 2.8 g/dL (3.4-5.0); Bilirubin Total 0.3 mg/dL (0.2-1.0); Magnesium 2.1 mg/dL (1.8-2.4); Protein, Total 6.9 g/dL (6.4-8.2)
--- NOTE | 2021-02-10 08:24 | P.DS ---
Admission Date: 02/08/21 Discharge Date: 02/10/21 Primary Care Provider: Dr. Aragon Disposition: ROUTINE DISCHARGE Discharge Condition: GOOD Reason for Admission: cat bite/cellulitis Consultations: Plastic Surgery-Dr. Gay Procedures: COVID: [Negative] Hand x-ray right hand: CLINICAL HISTORY: ANIMAL BITE COMPARISON: <Comparisons> FINDINGS: No acute fracture or dislocation is seen. Moderate multi joint arthritic changes are present. No radiopaque foreign body. Surgery: Date: 02/09/2021 Surgeon: William Gay MD Preoperative Diagnosis: Cat bite to the right index and middle finger. Postoperative Diagnosis: Cat bite to the right index and middle finger. Procedure Performed: Debridement of skin and subcutaneous tissue 1 cm x2 of the index, 0.5 cm of the middle, and 1 cm of the middle. Anesthesia: General. Medical Problem List: Cellulitis/lymphangitis of the right hand involving the 2nd 3rd and 4th phalanges secondary to cat bite status post debridement of the skin and subcutaneous tissue 1 cm x 2 cm of the middle finger, 0.5 cm of the index finger and another 1 cm of the index finger Hypertension Depression with anxiety Chronic pain BPH Brief History of Present Illness: 75-year-old male presented to the emergency room after he suffered a cat bite on 02/07/2021. Puncture wounds were noted to the right hand. Patient had increased swelling, erythema to the hand and joints. Patient was admitted for further evaluation. No evidence of foreign body noted on x-ray. Hospital Course: Patient presented with cellulitis and lymphangitis of the right hand involving the second, third, and fourth phalanges. This was related to a cat bite. Patient was admitted for further evaluation and treatment. Patient received IV antibiotic therapy. Plastic surgery was consulted to further evaluate. Surgical intervention was recommended. Patient had subsequent debridement of the skin and subcutaneous tissue 1 cm x 2 cm of the middle finger, 0.5 cm of the index finger and another 1 cm of the index finger. Patient tolerated procedure well. Blood cultures negative. Swelling, erythema has resolved. At discharge the patient will continue with current wound care. This will include normal saline wash with packing to the index middle finger. Education on wound care provided. Patient will continue with Augmentin 500 mg 1 pill twice daily for 7 days. Patient will follow up with plastic surgery in 1 week to follow-up hospitalization. Recommend follow-up with PCP in 1 week to follow-up hospitalization as well. Patient with hypertension. At discharge patient will continue with lisinopril 40 mg daily. Recommend to maintain blood pressure less than 130/80. Further adjustment can be done by his PCP. Patient with depression with anxiety. At discharge patient will continue with current medication including Tegretol 200 mg 3 times a day and Remeron 45 mg daily. Patient with chronic pain. At discharge patient will continue with Lyrica 75 mg 1 pill twice daily and Zanaflex 2 mg 1 pill twice daily as needed for muscle spasm Patient with BPH. At discharge patient will continue with Flomax 0.4 mg daily. Vital Signs/Physical Exam: Temp Pulse Resp BP Pulse Ox 97.7 F 87 16 131/72 95 02/10/21 04:00 02/10/21 04:00 02/10/21 06:08 02/10/21 04:00 02/10/21 06:08 General: Alert, In no apparent distress, Oriented x3, Cooperative HEENT: Atraumatic Neck: Supple Respiratory: Clear to auscultation bilaterally, Normal air movement Cardiovascular: Normal pulses, Regular rate/rhythm Gastrointestinal: Normal bowel sounds, No tenderness, No masses, No rebound, No guarding Integumentary: Other (Erythema to the right hand resolved. No significant swelling. Status post debridements of the right index and middle finger noted.) Neurological: Normal speech, Normal strength at 5/5 x4 extr, Normal tone, Normal affect Laboratory Data at Discharge: WBC 6.80 K/uL (4.3-10.9) D 02/10/21 05:16 Hgb 13.8 g/dL (13.6-17.9) 02/10/21 05:16 Hct 41.8 % (39.6-49.0) 02/10/21 05:16 Plt Count 330 K/uL (152-406) 02/10/21 05:16 Sodium 138 mmol/L (136-145) 02/10/21 05:16 Potassium 4.0 mmol/L (3.5-5.1) 02/10/21 05:16 BUN 12 mg/dL (7-18) 02/10/21 05:16 Creatinine 0.96 mg/dL (0.55-1.3) 02/10/21 05:16 Glucose 96 mg/dL (74-106) 02/10/21 05:16 Magnesium 2.1 mg/dL (1.8-2.4) 02/10/21 05:16 Total Bilirubin 0.3 mg/dL (0.2-1.0) 02/10/21 05:16 AST 15 U/L (15-37) 02/10/21 05:16 ALT 15 U/L (12-78) 02/10/21 05:16 Alkaline Phosphatase 53 U/L (45-117) 02/10/21 05:16 Home Medications: Mirtazapine [Remeron] 45 mg PO BEDTIME 02/09/21 Pregabalin [Lyrica*] 75 mg PO BID 02/09/21 Tamsulosin [Flomax*] 1 tab PO DAILY 02/09/21 Tizanidine [Zanaflex*] 2 mg PO BID 02/09/21 carBAMazepine [Tegretol] 1 tab PO TID 02/09/21 lisinopriL [Lisinopril] 40 mg PO DAILY 02/09/21 Amoxicillin/Potassium Clav [Augmentin 500-125 Tablet] 1 each PO BID #14 tablet 02/10/21 New Medications: Amoxicillin/Potassium Clav [Augmentin 500-125 Tablet] 1 each PO BID #14 tablet Physician Discharge Instructions: Patient presented with cellulitis and lymphangitis of the right hand involving the second, third, and fourth phalanges. This was related to a cat bite. Patient was admitted for further evaluation and treatment. Patient received IV antibiotic therapy. Plastic surgery was consulted to further evaluate. Surgical intervention was recommended. Patient had subsequent debridement of the skin and subcutaneous tissue 1 cm x 2 cm of the middle finger, 0.5 cm of the index finger and another 1 cm of the index finger. Patient tolerated procedure well. Blood cultures negative. Swelling, erythema has resolved. At discharge the patient will continue with current wound care. This will include normal saline wash with packing to the index middle finger. Education on wound care provided. Patient will continue with Augmentin 500 mg 1 pill twice daily for 7 days. Patient will follow up with plastic surgery in 1 week to follow-up hospitalization. Recommend follow-up with PCP in 1 week to follow-up hospitalization as well. Patient with hypertension. At discharge patient will continue with lisinopril 40 mg daily. Recommend to maintain blood pressure less than 130/80. Further adjustment can be done by his PCP. Patient with depression with anxiety. At discharge patient will continue with current medication including Tegretol 200 mg 3 times a day and Remeron 45 mg daily. Patient with chronic pain. At discharge patient will continue with Lyrica 75 mg 1 pill twice daily and Zanaflex 2 mg 1 pill twice daily as needed for muscle spasm Patient with BPH. At discharge patient will continue with Flomax 0.4 mg daily. Diet: AHA Activity: Ad rory Followup: Alba Aragon DO [Primary Care Provider] - Time spent managing pt's care (in minutes): 55
[2021-02-10 08:55] VITALS: BP 129/70; TEMP 97
[2021-02-10] MEDS ORDERED: lisinopriL 20 MG TAB PO SCH (09:00)
[2021-02-10] MEDS: carBAMazepine 200 MG TAB PO SCH (09:53)
== END 2021-02-10 11:00 | disposition home or self-care (01) | DRG 982 ==
LOC: ER 17:04 → ERHOLD 20:51 → 4TH 02-09 00:43
PROVIDERS: ADMIT Family Medicine; ATTEND Family Medicine
PROC: 0JDJ0ZZ Extraction of Right Hand Subcutaneous Tissue and Fascia, Open Approach (ICD-10-PCS; principal; 2021-02-09 13:15)
DX: L03.011 Cellulitis of right finger (principal); L03.113 Cellulitis of right upper limb; S61.250A Open bite of right index finger without damage to nail, initial encounter; S61.252A Open bite of right middle finger without damage to nail, initial encounter; S61.254A Open bite of right ring finger without damage to nail, initial encounter; I89.1 Lymphangitis; I10 Essential (primary) hypertension; F41.8 Other specified anxiety disorders; G89.29 Other chronic pain; N40.0 Benign prostatic hyperplasia without lower urinary tract symptoms; W55.01XA Bitten by cat, initial encounter; Y92.009 Unspecified place in unspecified non-institutional (private) residence as the place of occurrence of the external cause; Z20.822 Contact with and (suspected) exposure to COVID-19
CPT/HCPCS: 36415; 80053; 83735; 85025; 87040; 87070; 87075; 87205; 88304; 90471; 90714; 96365; 96375; 99285; J0295; J1100; J1650; J2270; J2405; J2704; J3010; J3480; J7030; J7050; J7120; U0003

== ENCOUNTER 2024-02-20 13:58 | Emergency (ER) | payer OTHER ==
[2024-02-20] MEDS ORDERED: ONDANSETRON 4 MG/2 ML VIAL ONE (14:51)
[2024-02-20] MEDS ORDERED: KETOROLAC 30 MG/ML INJ ONE (14:51)
[2024-02-20] MEDS ORDERED: FAMOTIDINE 20 MG/2 ML VIAL IV ONE (14:51)
[2024-02-20] MEDS ORDERED: NA CHLORIDE 0.9% 1,000 ML ONE (14:51)
[2024-02-20 15:21] LABS: Absolute Basophils 0.1 K/uL (0-0.5); Absolute Eosinophils 0.4 K/uL (0-0.5); Absolute Lymphocytes (CBC) 1.9 K/uL (0.7-4.9); Absolute Monocytes 0.7 K/uL (0.1-1.3); Absolute Neutrophil 6.2 K/uL (1.8-8.0); Basophils % 1.5 % (0-1.3); Hematocrit 48.3 % (39.6-49.0); Hemoglobin 15.7 g/dL (13.6-17.9); Lymphocytes % 20.4 % (15.3-44.8); MCH 30.8 pg (27.0-35.0); MCHC 32.5 g/dL (32.0-36.0); MCV 94.7 fL (80-100); MPV 7.7 fL (7.6-11.3); Monocytes % 7.2 % (3.3-12.3); Neutrophils % 66.9 % (41.7-73.7); Platelets 353 thou/uL (152-406); Red Cell Distribution Width 14.5 % (12.1-15.2)
[2024-02-20 15:24] LABS: Specific Gravity 1.014 (1.005-1.030); Sqamous Epithelial <5 /HPF (None Seen); Urine Bacteria None Seen /HPF (<20); Urine Bilirubin NEGATIVE (Negative); Urine Blood Negative (Negative); Urine Clarity Turbid (Clear); Urine Color Light-Yellow (Yellow); Urine Crystals Unidentified Few /HPF (None Seen); Urine Culture Reflex Order NOT NEEDED; Urine Glucose NEGATIVE (Negative); Urine Ketones NEGATIVE (Negative); Urine Microscopic Reflex YN ORDER UMIC; Urine Mucus Slight /HPF (None Seen); Urine Nitrite NEGATIVE (Negative); Urine Protein NEGATIVE (Negative); Urine RBC <5 /HPF (None Seen); Urine Urobilinogen Normal (Normal); Urine WBC <5 /HPF (<5)
[2024-02-20 15:36] LABS: Albumin 3.2 g/dL (3.4-5.0); Albumin/Globulin Ratio 0.7 (1.1-1.8); Anion Gap 4.4 mEq/L (5.0-15.0); Bilirubin Total 0.4 mg/dL (0.2-1.0); Globulin 4.3 g/dL (2.3-3.5); Potassium 4.4 mEq/L (3.5-5.1); Protein, Total 7.5 g/dL (6.4-8.2)
--- NOTE | 2024-02-20 16:08 | RAD REPORT ---
EXAM DESCRIPTION: CT - Abdomen Pelvis W Contrast - 02/20/2024 3:48 pm CLINICAL HISTORY: Abdominal pain COMPARISON: none. TECHNIQUE: Computed axial tomography of the abdomen pelvis was obtained. 100 cc Isovue-300 was admin istered intravenously. Oral contrast was not requested which limits evaluation of bowel and appendix All CT scans are performed using dose optimization technique as appropriate and may include automated exposure control or mA/KV adjustment according to patient size. FINDINGS: Areas of pulmonary fibrosis are present within the lung bases. Multiple, bilateral cysts within the kidneys. The largest contains a septation measuring 5.8 centimet ers. The spleen, pancreas and adrenals unremarkable 3.2 centimeter infrarenal abdominal aortic aneurysm contains moderate amount plaque. Postsurgical changes involve spine. No evidence diverticulitis IMPRESSION: 3.2 centimeter infrarenal abdominal aortic aneurysm. Followup imaging in 3 years recomme nded 5.8 centimeter complex right renal cyst probably benign. Follow-up ultrasound in 6 months recommended assess stability
--- NOTE | 2024-02-20 16:41 | RAD REPORT ---
EXAM DESCRIPTION: Khadijah Single View02/20/2024 4:12 pm CLINICAL HISTORY: Cough COMPARISON: 2019 FINDINGS: Progression in moderate bilateral interstitial lung opacities Heart is mildly enlarged IMPRESSION: Progression moderate bilateral interstitial lung opacities. I suspect most if not all of this represents pulmonary fibrosis
--- NOTE | 2024-02-20 17:04 | ER ---
Nurse's Notes [facility] Name: Frank Chung Age: 78 yrs Sex: Male : 1945 Arrival Date: 02/20/2024 Time: 13:58 Bed 26 Private MD: Diagnosis: Weakness;Diarrhea, unspecified;Renal Cysts;Abdominal aortic aneurysm, without rupture Presentation: 02/19 13:59 Chief complaint: Patient states: "Since December, I've had diarrhea, feeling nauseous, mb9 weak, and left side of my stomach gurgling.". Coronavirus screen: Vaccine status: Patient reports receiving the 2nd dose of the covid vaccine. Ebola Screen: No symptoms or risks identified at this time. Initial Sepsis Screen: Does the patient meet any 2 criteria? No. Patient's initial sepsis screen is negative. Does the patient have a suspected source of infection? No. Patient's initial sepsis screen is negative. Risk Assessment: Do you want to hurt yourself or someone else? Patient reports no desire to harm self or others. Onset of symptoms was February 20, 2024. 13:59 Method Of Arrival: Ambulatory mb9 13:59 Acuity: KEVIN 3 mb9 Triage Assessment: 14:01 General: Appears in no apparent distress. Behavior is cooperative, anxious. Pain: mb9 Complains of pain in abdomen Quality of pain is described as throbbing. EENT: No signs and/or symptoms were reported regarding the EENT system. Neuro: Yanes Agitation-Sedation Scale (RASS): 0 - Alert and Calm Level of Consciousness is awake, alert, obeys commands, Oriented to person, place, time, situation, Appropriate for age. Cardiovascular: Patient's skin is warm and dry. Respiratory: Airway is patent Respiratory effort is even, unlabored, Respiratory pattern is regular, symmetrical. GI: Abdomen is flat, non-distended, Reports nausea. : No signs and/or symptoms were reported regarding the genitourinary system. Derm: Skin is pink, warm \\T\\ dry. Musculoskeletal: Range of motion: intact in all extremities. Historical: - Allergies: 14:01 NKA; mb9 - Home Meds: 14:01 Tegretol 250 mg Oral tab every 8 hours [Active]; mb9 - PMHx: 14:01 Depression; Hypertension; mb9 - PSHx: 14:01 None; mb9 - Immunization history:: Adult Immunizations up to date. - Infectious Disease History:: Denies. - Social history:: Smoking status: Patient reports the use of cigarette tobacco products. Screenin:42 [facility] ED Fall Risk Assessment (Adult) History of falling in the last 3 months, as6 including since admission No falls in past 3 months (0 pts) Confusion or Disorientation No (0 pts) Intoxicated or Sedated No (0 pts) Impaired Gait No (0 pts) Mobility Assist Device Used No (0 pt) Altered Elimination No (0 pt) Score/Fall Risk Level 0 - 2 = Low Risk Oriented to surroundings, Maintained a safe environment, Educated pt \\T\\ family on fall prevention, incl call for assistance when getting out of bed, Assessed \\T\\ reinforced patient's understanding of fall precautions. Abuse screen: Denies threats or abuse. Denies injuries from another. Nutritional screening: No deficits noted. Tuberculosis screening: No symptoms or risk factors identified. Assessment: 15:52 Reassessment: No changes from previously documented assessment. Patient and/or family mb9 updated on plan of care and expected duration. Pain level reassessed. Patient is alert, oriented x 3, equal unlabored respirations, skin warm/dry/pink. 16:42 Reassessment: Patient appears in no apparent distress at this time. Patient and/or as6 family updated on plan of care and expected duration. Pain level reassessed. Patient is alert, oriented x 3, equal unlabored respirations, skin warm/dry/pink. Vital Signs: 13:59 BP 133 / 95; Pulse 81; Resp 18; Temp 97.9; Pulse Ox 100% on R/A; Weight 77.11 kg; mb9 Height 5 ft. 10 in. ; 16:41 BP 159 / 103; Pulse 74; Resp 18; Pulse Ox 99% ; as6 13:59 Body Mass Index 24.39 (77.11 kg, 177.8 cm) mb9 ED Course: 13:58 Patient arrived in ED. rg4 13:59 Tacos Deutsch MD is Attending Physician. ec2 14:00 Triage completed. mb9 14:01 Arm band placed on. mb9 15:05 CBC with Diff Sent. as6 15:05 CMP Sent. as6 15:05 Lipase Sent. as6 15:05 Urinalysis w/ reflexes Sent. as6 15:06 Inserted saline lock: 20 gauge in left antecubital area, using aseptic technique. Blood as6 collected. 15:49 CT Abd/Pelvis - IV Contrast Only In Process Unspecified. EDMS 16:14 CXR XRAY In Process Unspecified. EDMS 16:38 Marquise Burnett, RN is Primary Nurse. as6 16:41 Bed in low position. Call light in reach. Warm blanket given. as6 17:31 No provider procedures requiring assistance completed. IV discontinued, intact, ap3 bleeding controlled, No redness/swelling at site. Pressure dressing applied. 17:32 Provided Education on: Discharge instructions. ap3 Administered Medications: 15:06 Drug: NS 0.9% IV 1000 ml IV at 1 bolus Per protocol; 1000 mL bolus Route: IV; Rate: 1 as6 bolus; Site: left antecubital; 15:53 Follow up: Response: No adverse reaction; IV Status: Completed infusion mb9 15:06 Drug: Famotidine IVP 20 mg IVP once; dilute with 10 mL 0.9% NaCl; give over 2 minutes as6 Route: IVP; Site: left antecubital; 15:53 Follow up: Response: No adverse reaction mb9 15:06 Drug: TORadol - Ketorolac IVP 15 mg IVP once Route: IVP; Site: left antecubital; as6 15:53 Follow up: Response: No adverse reaction mb9 15:06 Drug: Ondansetron IVP 4 mg IVP once; over 2 minutes Route: IVP; Site: left antecubital; as6 15:53 Follow up: Response: No adverse reaction mb9 Medication: 16:42 VIS not applicable for this client. as6 Outcome: 17:03 Discharge ordered by . ec2 17:31 Discharged to home ambulatory, ap3 17:31 Condition: good 17:31 Discharge instructions given to patient, Instructed on discharge instructions, follow up and referral plans. medication usage, Demonstrated understanding of instructions, follow-up care, medications, Prescriptions given X 2, 17:32 Patient left the ED. ap3 Signatures: Dispatcher [employer] Dipika Cool rg4 Cynthia Garcia RN RN ap3 Marquise Burnett, RN RN as6 Mary Horvath RN RN mb9 DeutschTacos callejas, MD ec2
--- NOTE | 2024-02-20 17:05 | EDPHYS ---
Physician Documentation [facility] Name: Frank Chung Age: 78 yrs Sex: Male : 1945 Arrival Date: 02/20/2024 Time: 13:58 Bed 26 Private MD: ED Physician Tacos Deutsch HPI: 02/19 14:09 This 78 yrs old Male presents to ER via Ambulatory with complaints of ec2 Weakness, Diarrhea. 14:09 Patient arrives today for evaluation of 1.5 months of diarrhea. Patient reports that he ec2 has been experiencing these issues for 1-1/2 months, reports decreased p.o. intake, nausea, diarrhea as frequent as 3 times per day. Patient reports he has not been seen for this in this timeframe. Has not taken any medications.. Historical: - Allergies: 14:01 NKA; mb9 - Home Meds: 14:01 Tegretol 250 mg Oral tab every 8 hours [Active]; mb9 - PMHx: 14:01 Depression; Hypertension; mb9 - PSHx: 14:01 None; mb9 - Immunization history:: Adult Immunizations up to date. - Infectious Disease History:: Denies. - Social history:: Smoking status: Patient reports the use of cigarette tobacco products. ROS: 14:09 Constitutional: as per hpi ec2 Exam: 14:09 Constitutional: GEN: NAD Head: atraumatic Eyes: EOMI Ears: External ears are ec2 normal. CV: regular rate LUNGS: no respiratory distress ABD: non-distended, soft, not guarding, not rigid SKIN: no evidence of rashes MSK: no evidence of trauma NEURO: moves all extremities equally Vital Signs: 13:59 BP 133 / 95; Pulse 81; Resp 18; Temp 97.9; Pulse Ox 100% on R/A; Weight 77.11 kg; mb9 Height 5 ft. 10 in. ; 16:41 BP 159 / 103; Pulse 74; Resp 18; Pulse Ox 99% ; as6 13:59 Body Mass Index 24.39 (77.11 kg, 177.8 cm) mb9 MDM: 14:08 Patient medically screened. ec2 14:09 Data reviewed: vital signs. ED course: Patient arrives today for evaluation of nausea ec2 as well as decreased p.o. intake and diarrhea ongoing for 1.5 months. Examination remarkable for well-appearing nontoxic individual is otherwise in no acute distress with reassuring hemodynamics. Will obtain lab work, CT imaging and treat the patient's symptoms. Differential diagnosis includes intra-abdominal cancer, enteritis, dehydration, electrolyte disturbances. Patient expressed concern regarding finding an exact diagnosis of why he is having symptoms. I instructed him that given the duration of symptoms of greater than 1 month, we will try our best to look for acute pathology that we can correct. Patient was frustrated that I would not definitively tell him what is wrong today.. 16:07 ED course: CBC is reassuring without anemia, metabolic profile with appropriate ec2 electrolytes and renal function. Urine is noninfectious appearing, lipase within normal ranges. . 17:02 ED course: Shows chronic findings including renal cysts, infrarenal abdominal aortic ec2 aneurysm. Patient to follow-up outpatient for both of these conditions. Chest x-ray shows likely pulmonary fibrosis. Again patient to follow-up outpatient expectantly. Patient without any hypoxia, increased work of breathing. Will discharge home. Return precautions given. . 17:04 ED course: MDM: Differential diagnosis as documented above in ED course; All lab tests ec2 ordered and reviewed as documented above; Discuss inpatient hospitalization: Yes; . 17:11 ED course: MDM: Differential diagnosis as documented above in ED course; All lab tests ec2 ordered and reviewed as documented above; Discuss inpatient hospitalization: Yes; . 02/19 14:08 Order name: CBC with Diff; Complete Time: 16:07 ec2 02/19 14:08 Order name: CMP; Complete Time: 16:07 ec2 02/19 14:08 Order name: Lipase; Complete Time: 16:07 ec2 02/19 14:08 Order name: Urinalysis w/ reflexes; Complete Time: 16:07 ec2 02/19 14:08 Order name: CT Abd/Pelvis - IV Contrast Only; Complete Time: 17:01 ec2 02/19 15:07 Order name: CXR XRAY; Complete Time: 17:01 ec2 02/19 14:08 Order name: IV Saline Lock; Complete Time: 15:05 ec2 02/19 14:08 Order name: Labs collected and sent; Complete Time: 15:05 ec2 Administered Medications: 15:06 Drug: NS 0.9% IV 1000 ml IV at 1 bolus Per protocol; 1000 mL bolus Route: IV; Rate: 1 as6 bolus; Site: left antecubital; 15:53 Follow up: Response: No adverse reaction; IV Status: Completed infusion mb9 15:06 Drug: Famotidine IVP 20 mg IVP once; dilute with 10 mL 0.9% NaCl; give over 2 minutes as6 Route: IVP; Site: left antecubital; 15:53 Follow up: Response: No adverse reaction mb9 15:06 Drug: TORadol - Ketorolac IVP 15 mg IVP once Route: IVP; Site: left antecubital; as6 15:53 Follow up: Response: No adverse reaction mb9 15:06 Drug: Ondansetron IVP 4 mg IVP once; over 2 minutes Route: IVP; Site: left antecubital; as6 15:53 Follow up: Response: No adverse reaction mb9 Disposition Summary: 02/20/24 17:03 Discharge Ordered Notes: Location: Home ec2 Condition: Stable ec2 Diagnosis - Weakness ec2 - Diarrhea, unspecified ec2 - Renal Cysts ec2 - Abdominal aortic aneurysm, without rupture ec2 Followup: ec2 - With: Private Physician - When: - Reason: Re-evaluation by your physician Discharge Instructions: - Discharge Summary Sheet ec2 - Diarrhea, Adult ec2 Forms: - Medication Reconciliation Form ec2 - Antibiotic Education ec2 - Prescription Opioid Use ec2 - Patient Portal Instructions ec2 - Leadership Thank You Letter ec2 Prescriptions: - melatonin 12 mg Oral tablet - take 1 tablet ORAL route daily; 30 tablet; Refills: 0, Product Selection ec2 Permitted - Cipro 500 mg Oral Tablet - take 1 tablet ORAL route every 12 hours for 7 days; 14 tablet; Refills: 0, ec2 Product Selection Permitted Signatures: Dispatcher [employer] Marquise Owusu RN RN as6 Mary Horvath RN RN mb9 Tacos Deutsch MD MD ec2 Corrections: (The following items were deleted from the chart) 14:08 14:08 CBC+H.LAB.BRZ ordered. EDMS EDMS 14:08 14:08 COMPREHENSIVE METABOLIC PANEL+C.LAB.BRZ ordered. EDMS EDMS 14:08 14:08 LIPASE+C.LAB.BRZ ordered. EDMS EDMS 14:08 14:08 Urinalysis+U.LAB.BRZ ordered. EDMS EDMS 15:09 14:09 ED course: Patient arrives today for evaluation of nausea as well as decreased ec2 p.o. intake and diarrhea ongoing for 1.5 months. Examination remarkable for well-appearing nontoxic individual is otherwise in no acute distress with reassuring hemodynamics. Will obtain lab work, CT imaging and treat the patient's symptoms. Differential diagnosis includes intra-abdominal cancer, enteritis, dehydration, electrolyte disturbances.. ec2
[2024-02-20 18:46] VITALS: BP 159/103; TEMP 97.9; O2SAT 99
== END 2024-02-20 17:32 | disposition home or self-care (01) ==
LOC: ER 13:58
DX: R53.1 Weakness (principal); R19.7 Diarrhea, unspecified; N28.1 Cyst of kidney, acquired; I71.40 Abdominal aortic aneurysm, without rupture, unspecified
CPT/HCPCS: 96361; 85025; 81001; 36415; 83690; 80053; 74177; 71045; 96375; 96374; 99284; Q9967; J2405; J7030

== ENCOUNTER 2024-02-29 07:36 | Emergency (ER) | payer OTHER ==
--- NOTE | 2024-02-29 09:18 | RAD REPORT ---
EXAM DESCRIPTION: USExtrempineda Venous Uni Ltd02/29/2024 8:50 am CLINICAL HISTORY: left leg swelling COMPARISON: None FINDINGS: Left common femoral, superficial femoral, greater saphenous, popliteal and posterior tibi al veins are compressible and demonstrate augmentation. Doppler demonstrates good flow. Grayscale, color and spectral analysis performed on all vessels A 3.5 x 0.6 x 1.1 centimeter hypoechoic structure containing echoes is present within the left inner thigh. It contains echoes IMPRESSION: No evidence of deep venous thrombosis involving the left lower extremity. 3.5 centimeter hypoechoic structure containing echoes left inner thigh. This may represent a small ab scess, hematoma, infected lymph node or thrombus within a varicose vein
--- NOTE | 2024-02-29 09:19 | RAD REPORT ---
EXAM DESCRIPTION: US - Extremity Nonvascular Limited - 02/29/2024 8:54 am CLINICAL HISTORY: Leg mass and swelling FINDINGS: A 3.5 x 0.6 x 1.1 centimeter hypoechoic structure containing echoes is present within the left inner thigh. It contains echoes IMPRESSION: 3.5 centimeter hypoechoic structure containing echoes left inner thigh. This may represent a small ab scess, hematoma, infected lymph node or thrombus within a varicose vein
--- NOTE | 2024-02-29 09:41 | EDPHYS ---
Physician Documentation [facility] Name: Frank Chung Age: 78 yrs Sex: Male : 1945 Arrival Date: 02/29/2024 Time: 07:36 Bed 19 Private MD: ED Physician Luis Diaz HPI: 02/28 08:11 This 78 yrs old Male presents to ER via Ambulatory with complaints of Leg Pain. rn 08:11 The patient presents with pain, swelling. The complaints affect the medial aspect of rn left thigh. 08:11 Onset: The symptoms/episode began/occurred this morning. Modifying factors: The rn symptoms are alleviated by nothing. the symptoms are aggravated by nothing. Severity of symptoms: At their worst the symptoms were very mild, in the emergency department the symptoms are unchanged. The patient has not experienced similar symptoms in the past. Patient reports noticed small area of swelling to left inner thigh. Patient is concerned is a blood clot. No history of DVT or PE. Not on blood thinners. No trauma. No recent procedure to leg. No shortness of breath.. Historical: - Allergies: 08:01 NKA; aa5 - Home Meds: 08:01 lisinopril 40 mg Oral tab 1 tab once daily [Active]; aa5 - PMHx: 08:01 Depression; Hypertension; aa5 - Immunization history:: Adult Immunizations unknown. - Infectious Disease History:: Denies. - Social history:: Smoking status: Patient reports the use of cigarette tobacco products, smokes one-half pack cigarettes per day. - Family history:: not pertinent. - Hospitalizations: : No recent hospitalization is reported. ROS: 08:11 Constitutional: Negative for fever, chills, and weight loss, Cardiovascular: Negative rn for chest pain, palpitations, and edema, Respiratory: Negative for shortness of breath, cough, wheezing, and pleuritic chest pain, MS/Extremity: Positive for area of swelling to left inner thigh Exam: 08:11 Constitutional: This is a well developed, well nourished patient who is awake, alert, rn and in no acute distress. MS/ Extremity: Pulses equal, no cyanosis. Neurovascular intact. Full, normal range of motion. Equal circumference. Left inner thigh with 2 cm tubular mass/swelling that is mobile and firm. No surrounding erythema or warmth. No tenderness along deep venous system. Vital Signs: 07:41 BP 146 / 92; Pulse 89; Resp 18 S; Temp 97.9(O); Pulse Ox 96% on R/A; Weight 68.04 kg aa5 (R); Height 5 ft. 10 in. (R); 08:00 BP 121 / 89; Pulse 88; Resp 18 S; Pulse Ox 95% on R/A; aa5 09:30 BP 140 / 93; Pulse 82; Resp 16 S; Pulse Ox 98% on R/A; aa5 07:41 Body Mass Index 21.52 (68.04 kg, 177.8 cm) aa5 MDM: 09:39 Differential diagnosis: Superficial thrombophlebitis, nodule, lymph node. Data rn reviewed: vital signs, nurses notes, radiologic studies, doppler, and as a result, I will discharge patient. Counseling: I had a detailed discussion with the patient and/or guardian regarding the historical points, exam findings, and any diagnostic results supporting the discharge/admit diagnosis, radiology results, the need for outpatient follow up, to return to the emergency department if symptoms worsen or persist or if there are any questions or concerns that arise at home. Special discussion: I discussed with the patient/guardian in detail that at this point there is no indication for admission to the hospital. It is understood, however, that if the symptoms persist or worsen the patient needs to return immediately for re-evaluation. 09:39 ED course: Ultrasound left leg shows possible thrombophlebitis versus nodule versus rn infected lymph node. Will discharge home with antibiotics and return precautions. Will apply heat and use anti-inflammatories [id number] and follow-up with PCP. I have personally reviewed all of the results, including but not limited to imaging deemed necessary to safely discharge this patient at this time. All results given to and printed out for patient. I personally went over all the results with the patient and answered all questions. Patient will follow-up with PCP and or specialist as discussed. Return precautions given and understood.. 02/28 07:49 Order name: Extremity Venous Uni Ltd US; Complete Time: 09:26 rn 02/28 07:50 Order name: US Extrmty Nonvasular Limited; Complete Time: 09:26 rn Administered Medications: No medications were administered Disposition Summary: 02/29/24 09:41 Discharge Ordered Notes: Location: Home rn Problem: new rn Symptoms: are unchanged rn Condition: Stable rn Diagnosis - Phlebitis and thrombophlebitis of superficial vessels of left lower extremity rn Followup: rn - With: Private Physician - When: As needed - Reason: Recheck today's complaints, Re-evaluation by your physician Discharge Instructions: - Discharge Summary Sheet rn - Thrombophlebitis rn Forms: - Medication Reconciliation Form rn - Antibiotic returns processor - Prescription Opioid Use rn - Patient Portal Instructions rn - Leadership Thank You Letter rn Prescriptions: - lisinopril 40 mg Oral tablet - take 1 tablet ORAL route daily; 60 tablet; Refills: 0, Product Selection rn Permitted - tamsulosin 0.4 mg Oral capsule - take 1 capsule ORAL route every 24 hours; 60 capsule; Refills: 0, Product rn Selection Permitted - Cephalexin 500 mg Oral Capsule - take 1 capsule ORAL route every 12 hours for 10 days; 20 capsule; Refills: 0, rn Product Selection Permitted Signatures: Dispatcher [employer] EDLuis Carrillo MD MD rn Calderon, Audri RN RN aa5 Corrections: (The following items were deleted from the chart) 07:39 07:39 Patient medically screened. rn rn 07:51 07:51 Extrmty Nonvasular Limited+US.RAD.BRZ ordered. EDMS EDMS
--- NOTE | 2024-02-29 09:41 | ER ---
Nurse's Notes [facility] Name: Frank Chung Age: 78 yrs Sex: Male : 1945 Arrival Date: 02/29/2024 Time: 07:36 Bed 19 Private MD: Diagnosis: Phlebitis and thrombophlebitis of superficial vessels of left lower extremity Presentation: 02/28 07:41 Chief complaint: Patient states: noticed knot to left thigh this morning, pt reports aa5 some numbness radiating down left leg. 07:41 Coronavirus screen: At this time, the client does not indicate any symptoms associated aa5 with coronavirus-19. Ebola Screen: Patient denies travel to an Ebola-affected area in the 21 days before illness onset. Initial Sepsis Screen: Does the patient meet any 2 criteria? No. Patient's initial sepsis screen is negative. Does the patient have a suspected source of infection? No. Patient's initial sepsis screen is negative. Risk Assessment: Do you want to hurt yourself or someone else? Patient reports no desire to harm self or others. Onset of symptoms was February 29, 2024. 07:41 Acuity: KEVIN 4 aa5 07:41 Method Of Arrival: Ambulatory aa5 Historical: - Allergies: 08:01 NKA; aa5 - Home Meds: 08:01 lisinopril 40 mg Oral tab 1 tab once daily [Active]; aa5 - PMHx: 08:01 Depression; Hypertension; aa5 - Immunization history:: Adult Immunizations unknown. - Infectious Disease History:: Denies. - Social history:: Smoking status: Patient reports the use of cigarette tobacco products, smokes one-half pack cigarettes per day. - Family history:: not pertinent. - Hospitalizations: : No recent hospitalization is reported. Screenin:41 [facility] ED Fall Risk Assessment (Adult) History of falling in the last 3 months, aa5 including since admission No falls in past 3 months (0 pts) Confusion or Disorientation No (0 pts) Intoxicated or Sedated No (0 pts) Impaired Gait No (0 pts) Mobility Assist Device Used No (0 pt) Altered Elimination No (0 pt) Score/Fall Risk Level 0 - 2 = Low Risk Oriented to surroundings, Maintained a safe environment, Educated pt \T\ family on fall prevention, incl call for assistance when getting out of bed. Abuse screen: Denies threats or abuse. Nutritional screening: No deficits noted. Tuberculosis screening: No symptoms or risk factors identified. Assessment: 07:41 General: Appears comfortable, Behavior is calm, cooperative. Pain: Denies pain. Neuro: aa5 Level of Consciousness is awake, alert, obeys commands, Oriented to person, place, time, situation. Cardiovascular: Patient's skin is warm and dry. Respiratory: Airway is patent Respiratory effort is even, unlabored, Respiratory pattern is regular, symmetrical. GI: No signs and/or symptoms were reported involving the gastrointestinal system. : No signs and/or symptoms were reported regarding the genitourinary system. EENT: No signs and/or symptoms were reported regarding the EENT system. Derm: Skin is pink, warm \T\ dry. Raised area that is approximately quater-sized noted to left thigh. Musculoskeletal: Range of motion: intact in all extremities. 08:06 Reassessment: Awaiting US . aa5 08:25 Reassessment: Patient is alert, oriented x 3, equal unlabored respirations, skin aa5 warm/dry/pink. Pt to US. 09:55 Reassessment: Patient is alert, oriented x 3, equal unlabored respirations, skin aa5 warm/dry/pink. Vital Signs: 07:41 BP 146 / 92; Pulse 89; Resp 18 S; Temp 97.9(O); Pulse Ox 96% on R/A; Weight 68.04 kg aa5 (R); Height 5 ft. 10 in. (R); 08:00 BP 121 / 89; Pulse 88; Resp 18 S; Pulse Ox 95% on R/A; aa5 09:30 BP 140 / 93; Pulse 82; Resp 16 S; Pulse Ox 98% on R/A; aa5 07:41 Body Mass Index 21.52 (68.04 kg, 177.8 cm) aa5 ED Course: 07:39 Patient arrived in ED. mg5 07:39 Luis Diaz MD is Attending Physician. rn 07:41 Arm band placed on Patient placed in an exam room, on a stretcher. aa5 07:41 Patient has correct armband on for positive identification. Bed in low position. Call aa5 light in reach. Side rails up X 1. Pulse ox on. NIBP on. 08:04 Triage completed. aa5 08:04 Lauren Hillman, RN is Primary Nurse. aa5 08:52 Extremity Venous Uni Ltd US In Process Unspecified. EDMS 08:56 US Extrmty Nonvasular Limited In Process Unspecified. EDMS 09:55 No provider procedures requiring assistance completed. Patient did not have IV access aa5 during this emergency room visit. Administered Medications: No medications were administered Medication: 09:55 VIS not applicable for this client. aa5 Outcome: 09:41 Discharge ordered by . rn 09:55 Discharged to home ambulatory, aa5 09:55 Condition: stable 09:55 Discharge instructions given to patient, Instructed on discharge instructions, follow up and referral plans. medication usage, Demonstrated understanding of instructions, follow-up care, medications, Prescriptions given X 1, 09:58 Patient left the ED. aa5 Signatures: Dispatcher [employer] Luis Winston MD MD rn Calderon, Audri, RN RN aa5 Tessy Quinones 5
[2024-02-29 10:18] VITALS: BP 146/92; TEMP 97.9; O2SAT 96
== END 2024-02-29 09:58 | disposition home or self-care (01) ==
LOC: ER 07:36
DX: I80.02 Phlebitis and thrombophlebitis of superficial vessels of left lower extremity (principal)
CPT/HCPCS: 76882; 93971; 99283

== ENCOUNTER 2024-05-06 04:29 | Emergency (ER) | payer OTHER ==
[2024-05-06] MEDS ORDERED: ONDANSETRON 4 MG/2 ML VIAL ONE (05:09)
[2024-05-06] MEDS ORDERED: PANTOPRAZOLE 40 MG INJ ONE ×2 (05:10→05:11)
[2024-05-06] MEDS ORDERED: NA CHLORIDE 0.9% 250 ML ONE (05:11)
[2024-05-06 05:12] LABS: Absolute Basophils 0.2 K/uL (0-0.5); Absolute Eosinophils 0.2 K/uL (0-0.5); Absolute Lymphocytes (CBC) 2.1 K/uL (0.7-4.9); Absolute Monocytes 0.8 K/uL (0.1-1.3); Absolute Neutrophil 9.8 K/uL (1.8-8.0); Basophils % 1.2 % (0-1.3); Eosinophils % 1.2 % (0-4.4); Hemoglobin 15.9 g/dL (13.6-17.9); Lymphocytes % 16.4 % (15.3-44.8); MCH 30.4 pg (27.0-35.0); MCHC 32.4 g/dL (32.0-36.0); MCV 93.8 fL (80-100); MPV 7.8 fL (7.6-11.3); Monocytes % 5.8 % (3.3-12.3); Neutrophils % 75.4 % (41.7-73.7); PT Prothrombin Time 11.6 SECONDS (9.4-12.5); PTT, Activated Partial Thromb 33.1 SECONDS (24.3-36.9); Platelets 367 thou/uL (152-406); Protime INR 1.04; RBC Red Blood Cell Count 5.23 M/uL (4.33-5.43); Red Cell Distribution Width 13.9 % (12.1-15.2)
[2024-05-06 05:20] LABS: Albumin 3.3 g/dL (3.4-5.0); Albumin/Globulin Ratio 0.7 (1.1-1.8); Anion Gap 10.1 mEq/L (5.0-15.0); Bilirubin Total 0.3 mg/dL (0.2-1.0); Globulin 4.7 g/dL (2.3-3.5); Potassium 4.1 mEq/L (3.5-5.1)
--- NOTE | 2024-05-06 06:15 | RAD REPORT ---
EXAM DESCRIPTION: CTAbdomen Pelvis W Contrast - 05/06/2024 5:55 am CLINICAL HISTORY: rectal bleeding COMPARISON: Abdomen Pelvis W Contrast dated 02/20/2024 TECHNIQUE: CT of the abdomen and pelvis was performed with IV contrast. All CT scans are performed using dose optimization technique as appropriate and may include automated exposure control or mA/KV adjustment according to patient size. FINDINGS: Lower chest: Emphysema. Coronary artery calcifications . Liver: No acute abnormality or suspicious lesions. Biliary: No biliary ductal dilatation. Stomach: No significant focal abnormality. Duodenum: No significant focal abnormality. Pancreas: No significant abnormality. Spleen: No significant abnormality. Adrenal: No suspicious lesions. Kidney/ureter: No hydronephrosis. No renal calculi. Too small to characterize and/or benign appearing renal lesions are noted. Retroperitoneum: No retroperitoneal adenopathy. Vascular: Infrarenal abdominal aortic aneurysm measuring 3.2 Cm. Follow-up in 3 years is recommended. Bowel: Colitis extending from the splenic flexure through the rectum.. Peritoneum: No ascites or free air. Bladder: Grossly unremarkable. Reproductive: No adnexal masses. Bones: No acute fracture. Multilevel degenerative changes are present in the spine. Fusion hardware a t L5-S1. Other: n/a IMPRESSION: Colitis extending from the splenic flexure through the rectum. Ischemia in addition to i nfectious and inflammatory etiologies is within the differential.
--- NOTE | 2024-05-06 06:16 | RAD REPORT ---
EXAM DESCRIPTION: CT - Head Brain Wo Cont - 05/06/2024 5:53 am CLINICAL HISTORY: HEADACHE COMPARISON: Head Brain Wo Cont dated 05/07/2019 TECHNIQUE: All CT scans are performed using dose optimization technique as appropriate and may inclu de automated exposure control or mA/KV adjustment according to patient size. FINDINGS: No intracranial hemorrhage, hydrocephalus or extra-axial fluid collection.No areas of brai n edema or evidence of midline shift. Cerebral atrophy. Mild chronic small vessel ischemic changes. The paranasal sinuses and mastoids are clear. The calvarium is intact. IMPRESSION: No acute intracranial abnormality.
[2024-05-06] MEDS ORDERED: NA CHLORIDE 0.9% 100 ML ONE (06:27)
[2024-05-06] MEDS ORDERED: PIPERACIL/TAZO 3.375 GM VIAL IV ONE (06:27)
--- NOTE | 2024-05-06 06:31 | EDPHYS ---
Physician Documentation [facility] Name: Frank Chung Age: 78 yrs Sex: Male : 1945 Arrival Date: 05/06/2024 Time: 04:29 Bed 14 Private MD: ED Physician Luis Diaz HPI: 05/06 04:44 This 78 yrs old Male presents to ER via Wheelchair with complaints of Cough, rn Shortness Of Breath, Rectal Bleeding, Dizziness, Headache, Worst Ever. 04:44 78-year-old male with past medical history of hypertension, AAA, COPD presents to the rn emergency department complaining of rectal bleeding and headache. Patient states he was shopping at [email or web address] yesterday around 5 PM when he developed a crampy lower abdominal pain and felt the urge to defecate so he went home and noticed blood on the toilet paper after the first bowel movement. Patient states he had multiple additional bowel movements and noticed dark red blood in the toilet bowl along with a mass sensation around his anus that took a few minutes to resolve after each bowel movement. Patient also states he is experiencing a frontal temporal splitting headache rated 10 out of 10 pain. He reports that he has had occasional bloody stools in the past believed to be secondary to hard stools but states he has never had this much blood which prompted him to come to the emergency department. Patient additionally states that he has never been screened for colon cancer. Denies fever, nausea, vomiting, chest pain, or loss of consciousness.. Historical: - Allergies: 04:42 NKA; cp4 - PMHx: 04:42 Depression; Hypertension; Chronic obstructive lung disease; cp4 - Immunization history:: Adult Immunizations up to date. - Infectious Disease History:: Denies. - Social history:: Smoking status: Patient denies any tobacco usage or history of. ROS: 04:54 Constitutional: Negative for fever, chills, and weight loss, Cardiovascular: Negative rn for chest pain, palpitations, and edema, : Negative for injury, bleeding, discharge, and swelling, 04:54 Respiratory: Positive for cough, wheezing, Negative for hemoptysis, orthopnea, shortness of breath, 04:54 Back: Negative for radiated pain, 04:54 Neuro: Positive for dizziness, headache, 04:54 All other systems are negative, Exam: 04:56 Constitutional: The patient appears alert, awake, anxious, rn 04:56 Cardiovascular: 04:56 Respiratory: the patient does not display signs of respiratory distress, Respirations: no acute changes, Breath sounds: 04:56 Abdomen/GI: Palpation: moderate abdominal tenderness, in the right lower quadrant and left lower quadrant, 04:56 Musculoskeletal/extremity: 04:56 Neuro: Exam negative for acute changes, focal neuro deficits, altered mental status, 06:49 ECG was reviewed by the Attending Physician. rn Vital Signs: 04:39 BP 128 / 89; Pulse 87; Resp 18; Temp 97.7; Pulse Ox 99% ; Weight 67.13 kg; Height 5 ft. cp4 8 in. ; Pain 10/10; 05:05 BP 128 / 89; Pulse 88; Resp 19; Temp 97.8; Pulse Ox 98% on R/A; Pain 9/10; rg5 06:10 BP 146 / 86; Pulse 89; Resp 19; Pulse Ox 98% on R/A; rg5 07:01 BP 125 / 88; Pulse 84; Resp 17; Pulse Ox 98% on R/A; rs5 08:36 BP 127 / 84; Pulse 85; Resp 18; Pulse Ox 97% on R/A; rs5 04:39 Body Mass Index 22.50 (67.13 kg, 172.72 cm) cp4 04:39 Pain Scale: Adult cp4 05:05 Pain Scale: Adult rg5 Jefferson Coma Score: 05:04 Eye Response: spontaneous(4). Motor Response: obeys commands(6). Verbal Response: rg5 oriented(5). Total: 15. MDM: 04:31 Patient medically screened. rn 06:28 Differential Diagnosis: Viral Syndrome Other Colitis, diverticulitis, ischemic colitis, rn viral syndrome. Data reviewed: vital signs, nurses notes, lab test result(s), radiologic studies, CT scan, and as a result, I will admit patient. Consideration of Admission/Observation Patient was admitted/placed on observation. Escalation of care including admission/observation considered. Care significantly affected by the following chronic conditions: Hypertension. Counseling: I had a detailed discussion with the patient and/or guardian regarding the historical points, exam findings, and any diagnostic results supporting the discharge/admit diagnosis, lab results, radiology results, the need to transfer to another facility, for higher level of care, [facility] does not immediately have the required specialist. ED course: CT shows moderate colitis from the splenic flexure to the rectum, raising the possibility of ischemic colitis in this 78-year-old male with known vascular problems. Lactic acid normal. Patient and sinus rhythm. Will initiate transfer given we do not have GI or interventional radiology available if needed. [facility] did not have open beds earlier today so we will try [facility] system.. 06:53 ED course: [facility] system cannot accommodate. Will try back with [facility] system to see if rn bed has opened up.. 05/06 04:48 Order name: CBC with Diff; Complete Time: 06:10 rn 05/06 04:48 Order name: CMP; Complete Time: 06:10 rn 05/06 04:48 Order name: Protime (+inr); Complete Time: 06:10 rn 05/06 04:48 Order name: Ptt, Activated; Complete Time: 06:10 rn 05/06 04:48 Order name: Lactate w/ 2H reflex if indic.; Complete Time: 06:10 rn 05/06 04:48 Order name: CT Abd/Pelvis - IV Contrast Only; Complete Time: 06:18 rn 05/06 04:56 Order name: CT Head Brain wo Cont; Complete Time: 06:18 rn 05/06 06:37 Order name: EKG; Complete Time: 06:38 rn 05/06 04:48 Order name: IV Saline Lock; Complete Time: 04:51 rn 05/06 04:48 Order name: Labs collected and sent; Complete Time: 05:06 rn 05/06 06:11 Order name: Misc. Order: Recollect type and screen; Complete Time: 06:25 jb4 05/06 06:37 Order name: EKG - Nurse/Tech; Complete Time: 06:49 rn EC:49 Rate is 82 beats/min. Rhythm is regular. QRS [place] is Normal. [place] interval is normal. QRS rn interval is normal. QT interval is normal. No Q waves. No ST changes noted. Clinical impression: NSR w/ Non-specific ST/T Changes. Interpreted by me. Reviewed by me. Administered Medications: 05:21 Drug: Ondansetron IVP 4 mg IVP once; over 2 minutes Route: IVP; Site: right antecubital;rg5 05:43 Follow up: Response: No adverse reaction rg5 05:21 Drug: Pantoprazole IVP 40 mg IVP once Route: IVP; Site: right antecubital; rg5 05:43 Follow up: Response: No adverse reaction rg5 05:21 Drug: Pantoprazole IV 8 mg/hr IV at 25 ml/hr continuous; (Standard dilution is 80 mg in rg5 250 mL NS) Route: IV; Rate: 25 ml/hr; Site: right antecubital; 05:40 Follow up: Response: No adverse reaction rs5 08:37 Follow up: IV Status: Infusion continued upon transfer rs5 06:29 Drug: Piperacillin-Tazobactam IVPB 3.375 grams IVPB once over 60 mins; (mix in NS 100 rg5 mL) Route: IVPB; Infused Over: 60 mins; Site: left antecubital; 07:00 Follow up: Response: No adverse reaction rs5 07:35 Follow up: IV Status: Completed infusion rs5 07:15 Drug: morphine IVP or IV 4 mg IVP once over 4 mins Route: IVP; Infused Over: 4 mins; rs5 Site: right antecubital; 08:01 Follow up: Response: No adverse reaction; Pain is decreased rs5 Disposition Summary: 05/06/24 06:31 Transfer Ordered Notes: Reason: Higher level of care rn Condition: Stable rn Problem: new rn 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(05/06/24 07:20) rn Accepting Physician: Dr. Ryan(05/06/24 08:38) rs5 Diagnosis - GI Bleed/ Gastrointestinal hemorrhage, unspecified rn - Ischemic colitis rn Forms: - Medication Reconciliation Form rn - SBAR form rn Signatures: Dispatcher [employer] EDMS Luis Diaz MD MD rn Bryson, James RN RN jb4 Bernard Pritchett RN RN rs5 Taylor Sherwood cp4 Pramod Sauceda RN RN rg5 Corrections: (The following items were deleted from the chart) 07:20 07:17 ED course: Dr. ryan. judith rn 07:20 06:31 Dr. wong rn 07:20 06:31 [facility] rn rn 07:20 07:20 Dr. Ryan rn rn 08:38 07:20 Dr. Ryan rn rs5
--- NOTE | 2024-05-06 06:31 | ER ---
Nurse's Notes [facility] Name: Frank Chung Age: 78 yrs Sex: Male : 1945 Arrival Date: 05/06/2024 Time: 04:29 Bed 14 Private MD: Diagnosis: GI Bleed/ Gastrointestinal hemorrhage, unspecified;Ischemic colitis Presentation: 05/06 04:39 Chief complaint: Patient states: rectal bleeding and headache. Coronavirus screen: cp4 Client denies travel out of the [place] in the last 14 days. At this time, the client does not indicate any symptoms associated with coronavirus-19. Ebola Screen: Patient negative for fever greater than or equal to 101.5 degrees Fahrenheit, and additional compatible Ebola Virus Disease symptoms Patient denies exposure to infectious person. Patient denies travel to an Ebola-affected area in the 21 days before illness onset. No symptoms or risks identified at this time. Initial Sepsis Screen: Does the patient meet any 2 criteria? No. Patient's initial sepsis screen is negative. Does the patient have a suspected source of infection? No. Patient's initial sepsis screen is negative. Risk Assessment: Do you want to hurt yourself or someone else? Patient reports no desire to harm self or others. Onset of symptoms was May 05, 2024. 04:39 Method Of Arrival: Wheelchair cp4 04:39 Acuity: KEVIN 3 cp4 Triage Assessment: 04:41 Respiratory: the patient has mild shortness of breath. rg5 04:42 General: Appears distressed, uncomfortable, Behavior is calm, cooperative, appropriate cp4 for age. Historical: - Allergies: 04:42 NKA; cp4 - PMHx: 04:42 Depression; Hypertension; Chronic obstructive lung disease; cp4 - Immunization history:: Adult Immunizations up to date. - Infectious Disease History:: Denies. - Social history:: Smoking status: Patient denies any tobacco usage or history of. Screenin:56 [facility] ED Fall Risk Assessment (Adult) History of falling in the last 3 months, rg5 including since admission No falls in past 3 months (0 pts) Confusion or Disorientation No (0 pts) Intoxicated or Sedated No (0 pts) Impaired Gait No (0 pts) Mobility Assist Device Used No (0 pt) Altered Elimination No (0 pt) Score/Fall Risk Level 0 - 2 = Low Risk Oriented to surroundings, Maintained a safe environment, Educated pt \T\ family on fall prevention, incl call for assistance when getting out of bed, Hourly rounding (assess needs \T\ fall precautionary measures) done. Abuse screen: Denies threats or abuse. Nutritional screening: No deficits noted. Tuberculosis screening: No symptoms or risk factors identified. Assessment: 04:54 General: Appears uncomfortable, Behavior is calm, cooperative, appropriate for age. rg5 Pain: Complains of pain in head Pain currently is 8 out of 10 on a pain scale. Quality of pain is described as aching, Pain began 1 day ago. 04:56 Pain: Complains of pain in right lower quadrant and left lower quadrant Pain currently rg5 is 9 out of 10 on a pain scale. Quality of pain is described as crampy, Pain began 1 day ago. Neuro: Level of Consciousness is awake, alert, obeys commands, Oriented to person, place, time. Cardiovascular: Denies chest pain, Capillary refill < 3 seconds Patient's skin is warm and dry. Cardiovascular: Rhythm is regular. Respiratory: Reports cough that is productive, Airway is patent Trachea midline Respiratory effort is even, unlabored, Respiratory pattern is regular, symmetrical, Breath sounds with wheezes. GI: Abdomen is round Reports diarrhea, bloody stool, Pain is 9 out of 10 on a pain scale. : No signs and/or symptoms were reported regarding the genitourinary system. EENT: No deficits noted. Derm: Skin is intact, Skin is dry, Skin is normal, Skin temperature is warm. Musculoskeletal: Range of motion: intact in all extremities. 05:30 Reassessment: Patient and/or family updated on plan of care and expected duration. Pain rg5 level reassessed. Patient is alert, oriented x 3, equal unlabored respirations, skin warm/dry/pink. 06:11 Reassessment: No changes from previously documented assessment. Patient and/or family rg5 updated on plan of care and expected duration. Pain level reassessed. 07:00 Reassessment: provider notified pt is experiencing pain. Pain: Complains of pain in rs5 abdomen Pain currently is 8 out of 10 on a pain scale. Quality of pain is described as aching, Is continuous. 08:01 Reassessment: Patient and/or family updated on plan of care and expected duration. Pain rs5 level reassessed. Patient is alert, oriented x 3, equal unlabored respirations, skin warm/dry/pink. Patient states feeling better. successful attempt to call report called to nurse from [facility]. 08:35 Reassessment: report given to EMS at bedside. rs5 Vital Signs: 04:39 BP 128 / 89; Pulse 87; Resp 18; Temp 97.7; Pulse Ox 99% ; Weight 67.13 kg; Height 5 ft. cp4 8 in. ; Pain 10/10; 05:05 BP 128 / 89; Pulse 88; Resp 19; Temp 97.8; Pulse Ox 98% on R/A; Pain 9/10; rg5 06:10 BP 146 / 86; Pulse 89; Resp 19; Pulse Ox 98% on R/A; rg5 07:01 BP 125 / 88; Pulse 84; Resp 17; Pulse Ox 98% on R/A; rs5 08:36 BP 127 / 84; Pulse 85; Resp 18; Pulse Ox 97% on R/A; rs5 04:39 Body Mass Index 22.50 (67.13 kg, 172.72 cm) cp4 04:39 Pain Scale: Adult cp4 05:05 Pain Scale: Adult rg5 Jake Coma Score: 05:04 Eye Response: spontaneous(4). Motor Response: obeys commands(6). Verbal Response: rg5 oriented(5). Total: 15. ED Course: 04:31 Patient arrived in ED. [id number] 04:31 Luis Diaz MD is Attending Physician. rn 04:33 Pramod Sauceda RN is Primary Nurse. rg5 04:42 Triage completed. cp4 04:42 Arm band placed on right wrist. Patient placed in waiting room. cp4 04:56 Placed in gown. Bed in low position. Call light in reach. Side rails up X2. Cardiac rg5 monitor on. Pulse ox on. NIBP on. Door closed. Noise minimized. Warm blanket given. 04:56 No provider procedures requiring assistance completed. Inserted saline lock: 20 gauge rg5 in right antecubital area, using aseptic technique. Blood collected. Flushed with 10 mL NS. 05:06 CT Head Brain wo Cont Sent. rg5 05:44 Inserted saline lock: 20 gauge in left antecubital area, using aseptic technique. Blood rg5 collected. Flushed with 10 mL NS. 05:54 CT Head Brain wo Cont In Process Unspecified. EDMS 05:56 CT Abd/Pelvis - IV Contrast Only In Process Unspecified. EDMS 05:57 Awaiting lab results. rg5 06:29 initiated transfer to [facility] spoke with marlene. vk 06:53 [facility] declined transfer per Marlene due to no GI mgmt consultant. vk 06:56 Initiated transfer with [facility] spoke with carlton. vk 07:28 pt accepted in transfer to [facility] rm [id number] Dasilva admin approval given by amirah Andres. 08:36 Patient transferred, IV remains in place. rs5 Administered Medications: 05:21 Drug: Ondansetron IVP 4 mg IVP once; over 2 minutes Route: IVP; Site: right antecubital;rg5 05:43 Follow up: Response: No adverse reaction rg5 05:21 Drug: Pantoprazole IVP 40 mg IVP once Route: IVP; Site: right antecubital; rg5 05:43 Follow up: Response: No adverse reaction rg5 05:21 Drug: Pantoprazole IV 8 mg/hr IV at 25 ml/hr continuous; (Standard dilution is 80 mg in rg5 250 mL NS) Route: IV; Rate: 25 ml/hr; Site: right antecubital; 05:40 Follow up: Response: No adverse reaction rs5 08:37 Follow up: IV Status: Infusion continued upon transfer rs5 06:29 Drug: Piperacillin-Tazobactam IVPB 3.375 grams IVPB once over 60 mins; (mix in NS 100 rg5 mL) Route: IVPB; Infused Over: 60 mins; Site: left antecubital; 07:00 Follow up: Response: No adverse reaction rs5 07:35 Follow up: IV Status: Completed infusion rs5 07:15 Drug: morphine IVP or IV 4 mg IVP once over 4 mins Route: IVP; Infused Over: 4 mins; rs5 Site: right antecubital; 08:01 Follow up: Response: No adverse reaction; Pain is decreased rs5 Medication: 04:56 VIS not applicable for this client. rg5 Outcome: 06:31 ER care complete, transfer ordered by rn 08:36 [place]red by ground EMS [place] [facility] [place]. rs5 08:36 Condition: stable 08:36 Instructed on the need for transfer, Demonstrated understanding of instructions, 08:38 Patient left the ED. rs5 Signatures: Dispatcher [employer] EDMS Shelia Greene Roman, MD MD rn Jeffries, Jennifer [email or web address] Sotelo, Ricky, RN RN rs5 Taylor Sherwood Vivian vk Gallardo, Rommel RN RN rg5
[2024-05-06] MEDS ORDERED: MORPHINE 4 MG/ML SYR ONE (07:12)
[2024-05-06 08:55] VITALS: TEMP 97.8
[2024-05-06 09:08] VITALS: BP 127/84; O2SAT 97
--- OUTSIDE RECORDS SUMMARY | 2024-05-07 13:31 | XMS REPORT | Continuity of Care Document ---
Author Name Unknown Address [address] [facility] [address] [place] [address] [facility] Address [address] [facility] [address] [place] [address] Care Team Providers Care Hospice Director Name Role Phone Fariba Alex Attending Clinician Unavail able NORBERTO DASILVA Attending Clinician Unavail able Norberto Dasilva MD Attending Clinician Alba CALLE Attending Clinician Unavailable NORBERTO DASILVA Admitting Clinician Unavail able Payers Payer Name Policy Type Policy Number Effective Date Expirati on Date Source [facility] [id number] 2024 00:00:00 MEDICARE NOVITAS MB [id number] 2005 00:00:00 [facility] MEDICARE NOVITAS [id number] 2005 00:00:00 [facility] Problems Condition Name Condition Details Condition Category Status Onset Date Resolution Date Last Treatment Date Treating Clinician Comments Source [id number] Primary insomnia Problem [facility] [id number] ROSHAN (generaliz ed anxiety disorder) Problem [facility] [id number] Moderate episode of recurrent major depressive disorder Problem [facility] [id number] Lumbar spondylosi s Problem [facility] [id number] COPD, moderate Problem [facility] [id number] 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 Problem [facility] [id number] CKD (chronic kidney disease), stage II Problem [facility] Tobacco user Nicotine dependence with current use Problem [facility] [id number] Chronic kidney disease, unspecifie d Problem [facility] [id number] Mixed hyperlipid emia Problem [facility] 95591083 Primary hyperparat hyroidism Problem [facility] Sexual dysfunctio n Sexual dysfunctio n Problem Active [facility] Insomnia Insomnia Problem Active Commo n [facility] Constipati on Constipati on, unspecifie d Problem Active [facility] Chronic back pain Chronic back pain Problem Active [facility] Degenerati ve joint disease DJD (degenerat luciana joint disease) Problem Active [facility] Mixed anxiety and depressive disorder Depression with anxiety Problem Active [facility] Seasonal allergic rhinitis Allergic rhinitis, seasonal Problem Active [facility] Hearing loss Unspecifie d hearing loss Problem Active [facility] Hypertensi on Hypertensi on Problem Active [facility] [id number] Chronic tension-ty pe headache, not intractabl e Problem Active [facility] Benign prostatic hypertroph y without outflow obstructio n Benign hypertroph y of prostate Problem Active [facility] 556778487 Renal insufficie ncy Problem Active [facility] 79122924 Vitamin D deficiency Problem Active [facility] Nicotine dependence Nicotine dependence Problem Active [facility] Moderate major depression Moderate major depression Problem Active [facility] Headache syndrome, complicate d Headache syndrome, complicate d Problem Active [facility] Degenerati on of lumbosacra l interverte bral disc Degenerati on of lumbosacra l interverte bral disc Problem Active [facility] Peripheral neuropathy Peripheral neuropathy Problem Active [facility] COPD - Chronic obstructiv e pulmonary disease Chronic obstructiv e pulmonary disease, unspecifie d COPD type Problem Active [facility] Chronic pain Other chronic pain Problem Active [facility] [id number] Hypercalce nirav Problem Active [facility] Allergies, Adverse Reactions, Alerts Allergy Name Allergy Type Status Severity Reaction(s) Onset Date Inactive Date Treating Clinician Comments Source NO KNOWN ALLERGIE S Allergy Active [facility] Social History Social Habit Start Date Stop Date Quantity Comments Source History of Tobacco Use 1994-01-18 00:00:00 Current Smoker [facility] Sexual orientation [facility] Sex Assigned At 1945 00:00:00 1945 00:00:00 [facility] Smoking Status Start Date Stop Date Source Current Smoker 2024-04-06 00:00:00 [facility] Medications Ordered Medication Name Filled Medication Name Start Date Stop Date Current Medication? Ordering Clinician Indication Dosage Frequency Signature (SIG) Comments Components Source Lyrica 75 MG Lyrica 75 MG 04-06 00:00: 00 No 1{capsu le} BID Lyrica 75 MG Fluticasone -Salmeterol 100-50 MCG/ACT Fluticasone -Salmeterol 100-50 MCG/ACT 04-06 00:00: 00 No 1{puff} BID Fluticason e-Salmeter ol 100-50 MCG/ACT Imitrex 50 MG Imitrex 50 MG No 1{table t_as_ne eded} BID Imitrex 50 MG Flonase 50 MCG/ACT Flonase 50 MCG/ACT No 1{spray _in_eac h_nostr il} QD Flonase 50 MCG/ACT carBAMazepi ne 200 MG carBAMazepi ne 200 MG No 1{table t} TID carBAMazep ine 200 MG Remeron 45 MG Remeron 45 MG No 1{table t_at_be dtime} QD Remeron 45 MG tiZANidine HCl 2 MG tiZANidine HCl 2 MG No tiZANidine HCl 2 MG Flomax 0.4 MG Flomax 0.4 MG No 1{capsu le} BID Flomax 0.4 MG Albuterol Sulfate HFA 108 (90 Base) MCG/ACT Albuterol Sulfate HFA 108 (90 Base) MCG/ACT No Albuterol Sulfate HFA 108 (90 Base) MCG/ACT Ventolin HFA 108 (90 Base) MCG/ACT Ventolin HFA 108 (90 Base) MCG/ACT No 2{puffs _as_nee ded} QID Ventolin HFA 108 (90 Base) MCG/ACT Lisinopril 40 MG Lisinopril 40 MG No 1{table t} QD Lisinopril 40 MG Topiramate 25 MG Topiramate 25 MG No Topiramate 25 MG Immunizations Ordered Immunization Name Filled Immunization Name Date Status Comments Source COVID-19 Vaccine (Lai) COVID-19 Vaccine (Negorama) 2020-11-27 16:23:00 Completed [facility] COVID-19 Vaccine (Lai) COVID-19 Vaccine (Lai) 2020-11-27 16:23:00 Completed [facility] COVID-19 Vaccine (Lai) COVID-19 Vaccine (Lai) 2020-11-27 16:23:00 Completed [facility] COVID-19 Vaccine (Lai) COVID-19 Vaccine (Lai) 2020-11-27 16:23:00 Completed [facility] COVID-19 Vaccine (Lai) COVID-19 Vaccine (Lai) 2020-11-27 16:23:00 Completed [facility] COVID-19 Vaccine (Lai) COVID-19 Vaccine (Lai) 2020-11-27 16:23:00 Completed [facility] COVID-19 Vaccine (Lai) COVID-19 Vaccine (Lai) 2020-11-27 16:23:00 Completed [facility] COVID-19 Vaccine (Lai) COVID-19 Vaccine (Lai) 2020-11-27 16:23:00 Completed [facility] FLUZONE HIGH DOSE OVER 65 FLUZONE HIGH DOSE OVER 65 2020-06-15 10:05:00 Completed [facility] FLUZONE HIGH DOSE OVER 65 FLUZONE HIGH DOSE OVER 65 2020-06-15 10:05:00 Completed [facility] FLUZONE HIGH DOSE OVER 65 FLUZONE HIGH DOSE OVER 65 2020-06-15 10:05:00 Completed [facility] FLUZONE HIGH DOSE OVER 65 FLUZONE HIGH DOSE OVER 65 2020-06-15 10:05:00 Completed [facility] FLUZONE HIGH DOSE OVER 65 FLUZONE HIGH DOSE OVER 65 2020-06-15 10:05:00 Completed [facility] FLUZONE HIGH DOSE OVER 65 FLUZONE HIGH DOSE OVER 65 2020-06-15 10:05:00 Completed [facility] FLUZONE HIGH DOSE OVER 65 FLUZONE HIGH DOSE OVER 65 2020-06-15 10:05:00 Completed [facility] FLUZONE HIGH DOSE OVER 65 FLUZONE HIGH DOSE OVER 65 2020-06-15 10:05:00 Completed [facility] FLUZONE HIGH DOSE OVER 65 FLUZONE HIGH DOSE OVER 65 2018-07-03 09:15:00 Completed [facility] FLUZONE HIGH DOSE OVER 65 FLUZONE HIGH DOSE OVER 65 2018-07-03 09:15:00 Completed [facility] FLUZONE HIGH DOSE OVER 65 FLUZONE HIGH DOSE OVER 65 2018-07-03 09:15:00 Completed [facility] FLUZONE HIGH DOSE OVER 65 FLUZONE HIGH DOSE OVER 65 2018-07-03 09:15:00 Completed [facility] FLUZONE HIGH DOSE OVER 65 FLUZONE HIGH DOSE OVER 65 2018-07-03 09:15:00 Completed [facility] FLUZONE HIGH DOSE OVER 65 FLUZONE HIGH DOSE OVER 65 2018-07-03 09:15:00 Completed [facility] FLUZONE HIGH DOSE OVER 65 FLUZONE HIGH DOSE OVER 65 2018-07-03 09:15:00 Completed [facility] FLUZONE HIGH DOSE OVER 65 FLUZONE HIGH DOSE OVER 65 2018-07-03 09:15:00 Completed [facility] Shingrix Shingrix 2018-07-03 09:13:00 Completed [facility] Shingrix Shingrix 2018-07-03 09:13:00 Completed [facility] Shingrix Shingrix 2018-07-03 09:13:00 Completed [facility] Shingrix Shingrix 2018-07-03 09:13:00 Completed [facility] Shingrix Shingrix 2018-07-03 09:13:00 Completed [facility] Shingrix Shingrix 2018-07-03 09:13:00 Completed [facility] Shingrix Shingrix 2018-07-03 09:13:00 Completed [facility] Shingrix Shingrix 2018-07-03 09:13:00 [facility] FLUZONE HIGH DOSE OVER 65 FLUZONE HIGH DOSE OVER 65 2018-07-03 00:00:00 Completed [facility] Shingrix Shingrix 2018-07-03 00:00:00 [facility] COVID-19 Vaccine (Lai) COVID-19 Vaccine (Lai) Unknown Completed [facility] Shingrix Shingrix Unknown Completed [facility] FLUZONE HIGH DOSE OVER 65 FLUZONE HIGH DOSE OVER 65 Unknown Completed [facility] FLUZONE HIGH DOSE OVER 65 FLUZONE HIGH DOSE OVER 65 Unknown Completed [facility] Vital Signs Vital Name Observation Time Observation Value Comments S ource height 2024-04-05 15:00:00 68 [in_i] Commo n [facility] weight 2024-04-05 15:00:00 148 [lb_av] Comm on [facility] temperature 2024-04-05 15:00:00 98.8 [degF] Com mon [facility] bmi 2024-04-05 15:00:00 22.5 kg/m2 Commo n [facility] oximetry 2024-04-05 15:00:00 98 % Commo n [facility] blood pressure systolic 2024-04-05 15:00:00 118 mm[Hg] [facility] blood pressure diastolic 2024-04-05 15:00:00 80 mm[Hg] [facility] height 2024-04-05 15:00:00 69 [in_i] Commo n [facility] weight 2024-04-05 15:00:00 173 [lb_av] Comm on [facility] temperature 2024-04-05 15:00:00 97.7 [degF] Com [facility] bmi 2024-04-05 15:00:00 25.54 kg/m2 Comm on [facility] oximetry 2024-04-05 15:00:00 95 % Commo n [facility] blood pressure systolic 2024-04-05 15:00:00 110 mm[Hg] [facility] blood pressure diastolic 2024-04-05 15:00:00 70 mm[Hg] [facility] height 2022-02-22 15:00:00 70.00 [in_i] Com mon [facility] weight 2022-02-22 15:00:00 153.2 [lb_av] Co mmon [facility] temperature 2022-02-22 15:00:00 97.0 [degF] Com mon [facility] bmi 2022-02-22 15:00:00 21.98 kg/m2 Comm on [facility] oximetry 2022-02-22 15:00:00 97 % Commo n [facility] respiratory rate 2022-02-22 15:00:00 15 /min [facility] blood pressure systolic 2022-02-22 15:00:00 104 mm[Hg] Common [facility] blood pressure diastolic 2022-02-22 15:00:00 59 mm[Hg] [facility] height 2021-11-16 16:00:00 70.00 [in_i] Com [facility] weight 2021-11-16 16:00:00 155.8 [lb_av] Co mmon [facility] temperature 2021-11-16 16:00:00 97.8 [degF] Com [facility] bmi 2021-11-16 16:00:00 22.35 kg/m2 Comm on [facility] oximetry 2021-11-16 16:00:00 97 % Commo n [facility] respiratory rate 2021-11-16 16:00:00 16 /min [facility] blood pressure systolic 2021-11-16 16:00:00 139 mm[Hg] [facility] blood pressure diastolic 2021-11-16 16:00:00 86 mm[Hg] [facility] bmi 2021-06-11 15:00:00 22.96 kg/m2 Comm on [facility] oximetry 2021-06-11 15:00:00 95 % Commo n [facility] respiratory rate 2021-06-11 15:00:00 18 /min [facility] blood pressure systolic 2021-06-11 15:00:00 130 mm[Hg] [facility] blood pressure diastolic 2021-06-11 15:00:00 82 mm[Hg] [facility] height 2021-06-11 15:00:00 70.00 [in_i] Com [facility] weight 2021-06-11 15:00:00 160.0 [lb_av] Co mmon [facility] temperature 2021-06-11 15:00:00 96.5 [degF] Com [facility] height 2021-06-11 15:00:00 70.00 [in_i] Com mon [facility] weight 2021-06-11 15:00:00 160.0 [lb_av] Co mmon [facility] temperature 2021-06-11 15:00:00 96.5 [degF] Com mon [facility] bmi 2021-06-11 15:00:00 22.96 kg/m2 Comm on [facility] oximetry 2021-06-11 15:00:00 95 % Commo n [facility] respiratory rate 2021-06-11 15:00:00 18 /min [facility] blood pressure systolic 2021-06-11 15:00:00 130 mm[Hg] [facility] blood pressure diastolic 2021-06-11 15:00:00 82 mm[Hg] [facility] Encounters Start Date/Time End Date/Time Encounter Type Admission Type Attending [facility] Care Facility Care Department Encounter ID Source 2024-05-06 10:02:00 Outpatient Isai Fariba [facility] [id number] [facility] 2024-05-06 09:46:00 Inpatient ER NORBERTO DASILVA [facility] [id number] [facility] 2024-05-06 09:46:00 Hospital [facility] [id number] [facility] 2024-03-29 11:54:00 Outpatient [facility] [id number] [facility] 2024-03-20 09:22:00 Outpatient [facility] [id number] [facility] 2024-03-14 12:59:00 Outpatient Alba CALLE [facility] [id number] [facility] 2022-08-23 11:01:00 Outpatient Alba Calle [facility] [id number] [facility] 2022-05-19 13:49:01 Outpatient Calle, Na [facility] [id number] [facility] 2021-11-16 16:02:00 Outpatient Calle, Na STLMLC [facility] [id number] [facility] 2021-10-13 14:34:04 Outpatient Calle, Na STLMLC ST[facility] [id number] [facility] 2021-10-13 13:53:23 Outpatient Calle, Na STLMLC [facility] [id number] [facility] 2021-10-13 13:52:12 Outpatient Mahesh Na STLMLC STL[facility]C [id number] [facility] 2021-10-13 13:05:25 Outpatient Mahesh Na STLMLC STL[facility]C [id number] [facility] 2021-10-13 12:39:15 Outpatient Mahesh Na [facility]C [facility] [id number] [facility] 2021-10-13 12:38:32 Outpatient Calle, Na STLMLC STL[facility]C [id number] [facility] 2021-10-13 12:37:50 Outpatient Calle, Na STLMLC STL[facility]C [id number] [facility] 2021-10-13 12:11:23 Outpatient Calle, Na STLMLC STL[facility]C [id number] [facility] 2021-10-13 11:44:16 Outpatient Calle, Na STLMLC STL[facility]C [id number] [facility] 2021-10-13 11:40:44 Outpatient Calle, Na STLMLC STL[facility]C [id number] [facility] 2021-10-13 11:06:39 Outpatient Calle, Na STLMLC STL[facility]C [id number] [facility] 2021-10-13 11:06:13 Outpatient Alba Calle [facility]C STL[facility] [id number] [facility] 2024-04-06 00:00:00 2024-04-06 00:00:00 (TEL) STLMLC STLMLC [id number] [facility] 2024-04-05 00:00:00 2024-04-05 00:00:00 OFFICE VISIT NEW PT LEVEL 4 STLMLC STLMLC [id number] [facility] 2024-04-05 00:00:00 2024-04-05 00:00:00 SUB ANNUAL [facility] WELLNESS VISIT STLMLC STLMLC [id number] [facility] 2024-03-29 00:00:00 2024-03-29 00:00:00 (TEL) STLMLC STLMLC [id number] [facility] 2024-03-26 00:00:00 2024-03-26 00:00:00 (TEL) STLMLC STLMLC [id number] [facility] 2024-03-13 00:00:00 2024-03-13 00:00:00 (TEL) STLMLC STLMLC [id number] [facility] 2022-06-02 00:00:00 2022-06-02 00:00:00 (TEL) STLMLC STLMLC [id number] [facility] 2022-05-26 00:00:00 2022-05-26 00:00:00 (TEL) STLMLC STLMLC [id number] [facility] 2022-03-24 00:00:00 2022-03-24 00:00:00 (TEL) STLMLC STLMLC [id number] [facility] 2022-02-22 00:00:00 2022-02-22 00:00:00 OFFICE VISIT ESTAB PT LEVEL 4 STLMLC STLMLC [id number] [facility] 2021-11-16 00:00:00 2021-11-16 00:00:00 OFFICE VISIT ESTAB PT LEVEL 4 STLMLC STLMLC [id number] [facility] 2021-09-30 00:00:00 2021-09-30 00:00:00 (TEL) STLMLC STLMLC [id number] [facility] 2021-06-11 00:00:00 2021-06-11 00:00:00 OFFICE VISIT ESTAB PT LEVEL 4 STLMLC STLMLC [id number] [facility] 2021-06-11 00:00:00 2021-06-11 00:00:00 SUB ANNUAL M[facility] WELLNESS VISIT STLMLC STLMLC [id number] [facility] 2021-03-25 00:00:00 2021-03-25 00:00:00 Outpatient STLMLC STLMLC [id number] [facility] 2021-03-11 00:00:00 2021-03-11 00:00:00 Outpatient STLMLC STL[facility]C [id number] [facility] 2021-03-09 00:00:00 2021-03-09 00:00:00 Outpatient STLMLC STLMLC [id number] [facility] 2020-11-26 00:00:00 2020-11-26 00:00:00 Outpatient STLMLC STL[facility]C [id number] [facility] 2020-10-30 00:00:00 2020-10-30 00:00:00 Outpatient STLMLC STL[facility]C [id number] [facility] 2020-10-27 00:00:00 2020-10-27 00:00:00 Outpatient STLMLC STLMLC [id number] [facility] 2020-08-27 00:00:00 2020-08-27 00:00:00 Outpatient STLMLC STLMLC [id number] [facility] 2020-07-17 00:00:00 2020-07-17 00:00:00 Outpatient STLMLC STLMLC [id number] [facility] 2020-05-29 15:00:00 2020-05-29 15:00:[address] [facility] [id number] [facility] 2020-05-29 15:00:00 2020-05-29 15:00:[address] [facility] [id number] [facility] 2020-05-11 13:51:00 2020-05-11 13:51:[address] [facility] [id number] [facility] 2020-02-03 13:20:00 2020-02-03 13:20:[address] [facility] [id number] [facility] 2019-10-24 16:00:00 2019-10-24 16:00:[address] [facility] [id number] [facility] 2019-07-23 15:40:00 2019-07-23 15:40:[address] [facility] [id number] [facility] 2019-07-09 15:20:00 2019-07-09 15:20:[address] [facility] [id number] [facility] 2019-04-17 10:20:00 2019-04-17 10:20:[address] [facility] [id number] [facility] 2019-04-10 11:00:00 2019-04-10 11:00:[address] [facility] [id number] [facility] 2019-01-03 16:00:00 2019-01-03 16:00:[address] [facility] [id number] [facility] 2018-11-09 11:47:00 2018-11-09 11:47:[address] [facility] [id number] [facility] 2018-10-03 14:00:00 2018-10-03 14:00:00 [facility] [id number] [facility] 2018-07-03 08:30:00 2018-07-03 08:30:[address] [facility] [id number] [facility] 2018-04-16 15:57:00 2018-04-16 15:57:00 [address] [facility] [id number] [facility] 2018-04-02 09:45:00 2018-04-02 09:45:00 [facility] [id number] [facility] 2018-03-15 10:15:00 2018-03-15 10:15:00 [facility] [id number] [facility] 2018-03-15 09:52:00 2018-03-15 09:52:00 [facility] [id number] [facility] 2018-03-15 09:42:00 2018-03-15 09:42:00 [facility] [id number] [facility] 2017-12-25 15:15:00 2017-12-25 15:15:[address] [facility] [id number] [facility] Results Test Description Test Time Test Comments Results Result Co mments Source LIPID PROFILE WITH CALC NON-HDL [id number] 00:00:00* Test Item Value Reference Range Interpretation Comme nts CALC LDL CHOL (test code = 20467-8) 110 MG/DL See_Comment H [Automated Thrinacia] The system which generated this result transmitted reference range: <100 MG/DL. The reference range was not used to interpret this result as normal/abnormal. CALC NON-HDL CHOL (test code = 49128-3) 130 MG/DL See_Comment H [Automated messa ge] The system which generated this result transmitted reference range: <130 MG/DL. The reference range was not used to interpret this result as normal/abnormal. CHOLESTEROL (test code = 2093-3) 167 MG/DL See_Comment [Automated messa ge] The system which generated this result transmitted reference range: <200 MG/DL. The reference range was not used to interpret this result as normal/abnormal. HDL CHOLESTEROL (test code = 2085-9) 37 MG/DL See_Comment L [Automated messa ge] The system which generated this result transmitted reference range: >39 MG/DL. The reference range was not used to interpret this result as normal/abnormal. RISK RATIO LDL/HDL (test code = 57739-4) 2.97 RATIO See_Comment [Automated message] The system which generated this result transmitted reference range: <3.55 RATIO. The reference range was not used to interpret this result as normal/abnormal. TRIGLYCERIDES (test code = 2571-8) 102 MG/DL See_Comment [Automated messa ge] The system which generated this result transmitted reference range: <150 MG/DL. The reference range was not used to interpret this result as normal/abnormal. HEMOGLOBIN [id number] 00:00:00* Test Item Value Reference Range Interpretation [facility] HEMOGLOBIN A1c (test code = 4548-4) 5.8 % See_Comment H [Automated messa ge] The system which generated this result transmitted reference range: 4.2-5.6 %. The reference range was not used to interpret this result as normal/abnormal. VITAMIN D, 25 [id number] 00:00:00* Test Item Value Reference Range Interpretation [facility] VIT[facility], 25 OH (test code = 1989-3) 24 NG/ML SEE BELOW NG/ML L CBC WITH MANUAL [id number] 00:00:00* Test Item Value Reference Range Interpretation [facility] BASOPHILS (test code = 87545-5) 1.2 % EOSINOPHILS (test code = 27734-6) 3.0 % HEMATOCRIT (test code = 56270-1) 47.1 % See_Comment [Automated messa ge] The system which generated this result transmitted reference range: 40.0-51.0 %. The reference range was not used to interpret this result as normal/abnormal. HEMOGLOBIN (test code = 718-7) 15.5 G/DL See_Comment [Automated messa ge] The system which generated this result transmitted reference range: 13.5-17.0 G/DL. The reference range was not used to interpret this result as normal/abnormal. LYMPHOCYTES (test code = 72135-5) 31.0 % MCH (test code = 53187-1) 30.3 PG See_Comment [Automated messa ge] The system which generated this result transmitted reference range: 25.0-33.0 PG. The reference range was not used to interpret this result as normal/abnormal. MCHC (test code = 19506-4) 32.9 G/DL See_Comment [Automated messa ge] The system which generated this result transmitted reference range: 31.0-36.0 G/DL. The reference range was not used to interpret this result as normal/abnormal. MCV (test code = 96331-6) 92.2 fL See_Comment [Automated messa ge] The system which generated this result transmitted reference range: 80.0-99.0 fL. The reference range was not used to interpret this result as normal/abnormal. MONOCYTES (test code = 90977-6) 6.2 % NEUTROPHILS (test code = 51256-1) 58.3 % NUCLEATED RBCS (test code = 75191-4) 0.0 /100 WBC'S See_Comment [Automated messa ge] The system which generated this result transmitted reference range: 0.0 /100 WBC'S. The reference range was not used to interpret this result as normal/abnormal. PLATELET COUNT (test code = 72365-9) 384 K/UL See_Comment [Automated messa ge] The system which generated this result transmitted reference range: 130-400 K/UL. The reference range was not used to interpret this result as normal/abnormal. RBC (test code = 61195-8) 5.11 M/UL See_Comment [Automated messa ge] The system which generated this result transmitted reference range: 4.50-6.10 M/UL. The reference range was not used to interpret this result as normal/abnormal. RDW (test code = 74326-1) 12.5 % See_Comment [Automated messa ge] The system which generated this result transmitted reference range: 11.5-15.0 %. The reference range was not used to interpret this result as normal/abnormal. WBC (test code = 50029-9) 9.9 K/UL See_Comment [Automated messa ge] The system which generated this result transmitted reference range: 3.5-11.0 K/UL. The reference range was not used to interpret this result as normal/abnormal. TSH REFLEX TO FREE [id number] 00:00:00* Test Item Value Reference Range Interpretation Comme [facility] TSH REFLEX TO FREE T4 (test code = 04092-7) 0.940 UIU/ML See_Comment [Automated messa ge] The system which generated this result transmitted reference range: 0.400-4.100 UIU/ML. The reference range was not used to interpret this result as normal/abnormal. PSA, [id number] 00:00:00* Test Item Value Reference Range Interpretation Comme [facility] PSA, TOTAL (test code = 39674-6) 0.94 NG/ML See_Comment [Automated messa ge] The system which generated this result transmitted reference range: <=4.00 NG/ML. The reference range was not used to interpret this result as normal/abnormal. COMPREHENSIVE METABOLIC [id number] 00:00:00* Test Item Value Reference Range Interpretation Comme [facility] ALBUMIN (test code = 1751-7) 3.8 G/DL See_Comment [Automated [place] [employer] [place] ge] The system which generated this result transmitted reference range: 3.5-5.2 G/DL. The reference range was not used to interpret this result as normal/abnormal. ALKALINE PHOSPHATASE (test code = 6768-6) 64 U/L See_Comment [Automated message] The system which generated this result transmitted reference range: 40-125 U/L. The reference range was not used to interpret this result as normal/abnormal. BILIRUBIN, TOTAL (test code = 1975-2) 0.3 MG/DL See_Comment [Automated message] The system which generated this result transmitted reference range: <=1.2 MG/DL. The reference range was not used to interpret this result as normal/abnormal. BUN (test code = 3094-0) 25 MG/DL See_Comment H [Automated messa ge] The system which generated this result transmitted reference range: 8-23 MG/DL. The reference range was not used to interpret this result as normal/abnormal. CALCIUM (test code = 83898-2) 11.2 MG/DL See_Comment H [Automated messa ge] The system which generated this result transmitted reference range: 8.5-10.5 MG/DL. The reference range was not used to interpret this result as normal/abnormal. CALC A/G RATIO (test code = 1759-0) 1.2 RATIO See_Comment [Automated messa ge] The system which generated this result transmitted reference range: 1.0-2.6 RATIO. The reference range was not used to interpret this result as normal/abnormal. CALC BUN/CREAT (test code = 3097-3) 15 RATIO See_Comment [Automated messa ge] The system which generated this result transmitted reference range: 6-28 RATIO. The reference range was not used to interpret this result as normal/abnormal. CALC GLOBULIN (test code = 19576-9) 3.2 G/DL See_Comment [Automated messa ge] The system which generated this result transmitted reference range: 1.9-3.7 G/DL. The reference range was not used to interpret this result as normal/abnormal. CARBON DIOXIDE (test code = 1963-8) 23 MEQ/L See_Comment [Automated messa ge] The system which generated this result transmitted reference range: 19-31 MEQ/L. The reference range was not used to interpret this result as normal/abnormal. CHLORIDE (test code = 2075-0) 105 MEQ/L See_Comment [Automated messa ge] The system which generated this result transmitted reference range: 95-107 MEQ/L. The reference range was not used to interpret this result as normal/abnormal. CREATININE (test code = 2160-0) 1.66 MG/DL See_Comment H [Automated messa ge] The system which generated this result transmitted reference range: 0.80-1.40 MG/DL. The reference range was not used to interpret this result as normal/abnormal. eGFR (2020 CKD-EPI) (test code = 42989-0) 42 ML/MIN/1.73 See_Comment L [Automated messa ge] The system which generated this result transmitted reference range: >60 ML/MIN/1.73. The reference range was not used to interpret this result as normal/abnormal. GLUCOSE (test code = 1558-6) 93 MG/DL See_Comment [Automated messa ge] The system which generated this result transmitted reference range: 70-99 MG/DL. The reference range was not used to interpret this result as normal/abnormal. POTASSIUM (test code = 2823-3) 4.5 MEQ/L See_Comment [Automated messa ge] The system which generated this result transmitted reference range: 3.5-5.4 MEQ/L. The reference range was not used to interpret this result as normal/abnormal. PROTEIN, TOTAL (test code = 2885-2) 7.0 G/DL See_Comment [Automated messa ge] The system which generated this result transmitted reference range: 6.1-8.3 G/DL. The reference range was not used to interpret this result as normal/abnormal. AST (test code = 1920-8) 20 U/L See_Comment [Automated messa ge] The system which generated this result transmitted reference range: 9-50 U/L. The reference range was not used to interpret this result as normal/abnormal. ALT (test code = 1742-6) 12 U/L See_Comment [Automated messa ge] The system which generated this result transmitted reference range: 5-50 U/L. The reference range was not used to interpret this result as normal/abnormal. SODIUM (test code = 2951-2) 136 MEQ/L See_Comment [Automated messa ge] The system which generated this result transmitted reference range: 133-146 MEQ/L. The reference range was not used to interpret this result as normal/abnormal.
== END 2024-05-06 08:38 | disposition short-term general hospital (02) ==
LOC: ER 04:29
DX: K55.9 Vascular disorder of intestine, unspecified (principal); R51.9 Headache, unspecified; R42 Dizziness and giddiness; R05.9 Cough, unspecified
CPT/HCPCS: 93005; 85025; 36415; 85610; 83605; 85730; 80053; 70450; 74177; Q9967; J2543; J2470 ×2; J2405; J7050

== ENCOUNTER 2024-08-24 22:34 | Emergency (ER) | payer OTHER ==
[2024-08-24 23:56] LABS: Absolute Basophils 0.1 K/uL (0-0.5); Absolute Eosinophils 0.2 K/uL (0-0.5); Absolute Lymphocytes (CBC) 2.1 K/uL (0.7-4.9); Absolute Monocytes 0.7 K/uL (0.1-1.3); Absolute Neutrophil 4.2 K/uL (1.8-8.0); Basophils % 1.5 % (0-1.3); Hematocrit 43.5 % (39.6-49.0); Hemoglobin 14.5 g/dL (13.6-17.9); Lymphocytes % 28.6 % (15.3-44.8); MCH 30.6 pg (27.0-35.0); MCHC 33.4 g/dL (32.0-36.0); MCV 91.5 fL (80-100); Monocytes % 9.2 % (3.3-12.3); Neutrophils % 57.7 % (41.7-73.7); Nucleated Red Blood Cells % 0.2 % (0-0); Platelets 366 thou/uL (152-406); RBC Red Blood Cell Count 4.75 M/uL (4.33-5.43); Red Cell Distribution Width 14.7 % (12.1-15.2)
[2024-08-25 00:09] LABS: Anion Gap 9.3 mEq/L (5.0-15.0); Potassium 4.3 mEq/L (3.5-5.1)
[2024-08-25 00:25] LABS: Sqamous Epithelial None Seen /HPF (None Seen); Urine Bacteria <20 /HPF (<20); Urine Bilirubin NEGATIVE (Negative); Urine Blood 2+ (Negative); Urine Clarity Extremely Turbid (Clear); Urine Color Light-Orange (Yellow); Urine Crystals Unidentified Few /HPF (None Seen); Urine Culture Reflex Order REFLEXED; Urine Glucose NEGATIVE (Negative); Urine Ketones NEGATIVE (Negative); Urine Micro Reflex YN NO BILL MICROSCOPIC; Urine Mucus Slight /HPF (None Seen); Urine Nitrite 1+ (Negative); Urine Protein TRACE (Negative); Urine RBC 21-50 /HPF (None Seen); Urine Urobilinogen Normal (Normal); Urine WBC >50 /HPF (<5); Urine WBC Clump Many /HPF (None Seen)
[2024-08-25] MEDS ORDERED: CEFTRIAXONE 1000 MG/VIAL ONE (00:49)
--- NOTE | 2024-08-25 00:50 | EDPHYS ---
Physician Documentation [facility] Name: Frank Chung Age: 78 yrs Sex: Male : 1945 Arrival Date: 08/24/2024 Time: 22:34 Bed 13 Private MD: ED Physician Tacos Deutsch HPI: 08/24 23:16 This 78 yrs old Male presents to ER via Wheelchair with complaints of Pain ec2 With Urination, pt states he is a little confused, Weakness. 23:16 Patient arrives today for evaluation of dysuria. Patient reports that he has been ec2 experiencing issues with urination. No abdominal pain. Patient reports that he has a history of urinary tract infections recurrently.. Historical: - Allergies: 23:03 NKA; me1 - PMHx: 23:03 Chronic obstructive lung disease; Depression; Hypertension; GI bleed (Hypertension); me1 - PSHx: 23:03 Coronary Angioplasty; me1 - Immunization history:: Adult Immunizations up to date. - Infectious Disease History:: Denies. - Social history:: Smoking status: Patient reports the use of cigarette tobacco products, smokes one-half pack cigarettes per day. ROS: 23:16 Constitutional: as per hpi ec2 Exam: 23:16 Constitutional: GEN: NAD Head: atraumatic Eyes: EOMI Ears: External ears are ec2 normal. CV: regular rate LUNGS: no respiratory distress ABD: non-distended SKIN: no evidence of rashes MSK: no evidence of trauma Vital Signs: 22:45 BP 142 / 93; Pulse 80; Resp 17; Pulse Ox 97% on R/A; Pain 5/10; rg5 23:01 BP 142 / 94; Pulse 83; Resp 18; Temp 98.3; Pulse Ox 97% ; Weight 67.13 kg; Height 5 ft. me1 9 in. ; Pain 6/10; 23:15 BP 113 / 80; Pulse 76; Resp 17; Pulse Ox 98% on R/A; Pain 5/10; rg5 08/25 00:45 BP 134 / 92; Pulse 75; Resp 17; Pulse Ox 97% on R/A; rg5 08/24 23:01 Body Mass Index 21.86 (67.13 kg, 175.26 cm) [facility] [place] 08/24 22:45 Pain Scale: Adult rg5 23:01 Pain Scale: Adult me1 23:15 Pain Scale: Adult rg5 MDM: 08/24 22:59 Medical Screening Exam initiated ec2 23:16 Data reviewed: vital signs, nurses notes. ED course: Patient arrives today with ec2 dysuria. Examination is revealing for well-appearing nontoxic hemodynamically stable individuals otherwise in no acute distress. Will obtain lab work and urine studies. Possible UTI, possible dysuria, doubt pyelonephritis, doubt kidney stone.. 08/25 00:49 ED course: Urine infectious appearing. Will treat for urinary tract infection and have ec2 the patient follow-up PCP. Return precautions given.. 08/24 23:09 Order name: UAM; Complete Time: 00:31 ec2 08/24 23:16 Order name: CBC with Diff; Complete Time: 00:16 ec2 08/24 23:16 Order name: BMP; Complete Time: 00:16 ec2 08/25 00:28 Order name: Urine Culture ED[facility] 08/24 23:16 Order name: Cath; Complete Time: 23:36 ec2 Administered Medications: 00:45 Drug: Rocephin IV 1 grams IV at bolus once; Given slow IV push per pharmacy rg5 instructions Route: IV; Rate: bolus; Site: right antecubital; 00:57 Follow up: Response: No adverse reaction rg5 00:58 Follow up: IV Status: Completed infusion; IV Intake: 50ml rg5 00:55 Not Given (Duplicate Order): rocephin1 grams IV at bolus once; Given slow IV push per rg5 pharmacy instructions Disposition Summary: 08/25/24 00:50 Discharge Ordered Notes: Location: Home ec2 Condition: Stable ec2 Diagnosis - UTI/ Urinary tract infection, site not specified ec2 Followup: ec2 - With: Private Physician - When: - Reason: Re-evaluation by your physician Discharge Instructions: - Discharge Summary Sheet ec2 - Urinary Tract Infection, Adult, [id number] ec2 Forms: - Medication Reconciliation Form ec2 - Antibiotic Education ec2 - Prescription Opioid Use ec2 - Patient Portal Instructions ec2 - Leadership Thank You Letter ec2 Prescriptions: - Cephalexin 500 mg Oral capsule - take 1 capsule ORAL route every 6 hours for 7 days; 28 capsule; Refills: 0, ec2 Product Selection Permitted Signatures: Dispatcher [employer] EDBárbara Julian RN RN me1 Tacos Deutsch MD MD ec2 Pramod Sauceda, KENNETH RN rg5
--- NOTE | 2024-08-25 00:50 | ER ---
Nurse's Notes [facility] Name: Frank Chung Age: 78 yrs Sex: Male : 1945 Arrival Date: 08/24/2024 Time: 22:34 Bed 13 Private MD: Diagnosis: UTI/ Urinary tract infection, site not specified Presentation: 08/24 23:00 Initial Sepsis Screen: Does the patient have a suspected source of infection? No. rg5 Patient's initial sepsis screen is negative. 23:01 Chief complaint: Patient states: burning with urination, urgency x 5 weeks. Is having me1 some difficulty voiding now. Coronavirus screen: Vaccine status: Patient reports receiving the 2nd dose of the covid vaccine. Ebola Screen: No symptoms or risks identified at this time. Initial Sepsis Screen: Does the patient meet any 2 criteria? No. Patient's initial sepsis screen is negative. Risk Assessment: Do you want to hurt yourself or someone else? Patient reports no desire to harm self or others. Onset of symptoms is unknown. 23:01 Method Of Arrival: Wheelchair me1 23:01 Acuity: KEVIN 3 me1 Historical: - Allergies: 23:03 NKA; me1 - PMHx: 23:03 Chronic obstructive lung disease; Depression; Hypertension; GI bleed (Hypertension); me1 - PSHx: 23:03 Coronary Angioplasty; me1 - Immunization history:: Adult Immunizations up to date. - Infectious Disease History:: Denies. - Social history:: Smoking status: Patient reports the use of cigarette tobacco products, smokes one-half pack cigarettes per day. Screenin:00 [facility] ED Fall Risk Assessment (Adult) History of falling in the last 3 months, rg5 including since admission No falls in past 3 months (0 pts) Confusion or Disorientation No (0 pts) Intoxicated or Sedated No (0 pts) Impaired Gait No (0 pts) Mobility Assist Device Used No (0 pt) Altered Elimination No (0 pt) Score/Fall Risk Level 0 - 2 = Low Risk Oriented to surroundings, Maintained a safe environment, Hourly rounding (assess needs \T\ fall precautionary measures) done. Abuse screen: Denies threats or abuse. Nutritional screening: No deficits noted. Tuberculosis screening: No symptoms or risk factors identified. Assessment: 23:00 General: Appears in no apparent distress. comfortable, Behavior is calm, cooperative, rg5 appropriate for age. 23:00 Pain: Complains of pain in suprapubic area Pain currently is 5 out of 10 on a pain rg5 scale. Quality of pain is described as aching. Neuro: Level of Consciousness is awake, alert, obeys commands, Oriented to person, place, time. Cardiovascular: Denies chest pain, Patient's skin is warm and dry. Respiratory: Airway is patent Trachea midline Respiratory effort is even, unlabored. GI: Abdomen is flat, non-distended, Abd is soft and non tender. : Reports burning with urination, inability to void. EENT: No deficits noted. Derm: Skin is intact, Skin is dry, Skin is normal. Musculoskeletal: Circulation, motion, and sensation intact. Range of motion: intact in all extremities. 08/25 00:45 Reassessment: No changes from previously documented assessment. Patient and/or family rg5 updated on plan of care and expected duration. Pain level reassessed. Patient is alert, oriented x 3, equal unlabored respirations, skin warm/dry/pink. Vital Signs: 08/24 22:45 BP 142 / 93; Pulse 80; Resp 17; Pulse Ox 97% on R/A; Pain 5/10; rg5 23:01 BP 142 / 94; Pulse 83; Resp 18; Temp 98.3; Pulse Ox 97% ; Weight 67.13 kg; Height 5 ft. me1 9 in. ; Pain 6/10; 23:15 BP 113 / 80; Pulse 76; Resp 17; Pulse Ox 98% on R/A; Pain 5/10; rg5 08/25 00:45 BP 134 / 92; Pulse 75; Resp 17; Pulse Ox 97% on R/A; rg5 08/24 23:01 Body Mass Index 21.86 (67.13 kg, 175.26 cm) me1 08/24 22:45 Pain Scale: Adult rg5 23:01 Pain Scale: Adult me1 23:15 Pain Scale: Adult rg5 ED Course: 08/24 22:38 Patient arrived in ED. gm2 22:52 Tacos Deutsch MD is Attending Physician. ec2 23:00 Patient has correct armband on for positive identification. Bed in low position. Call rg5 light in reach. Client placed on continuous cardiac and pulse oximetry monitoring. NIBP monitoring applied. telemetry monitor on. Pulse ox on. Door closed. Noise minimized. Warm blanket given. Verbal reassurance given. 23:00 No provider procedures requiring assistance completed. Inserted saline lock: 20 gauge rg5 in right antecubital area, using aseptic technique. Blood collected. Flushed with 10 mL NS. 23:02 Pramod Sauceda, RN is Primary Nurse. rg5 23:03 Triage completed. ma1 23:03 Arm band placed on Patient placed in an exam room. ma1 1208 00:58 Provided Education on: POST ER CARE. rg5 00:58 IV discontinued, bleeding controlled, No redness/swelling at site. Pressure dressing rg5 applied. Administered Medications: 00:45 Drug: Rocephin IV 1 grams IV at bolus once; Given slow IV push per pharmacy rg5 instructions Route: IV; Rate: bolus; Site: right antecubital; 00:57 Follow up: Response: No adverse reaction rg5 00:58 Follow up: IV Status: Completed infusion; IV Intake: 50ml rg5 00:55 Not Given (Duplicate Order): rocephin1 grams IV at bolus once; Given slow IV push per rg5 pharmacy instructions Medication: 12/ 23:00 VIS not applicable for this client. rg5 Intake: 1208 00:58 IV: 50ml; Total: 50ml. rg5 Outcome: 00:50 Discharge ordered by . ec2 01:15 Discharged to home ambulatory, al5 01:15 Condition: good 01:15 Discharge instructions given to patient, Instructed on discharge instructions, follow up and referral plans. medication usage, Demonstrated understanding of instructions, follow-up care, medications, Prescriptions given X 1, 01:15 Patient left the ED. al5 Signatures: Bárbara Kennedy, RN RN me1 Tacos Deutsch MD MD ec2 Allie Back 2 Pramod Sauceda, KENNETH COOPER 5 Cynthia Pace RN RN al5
[2024-08-25 07:12] VITALS: TEMP 98.3
[2024-08-25 07:14] VITALS: BP 134/92; O2SAT 97
== END 2024-08-25 01:15 | disposition home or self-care (01) ==
LOC: ER 22:34
DX: N39.0 Urinary tract infection, site not specified (principal); I10 Essential (primary) hypertension; J44.9 Chronic obstructive pulmonary disease, unspecified; F17.210 Nicotine dependence, cigarettes, uncomplicated
CPT/HCPCS: 87088; 85025; 81001; 87086; 80048; 36415; 87077; 87186; 96374; 99285; J0696

== ENCOUNTER 2024-09-15 02:18 | Emergency (ER) | payer OTHER ==
[2024-09-15 03:06] LABS: Absolute Basophils 0.1 K/uL (0-0.5); Absolute Eosinophils 0.1 K/uL (0-0.5); Absolute Lymphocytes (CBC) 1.6 K/uL (0.7-4.9); Absolute Monocytes 0.7 K/uL (0.1-1.3); Absolute Neutrophil 8.3 K/uL (1.8-8.0); Basophils % 0.6 % (0-1.3); Eosinophils % 1.1 % (0-4.4); Hematocrit 50.2 % (39.6-49.0); Hemoglobin 16.7 g/dL (13.6-17.9); Lymphocytes % 14.7 % (15.3-44.8); MCH 30.2 pg (27.0-35.0); MCHC 33.3 g/dL (32.0-36.0); MCV 90.6 fL (80-100); MPV 7.5 fL (7.6-11.3); Monocytes % 6.2 % (3.3-12.3); Neutrophils % 77.4 % (41.7-73.7); Nucleated Red Blood Cells % 0.1 % (0-0); Platelets 359 thou/uL (152-406); RBC Red Blood Cell Count 5.54 M/uL (4.33-5.43); Red Cell Distribution Width 15.3 % (12.1-15.2)
[2024-09-15 03:08] LABS: PT Prothrombin Time 11.1 SECONDS (9.4-12.5); Protime INR 0.99
[2024-09-15 03:15] LABS: Albumin 3.3 g/dL (3.4-5.0); Albumin/Globulin Ratio 0.7 (1.1-1.8); Anion Gap 9.1 mEq/L (5.0-15.0); Bilirubin Total 0.3 mg/dL (0.2-1.0); Globulin 4.9 g/dL (2.3-3.5); Potassium 4.1 mEq/L (3.5-5.1); Protein, Total 8.2 g/dL (6.4-8.2)
--- NOTE | 2024-09-15 06:52 | RAD REPORT ---
EXAMINATION: CT ABDOMEN AND PELVIS WITH CONTRAST CLINICAL INDICATION: Male, 78 years old.ABD PAIN TECHNIQUE: CT abdomen and pelvis was performed, after the administration of IV contrast, as [facility]. Axial, sagittal and coronal reconstructions were obtained. One or more of the following dose reduction techniques were used: Automated exposure control, adjustment of the mA and/o r kV according to patient size, and/or iterative reconstruction. Unless otherwise specified, incidental findings do not require dedicated imaging follow-up. [id number]. COMPARISON: 05/06/2024 LOWER CHEST: Emphysematous changes.No significant pericardial effusion. Multivessel coronary artery c alcifications.Aortic valve calcifications. UPPER GI: No significant abnormality. LIVER: No significant focal abnormality. GALLBLADDER/BILE DUCTS: No biliary ductal dilatation.? PANCREAS: No mass, ductal dilation, or cristina-pancreatic fluid. SPLEEN: Unremarkable. ADRENALS: No adrenal masses. KIDNEYS AND URETERS: Normal size and contour. No hydronephrosis.Low density and/or too small to chari cterize renal lesions which are statistically benign. ABDOMINAL AORTA AND OTHER VESSELS: Stent noted at the SMA which is new and is grossly patent. Unchang ed 3.3 cm infrarenal abdominal aortic aneurysm. For management of fusiform aneurysmal abdominal aortas: Recommend follow-up every 3 years. Note: For AAA enlargement of > 0.5 cm in 6 months or > 1 cm in 1 year, recommend vascular consultat ion. References: J Am Vijaya Radiol 2013; 10(10):789-794; J Vasc Surg. 2018; 67:2-77 PERITONEUM: No abnormal free fluid. No free air. LYMPH NODES: No pathologic lymphadenopathy. ABDOMINAL WALL: No significant abnormality. SMALL BOWEL/COLON: Long segment of wall thickening with inflammatory changes extending from about the distal transverse colon through the distal sigmoid but primarily involving the descending colon and sigmoid. URINARY BLADDER: Underdistended but grossly unremarkable. REPRODUCTIVE ORGANS: No pathologic process. MUSCULOSKELETAL: Multilevel degenerative changes in the spine. No acute fracture. Fusion hardware in the spine. ADDITIONAL FINDINGS: None. IMPRESSION: Findings remain consistent with a colitis extending from about the splenic flexure through the distal sigmoid. Differential includes infectious, inflammatory, as well as ischemic etiologies. Interval placement of a stent at the SMA which appears grossly patent.
--- NOTE | 2024-09-15 06:57 | EDPHYS ---
Physician Documentation [facility] Name: Frank Chung Age: 78 yrs Sex: Male : 1945 Arrival Date: 09/15/2024 Time: 02:18 Bed 4 Private MD: ED Physician Luis Diaz HPI: 09/15 03:01 This 78 yrs old Male presents to ER via Ambulatory with complaints of Bloody ec2 Stools. 03:01 Patient arrives today for evaluation of bloody stools. Reports that he has a history of ec2 ischemic colitis. He had dark maroon stools today. Patient reports some lower abdominal discomfort as well. Reports no nausea or vomiting. Is on Plavix. Reports no urinary complaints. Historical: - Allergies: 02:38 NKA; vc1 - Home Meds: 02:38 tamsulosin 0.4 mg oral capsule [Active]; mirtazapine 45 mg Oral tablet every day at vc1 bedtime [Active]; pregabalin 75 mg Oral capsule 2 times per day [Active]; lisinopril 20 mg Oral tablet [Active]; buspirone 5 mg Oral tablet 3 times per day [Active]; clopidogrel 75 mg oral tablet daily [Active]; tizanidine 2 mg oral capsule 2 times per day [Active]; carbamazepine 200 mg Oral tablet 3 times per day [Active]; - PMHx: 02:38 Chronic obstructive lung disease; Depression; GI Bleed (Hypertension); Hypertension; vc1 - PSHx: 02:38 Coronary Angioplasty; vc1 - Immunization history:: Client reports receiving the 2nd dose of the Covid vaccine, Flu vaccine is up to date. - Infectious Disease History:: Denies. - Social history:: Smoking status: Patient reports the use of cigarette tobacco products, smokes one-half pack cigarettes per day. ROS: 03:01 Constitutional: as per hpi ec2 Exam: 03:01 Constitutional: GEN: NAD Head: atraumatic Eyes: EOMI Ears: External ears are ec2 normal. CV: regular rate LUNGS: no respiratory distress ABD: non-distended, soft, not guarding, not rigid SKIN: no evidence of rashes MSK: no evidence of trauma Vital Signs: 02:35 BP 140 / 106; Pulse 83; Resp 15; Temp 97.7; Pulse Ox 98% ; Weight 66.22 kg; Height 5 vc1 ft. 8 in. ; Pain 5/10; 05:40 BP 118 / 77; Pulse 70; Resp 18; Temp 97.7; Pulse Ox 98% ; Pain 0/10; bm8 06:30 BP 105 / 74; Pulse 69; Resp 16; Pulse Ox 94% on R/A; dd2 08:30 BP 103 / 74; Pulse 67; Resp 15; Pulse Ox 95% ; bp 10:38 BP 105 / 73; Pulse 69; Resp 16; Pulse Ox 94% ; bp 02:35 Body Mass Index 22.20 (66.22 kg, 172.72 cm) vc1 02:35 Pain Scale: Adult vc1 05:40 Pain Scale: Adult bm8 [place] Coma Score: 02:51 Eye Response: spontaneous(4). Motor Response: obeys commands(6). Verbal Response: bm8 oriented(5). Total: 15. 05:40 Eye Response: spontaneous(4). Motor Response: obeys commands(6). Verbal Response: bm8 oriented(5). Total: 15. MDM: 02:21 Medical Screening Exam initiated ec2 03:01 Data reviewed: vital signs, nurses notes. ED course: Patient arrives today for ec2 evaluation of bloody stools. Examination yields a reassuring abdominal exam. Will obtain lab work, CT imaging.. 03:37 ED course: CBC reassuring. Metabolic profile with renal dysfunction with a creatinine ec2 of 1.64, LFTs are unremarkable. Lipase within normal ranges. Coag profile unremarkable. Pending CT imaging.. 06:55 ED course: CT abdomen pelvis shows colitis, has SMA stent in place. Will transfer for ec2 GI capable facility given concern for ischemic colitis.. 07:11 ED course: Patient is on Plavix.. ec2 07:23 ED course: Patient signed out pending transfer. Patient should be transferred to [address] in the [facility] given recent stent placement, concern for ischemic colitis, GI evaluation as well as possible interventional radiology evaluation.. 08:00 Differential Diagnosis Colitis, ischemic colitis, GI bleed. Counseling: I had a rn detailed discussion with the patient and/or guardian regarding the historical points, exam findings, and any diagnostic results supporting the discharge/admit diagnosis, lab results, radiology results, the need to transfer to another facility. ED course: Accepted for transfer to [facility] for GI evaluation given possible colitis, possible ischemic colitis. 09/15 02:34 Order name: CBC with Diff; Complete Time: 03:37 ec2 09/15 02:34 Order name: CMP; Complete Time: 03:37 ec2 09/15 02:34 Order name: Lipase; Complete Time: 03:37 ec2 09/15 02:34 Order name: Type And Screen; Complete Time: 03:37 ec2 09/15 02:34 Order name: PT-INR; Complete Time: 03:37 ec2 09/15 02:34 Order name: Ptt, Activated; Complete Time: 03:37 ec2 09/15 02:34 Order name: CT Abd/Pelvis - IV Contrast Only; Complete Time: 06:54 ec2 09/15 02:34 Order name: IV Saline Lock; Complete Time: 02:52 ec2 09/15 02:34 Order name: Labs collected and sent; Complete Time: 02:52 ec2 Administered Medications: 07:30 Drug: Piperacillin-Tazobactam IVPB 3.375 grams IVPB once over 60 mins; (mix in NS 100 bp mL) Route: IVPB; Infused Over: 60 mins; Site: right forearm; 11:17 Follow up: IV Status: Completed infusion bp 08:05 Drug: fentaNYL (PF) IVP 25 mcg IVP once Route: IVP; Site: right antecubital; bp 11:17 Follow up: Response: No adverse reaction bp 11:17 Drug: fentaNYL (PF) IVP 25 mcg IVP once Route: IVP; Site: right antecubital; bp 11:17 Follow up: Response: No adverse reaction bp Disposition Summary: 09/15/24 06:56 Transfer Ordered Notes: Transfer Location: Other Acute Care Facility ec2 Reason: Higher level of care ec2 Condition: Stable ec2 Problem: an ongoing problem ec2 Symptoms: are unchanged ec2 Accepting Physician: transferring doc(09/15/24 12:41) bp Diagnosis - Lower GI Bleed and concern for ischemic colitis ec2 Forms: - Medication Reconciliation Form ec2 - SBAR form ec2 Signatures: Dispatcher [employer] EDMS Luis Diaz MD MD rn Peltier, Brian, RN RN bp Tahira Lima RN RN vc1 Tacos Deutsch MD MD ec2 Corrections: (The following items were deleted from the chart) 10: 07:19 LACTATE+C.LAB.NORA ordered. EDNM EDMS 12:41 06:56 transferring doc ec2 bp
--- NOTE | 2024-09-15 06:57 | ER ---
Nurse's Notes [facility] Name: Frank Chung Age: 78 yrs Sex: Male : 1945 Arrival Date: 09/15/2024 Time: 02:18 Bed 4 Private MD: Diagnosis: Lower GI Bleed and concern for ischemic colitis Presentation: 09/15 02:35 Chief complaint: Patient states: bleeding from rectum. Coronavirus screen: Client vc1 denies travel out of the [place] in the last 14 days. At this time, the client does not indicate any symptoms associated with coronavirus-19. Ebola Screen: Patient negative for fever greater than or equal to 101.5 degrees Fahrenheit, and additional compatible Ebola Virus Disease symptoms Patient denies exposure to infectious person. Patient denies travel to an Ebola-affected area in the 21 days before illness onset. No symptoms or risks identified at this time. Initial Sepsis Screen: Does the patient meet any 2 criteria? No. Patient's initial sepsis screen is negative. Does the patient have a suspected source of infection? No. Patient's initial sepsis screen is negative. Risk Assessment: Do you want to hurt yourself or someone else? Patient reports no desire to harm self or others. Onset of symptoms was September 15, 2024. Care prior to arrival: None. Activity prior to arrival: None. Mechanism of Injury: No Mechanism of Injury. Transition of care: patient was not received from another setting of care. 02:35 Method Of Arrival: Ambulatory vc1 02:35 Acuity: KEVIN 3 vc1 Triage Assessment: 02:44 General: Appears in no apparent distress. uncomfortable, slender, Behavior is vc1 cooperative, flat. Pain: Complains of pain in right lower quadrant and left lower quadrant Pain does not radiate. Pain currently is 5 out of 10 on a pain scale. Quality of pain is described as crampy, Also complains of rectal bleeding. EENT: No deficits noted. No signs and/or symptoms were reported regarding the EENT system. Neuro: Level of Consciousness is awake, alert, obeys commands, Oriented to person, place, time, situation, Appropriate for age. Cardiovascular: Capillary refill < 3 seconds Patient's skin is warm and dry. Respiratory: Airway is patent Respiratory effort is even, unlabored, Respiratory pattern is regular, symmetrical. GI: Abdomen is flat, non-distended, Reports lower abdominal pain, rectal bleeding, Pain is 5 out of 10 on a pain scale. : No deficits noted. No signs and/or symptoms were reported regarding the genitourinary system. Derm: Skin is intact, is healthy with good turgor, Skin is dry, Skin is normal, Skin temperature is warm. Musculoskeletal: Circulation, motion, and sensation intact. Range of motion: intact in all extremities. Historical: - Allergies: 02:38 NKA; vc1 - Home Meds: 02:38 tamsulosin 0.4 mg oral capsule [Active]; mirtazapine 45 mg Oral tablet every day at vc1 bedtime [Active]; pregabalin 75 mg Oral capsule 2 times per day [Active]; lisinopril 20 mg Oral tablet [Active]; buspirone 5 mg Oral tablet 3 times per day [Active]; clopidogrel 75 mg oral tablet daily [Active]; tizanidine 2 mg oral capsule 2 times per day [Active]; carbamazepine 200 mg Oral tablet 3 times per day [Active]; - PMHx: 02:38 Chronic obstructive lung disease; Depression; GI Bleed (Hypertension); Hypertension; vc1 - PSHx: 02:38 Coronary Angioplasty; vc1 - Immunization history:: Client reports receiving the 2nd dose of the Covid vaccine, Flu vaccine is up to date. - Infectious Disease History:: Denies. - Social history:: Smoking status: Patient reports the use of cigarette tobacco products, smokes one-half pack cigarettes per day. Screenin:44 [facility] ED Fall Risk Assessment (Adult) History of falling in the last 3 months, vc1 including since admission No falls in past 3 months (0 pts) Confusion or Disorientation No (0 pts) Intoxicated or Sedated No (0 pts) Impaired Gait No (0 pts) Mobility Assist Device Used No (0 pt) Altered Elimination No (0 pt) Score/Fall Risk Level 0 - 2 = Low Risk Oriented to surroundings, Maintained a safe environment, Educated pt \T\ family on fall prevention, incl call for assistance when getting out of bed. Abuse screen: Denies threats or abuse. Nutritional screening: No deficits noted. Tuberculosis screening: No symptoms or risk factors identified. Assessment: 05:40 Reassessment: Patient appears in no apparent distress at this time. Patient and/or bm8 family updated on plan of care and expected duration. Pain level reassessed. Patient is alert, oriented x 3, equal unlabored respirations, skin warm/dry/pink. General: Appears in no apparent distress. comfortable, Behavior is calm, cooperative, appropriate for age, PT REPORTS PAIN ONLY WHEN HE COUGHS. THIS NURSE HAS NOT HEARD PT COUGH SINCE ARRIVAL. PT APPEARS TO BE RESTING IN BED IN nad. 11:06 Reassessment: REPORT TO LUCIA COOPER FOR [facility] 629. bp Vital Signs: 02:35 BP 140 / 106; Pulse 83; Resp 15; Temp 97.7; Pulse Ox 98% ; Weight 66.22 kg; Height 5 vc1 ft. 8 in. ; Pain 5/10; 05:40 BP 118 / 77; Pulse 70; Resp 18; Temp 97.7; Pulse Ox 98% ; Pain 0/10; bm8 06:30 BP 105 / 74; Pulse 69; Resp 16; Pulse Ox 94% on R/A; dd2 08:30 BP 103 / 74; Pulse 67; Resp 15; Pulse Ox 95% ; bp 10:38 BP 105 / 73; Pulse 69; Resp 16; Pulse Ox 94% ; bp 02:35 Body Mass Index 22.20 (66.22 kg, 172.72 cm) vc1 02:35 Pain Scale: Adult vc1 05:40 Pain Scale: Adult bm8 [place] Coma Score: 02:51 Eye Response: spontaneous(4). Motor Response: obeys commands(6). Verbal Response: bm8 oriented(5). Total: 15. 05:40 Eye Response: spontaneous(4). Motor Response: obeys commands(6). Verbal Response: bm8 oriented(5). Total: 15. ED Course: 02:20 Patient arrived in ED. [id number] 02:20 Tacos Deutsch MD is Attending Physician. ec2 02:38 Triage completed. vc1 02:43 Arm band placed on left wrist. vc1 02:44 Patient has correct armband on for positive identification. Bed in low position. Call vc1 light in reach. Pulse ox on. NIBP on. 02:51 Cameron Erazo RN is Primary Nurse. bm8 02:51 Door closed. Noise minimized. Warm blanket given. Pillow given. Verbal reassurance bm8 given. Head of bed elevated. 02:51 No provider procedures requiring assistance completed. Initial lab(s) drawn, by me, bm8 sent to lab. T\T\S collected, blood band applied to patient. Inserted saline lock: 18 gauge in right antecubital area, using aseptic technique. Blood collected. Flushed with 10 mL NS. Patient maintains SpO2 saturation greater than 95% on room air. 03:43 CT Abd/Pelvis - IV Contrast Only In Process Unspecified. EDMS 06:58 Report given to Urvashi, RN's. bm8 07:01 initiated a transfer with Wanda from the [facility]. eb 07:23 Attending Physician role handed off by Tacos Deutsch MD ec2 07:23 Luis Diaz MD is Attending Physician. ec2 07:[address] Morrison the hospitalist production supervisor off shift for [facility] with Dr. Diaz for patient transfer consultation. 10:12 administrative approval given by Wanda Mott Rn/ patient has been accepted to [facility] [address] bed 629/ Dr. Genesis Morrison has accepted the patient in transfer/ report to be called to [phone]. Administered Medications: 07:30 Drug: Piperacillin-Tazobactam IVPB 3.375 grams IVPB once over 60 mins; (mix in NS 100 bp mL) Route: IVPB; Infused Over: 60 mins; Site: right forearm; 11:17 Follow up: IV Status: Completed infusion bp 08:05 Drug: fentaNYL (PF) IVP 25 mcg IVP once Route: IVP; Site: right antecubital; bp 11:17 Follow up: Response: No adverse reaction bp 11:17 Drug: fentaNYL (PF) IVP 25 mcg IVP once Route: IVP; Site: right antecubital; bp 11:17 Follow up: Response: No adverse reaction bp Medication: 02:44 VIS not applicable for this client. vc1 Outcome: 06:56 ER care complete, transfer ordered by . ec2 12:41 Patient left the ED. bp Signatures: Dispatcher [employer] EDMS Mj Carr, KENNETH RN Stephy Segura Jennifer jj6 Tahira Lima RN RN vc1 Tacos Deutsch MD MD ec2 Cameron Erazo, RN RN bm8 REGINA HALL, RN RN dd2
[2024-09-15] MEDS ORDERED: PIPERACIL/TAZO 3.375 GM VIAL IV ONE (07:35)
[2024-09-15] MEDS ORDERED: NA CHLORIDE 0.9% 100 ML ONE (07:35)
[2024-09-15] MEDS ORDERED: FENTANYL CITR 100 MCG/2 ML ONE ×2 (08:01→11:12)
[2024-09-15 13:16] VITALS: TEMP 97.7
[2024-09-15 13:23] VITALS: BP 105/73; O2SAT 94
== END 2024-09-15 12:41 ==
LOC: ER 02:18
DX: K92.1 Melena (principal); I10 Essential (primary) hypertension; J44.9 Chronic obstructive pulmonary disease, unspecified; Z79.01 Long term (current) use of anticoagulants
CPT/HCPCS: 96365; 85025; 36415; 86900; 86850; 85610; 86901; 85730; 83690; 80053; 74177; 96375; 99284; 96366; Q9967; J2543; J3010 ×2

== ENCOUNTER 2025-01-01 06:04 | Emergency (ER) | payer OTHER ==
[2025-01-01] MEDS ORDERED: CIPROFLOXACIN 400mg IV 400 MG/200 ML BAG IV ONE (06:53)
[2025-01-01] MEDS ORDERED: NA CHLORIDE 0.9% 1,000 ML ONE ×2 (06:54→10:29)
[2025-01-01] MEDS ORDERED: METRONIDAZOLE 500mg IVPB 500 MG/100 ML BAG IV ONE (06:54)
[2025-01-01 06:59] LABS: Absolute Basophils 0.1 K/uL (0-0.5); Absolute Eosinophils 0.1 K/uL (0-0.5); Absolute Lymphocytes (CBC) 1.6 K/uL (0.7-4.9); Absolute Monocytes 0.6 K/uL (0.1-1.3); Absolute Neutrophil 5.3 K/uL (1.8-8.0); Basophils % 1.5 % (0-1.3); Eosinophils % 1.8 % (0-4.4); Hematocrit 44.6 % (39.6-49.0); Hemoglobin 15.1 g/dL (13.6-17.9); Lymphocytes % 20.3 % (15.3-44.8); MCH 31.1 pg (27.0-35.0); MCHC 33.8 g/dL (32.0-36.0); MPV 7.2 fL (7.6-11.3); Neutrophils % 68.4 % (41.7-73.7); Nucleated Red Blood Cells % 0.1 % (0-0); Platelets 369 thou/uL (152-406); RBC Red Blood Cell Count 4.85 M/uL (4.33-5.43); Red Cell Distribution Width 14.3 % (12.1-15.2)
--- NOTE | 2025-01-01 06:59 | ER ---
Nurse's Notes [facility] Name: Frank Chung Age: 79 yrs Sex: Male : 1945 Arrival Date: 01/01/2025 Time: 06:04 Bed 6 Private MD: Diagnosis: Abdominal tenderness;Diarrhea, unspecified;GI Bleed/ Gastrointestinal hemorrhage, unspecified;Tobacco abuse counseling;Tobacco use Presentation: 01/01 06:34 Chief complaint: Patient states: c/o diarrhea starting yesterday. took imodium late al5 last night started to experience RLQ abd pain and bloody stools. Coronavirus screen: At this time, the client does not indicate any symptoms associated with coronavirus-19. Ebola Screen: No symptoms or risks identified at this time. Initial Sepsis Screen: Does the patient meet any 2 criteria? No. Patient's initial sepsis screen is negative. Does the patient have a suspected source of infection? No. Patient's initial sepsis screen is negative. Risk Assessment: Do you want to hurt yourself or someone else? Patient reports no desire to harm self or others. Onset of symptoms was January 01, 2025. 06:34 Method Of Arrival: Wheelchair al5 06:34 Acuity: KEVIN 3 al5 Triage Assessment: 06:45 General: Appears in no apparent distress. comfortable, Behavior is calm, cooperative. al5 Pain: Complains of pain in right lower quadrant Quality of pain is described as aching. EENT: No signs and/or symptoms were reported regarding the EENT system. Neuro: Level of Consciousness is awake, alert, obeys commands, Oriented to person, place, time, situation. Cardiovascular: Capillary refill < 3 seconds Patient's skin is warm and dry. Respiratory: Airway is patent Respiratory effort is even, unlabored, Respiratory pattern is regular, symmetrical. GI: Abdomen is flat, non-distended, Reports lower abdominal pain, diarrhea, bloody stool. : No signs and/or symptoms were reported regarding the genitourinary system. Derm: Skin is intact, is healthy with good turgor, Skin is pink, warm \T\ dry. normal. Musculoskeletal: No signs and/or symptoms reported regarding the musculoskeletal system. Historical: - Allergies: 06:38 NKA; al5 - Home Meds: 06:38 buspirone 5 mg Oral tablet 3 times per day [Active]; carbamazepine 200 mg Oral tablet 3 al5 times per day [Active]; clopidogrel 75 mg Oral tablet daily [Active]; lisinopril 20 mg Oral tablet [Active]; mirtazapine 45 mg Oral tablet every day at bedtime [Active]; pregabalin 75 mg Oral capsule 2 times per day [Active]; tamsulosin 0.4 mg Oral capsule [Active]; tizanidine 2 mg Oral capsule 2 times per day [Active]; - PMHx: 06:38 Chronic obstructive lung disease; Depression; GI Bleed (Hypertension); Hypertension; al5 - PSHx: 06:38 Coronary Angioplasty; al5 - Immunization history:: Adult Immunizations up to date. - Infectious Disease History:: Denies. - Social history:: Smoking status: unknown. - Family history:: not pertinent. Screenin:47 [facility] ED Fall Risk Assessment (Adult) History of falling in the last 3 months, al5 including since admission No falls in past 3 months (0 pts) Confusion or Disorientation No (0 pts) Intoxicated or Sedated No (0 pts) Impaired Gait No (0 pts) Mobility Assist Device Used No (0 pt) Altered Elimination No (0 pt) Score/Fall Risk Level 0 - 2 = Low Risk Oriented to surroundings, Maintained a safe environment, Hourly rounding (assess needs \T\ fall precautionary measures) done. Abuse screen: Denies threats or abuse. Denies injuries from another. Nutritional screening: No deficits noted. Tuberculosis screening: No symptoms or risk factors identified. Assessment: 06:46 Reassessment: see triage assessment. al5 10:50 Reassessment: TRANSFER PENDING CT RESULTS. bp 11:52 Reassessment: REPORT TO GRACIE COOPER AT [facility]. bp Vital Signs: 06:34 BP 96 / 67; Pulse 81; Resp 16; Temp 97.6; Pulse Ox 98% on R/A; Weight 63.5 kg; Height 5 al5 ft. 8 in. ; 10:50 BP 108 / 77; Pulse 65; Resp 19; Pulse Ox 100% ; bp 11:52 BP 119 / 67; Pulse 63; Resp 18; Pulse Ox 100% ; bp 06:34 Body Mass Index 21.29 (63.50 kg, 172.72 cm) al5 ED Course: 06:10 Patient arrived in ED. gm2 06:11 Jaylen Smith MD is Attending Physician. luis alberto 06:33 Cynthia Pace, KENNETH is Primary Nurse. al5 06:38 Triage completed. al5 06:44 XRAY Chest (1 view) In Process Unspecified. EDMS 06:46 Arm band placed on right wrist. Patient placed in the treatment room, in view of staff al5 members, on cardiac rehab nurse, on pulse oximetry. 06:47 Patient has correct armband on for positive identification. Placed in gown. Bed in low al5 position. Call light in reach. Side rails up X 1. Provided Education on: plan of care. 06:48 No provider procedures requiring assistance completed. Inserted saline lock: 20 gauge al5 in right antecubital area, using aseptic technique. Blood collected. Flushed with 10 mL NS. 07:03 Attending Physician role handed off by Jaylen Smith MD rt 07:03 Justin Cruz MD is Attending Physician. rt 07:56 CT Abd/Pelvis - IV Contrast Only In Process Unspecified. EDMS 09:04 initiated transfer to [facility]. bd 09:53 CT Abdomen - Angio In Process Unspecified. EDMS 09:53 Pelvis Angio In Process Unspecified. EDMS 10:35 pt accepted in transfer to [facility] rm B [address] Schultz admin approval given bd by Amos Joshi. 11:53 Patient transferred, IV remains in place. bp Administered Medications: 07:03 Drug: NS 0.9% IV 1000 ml IV at 1000 ml once; to be given as a bolus over 60 minutes al5 Route: IV; Rate: 1000 ml; Site: right antecubital; 10:48 Follow up: IV Status: Completed infusion bp 07:03 Drug: metroNIDAZOLE IVPB 500 mg 100 ml IVPB at 200 ml/hr once over 30 mins Volume: 100 al5 ml; Route: IVPB; Rate: 200 ml/hr; Infused Over: 30 mins; Site: right antecubital; 10:49 Follow up: IV Status: Completed infusion bp 08:34 Drug: Ciprofloxacin IVPB 400 mg 200 ml IVPB once over 60 mins Volume: 200 ml; Route: vc1 IVPB; Infused Over: 60 mins; Site: right antecubital; 10:49 Follow up: IV Status: Completed infusion bp 10:00 Drug: NS 0.9% IV 1000 ml IV at 1000 ml once; to be given as a bolus over 60 minutes bp Route: IV; Rate: 1000 ml; Site: right antecubital; Medication: 06:47 VIS not applicable for this client. al5 Outcome: 06:59 ER care complete, transfer ordered by MD. sahu 12:10 Patient left the ED. iw Signatures: Dispatcher [employer] EDMS Shelia Greene Corey, MD MD cha Williams, Irene, RN RN iw Peltier, Brian, RN RN bp Tahira Lima RN RN vc1 Justin Cruz MD MD rt Allie Back 2 Cynthia Pace RN RN al5 Corrections: (The following items were deleted from the chart) 10:53 10:50 Reassessment: ADMIT IN PROCESS bp bp 10:53 10:50 BP 163 / 91; Pulse 82bpm; Resp 18bpm; Pulse Ox 98%; bp bp
--- NOTE | 2025-01-01 06:59 | EDPHYS ---
Physician Documentation [facility] Name: Frank Chung Age: 79 yrs Sex: Male : 1945 Arrival Date: 01/01/2025 Time: 06:04 Bed 6 Private MD: ED Physician Justin Cruz HPI: 01/01 06:47 This 79 yrs old Male presents to ER via Wheelchair with complaints of Bloody luis alberto Stools, Diarrhea, Weakness. 06:47 The patient presents to the emergency department with nausea, diarrhea, abdominal pain, luis alberto of the right lower quadrant and left lower quadrant. Onset: The symptoms/episode began/occurred 2 day(s) ago. Possible causes: unknown, flare up of bowel problem. The symptoms are aggravated by nothing. The symptoms are alleviated by nothing. Associated signs and symptoms: Pertinent positives: abdominal pain, GI bleeding. Severity of symptoms: At their worst the symptoms were moderate in the emergency department the symptoms are unchanged. The patient has experienced similar episodes in the past, a few times. Historical: - Allergies: 06:38 NKA; al5 - Home Meds: 06:38 buspirone 5 mg Oral tablet 3 times per day [Active]; carbamazepine 200 mg Oral tablet 3 al5 times per day [Active]; clopidogrel 75 mg Oral tablet daily [Active]; lisinopril 20 mg Oral tablet [Active]; mirtazapine 45 mg Oral tablet every day at bedtime [Active]; pregabalin 75 mg Oral capsule 2 times per day [Active]; tamsulosin 0.4 mg Oral capsule [Active]; tizanidine 2 mg Oral capsule 2 times per day [Active]; - PMHx: 06:38 Chronic obstructive lung disease; Depression; GI Bleed (Hypertension); Hypertension; al5 - PSHx: 06:38 Coronary Angioplasty; al5 - Immunization history:: Adult Immunizations up to date. - Infectious Disease History:: Denies. - Social history:: Smoking status: unknown. - Family history:: not pertinent. ROS: 06:54 Constitutional: Negative for fever, chills, and weight loss, Eyes: Negative for injury, luis alberto pain, redness, and discharge, ENT: Negative for injury, pain, and discharge, Neck: Negative for injury, pain, and swelling, Cardiovascular: Negative for chest pain, palpitations, and edema, Respiratory: Negative for shortness of breath, cough, wheezing, and pleuritic chest pain, Back: Negative for injury and pain, : Negative for injury, bleeding, discharge, and swelling, MS/Extremity: Negative for injury and deformity, Skin: Negative for injury, rash, and discoloration, Neuro: Negative for headache, weakness, numbness, tingling, and seizure, Psych: Negative for depression, anxiety, suicide ideation, homicidal ideation, and hallucinations, Allergy/Immunology: Negative for hives, rash, and allergies, Endocrine: Negative for neck swelling, polydipsia, polyuria, polyphagia, and marked weight changes, Hematologic/Lymphatic: Negative for swollen nodes, abnormal bleeding, and unusual bruising, 06:54 Abdomen/GI: Positive for abdominal pain, diarrhea, abdominal cramps, of the right upper quadrant, left upper quadrant, right lower quadrant and left lower quadrant, Exam: 06:54 Constitutional: This is a well developed, well nourished patient who is awake, alert, luis alberto and in no acute distress. Head/Face: Normocephalic, atraumatic. Eyes: Pupils equal round and reactive to light, extra-ocular motions intact. Lids and lashes normal. Conjunctiva and sclera are non-icteric and not injected. Cornea within normal limits. Periorbital areas with no swelling, redness, or edema. ENT: Nares patent. No nasal discharge, no septal abnormalities noted. Tympanic membranes are normal and external auditory canals are clear. Oropharynx with no redness, swelling, or masses, exudates, or evidence of obstruction, uvula midline. Mucous membranes moist. Neck: Trachea midline, no thyromegaly or masses palpated, and no cervical lymphadenopathy. Supple, full range of motion without nuchal rigidity, or vertebral point tenderness. No Meningismus. Chest/axilla: Normal chest wall appearance and motion. Nontender with no deformity. No lesions are appreciated. Cardiovascular: Regular rate and rhythm with a normal S1 and S2. No gallops, murmurs, or rubs. Normal PMI, no JVD. No pulse deficits. Respiratory: Lungs have equal breath sounds bilaterally, clear to auscultation and percussion. No rales, rhonchi or wheezes noted. No increased work of breathing, no retractions or nasal flaring. Back: No spinal tenderness. No costovertebral tenderness. Full range of motion. Male : Normal genitalia with no discharge or lesions. Skin: Warm, dry with normal turgor. Normal color with no rashes, no lesions, and no evidence of cellulitis. MS/ Extremity: Pulses equal, no cyanosis. Neurovascular intact. Full, normal range of motion., bilateral aka Neuro: Awake and alert, GCS 15, oriented to person, place, time, and situation. Cranial nerves II-XII grossly intact. Motor strength 5/5 in all extremities. Sensory grossly intact. Cerebellar exam normal. Normal gait. Psych: Awake, alert, with orientation to person, place and time. Behavior, mood, and affect are within normal limits. 06:54 ECG was reviewed by the Attending Physician. 06:54 Abdomen/GI: Inspection: abdomen appears normal, Bowel sounds: hyperactive, in all quadrants, Palpation: mild abdominal tenderness, in the right lower quadrant and left lower quadrant, Liver: no appreciated palpable abnormalities, Hernia: not appreciated, 06:59 ECG was reviewed by the Attending Physician. [facility] Vital Signs: 06:34 BP 96 / 67; Pulse 81; Resp 16; Temp 97.6; Pulse Ox 98% on R/A; Weight 63.5 kg; Height 5 al5 ft. 8 in. ; 10:50 BP 108 / 77; Pulse 65; Resp 19; Pulse Ox 100% ; bp 11:52 BP 119 / 67; Pulse 63; Resp 18; Pulse Ox 100% ; bp 06:34 Body Mass Index 21.29 (63.50 kg, 172.72 cm) al5 MDM: 06:11 Medical Screening Exam initiated [facility] 06:56 Differential diagnosis: Nonspecific abd pain, gastritis, cholecystitis, pancreatitis, luis alberto appendicitis, diverticulitis, viral gastroenteritis, gastroenteritis, gastritis, diverticulitis, hemorrhoids, hemorrhagic shock, varices. Data reviewed: vital signs, nurses notes, lab test result(s), EKG, radiologic studies, CT scan, plain films. Consideration of Admission/Observation Escalation of care including admission/observation considered. I considered the following discharge prescriptions or medication management in the emergency department Medications were administered in the Emergency Department. See MAR. Independent interpretation of the following test(s) in the Emergency Department EKG: See my EKG interpretation above. Test considered but Not performed: Ultrasound no abd usg. Historians other than the Patient: pt well in formed. Care significantly affected by the following chronic conditions: Hypertension, Chronic Obstructive Pulmonary Disease, depression, gi bleed. 10:17 Counseling: I had a detailed discussion with the patient and/or guardian regarding the rt historical points, exam findings, and any diagnostic results supporting the discharge/admit diagnosis, lab results, radiology results, the need to transfer to another facility. Response to treatment: There is no appreciated change of the patient's symptoms at this time. 01/01 06:15 Order name: Basic Metabolic Panel; Complete Time: 07:29 luis alberto 01/01 06:15 Order name: CBC with Diff; Complete Time: 07:03 luis alberto 01/01 06:15 Order name: LFT's; Complete Time: 07:29 luis alberto 01/01 06:15 Order name: Magnesium; Complete Time: 07:29 luis alberto 01/01 06:15 Order name: NT PRO-BNP; Complete Time: 07:29 luis alberto 01/01 06:15 Order name: PT-INR; Complete Time: 07:29 luis alberto 01/01 06:15 Order name: Troponin HS; Complete Time: 07:29 luis alberto 01/01 06:15 Order name: Lipase; Complete Time: 07:29 luis alberto 01/01 06:15 Order name: Type And Screen; Complete Time: 08:51 luis alberto 01/01 06:27 Order name: Lactate w/ 2H reflex if indic.; Complete Time: 11:15 luis alberto 01/01 06:15 Order name: XRAY Chest (1 view); Complete Time: 08:51 luis alberto 01/01 06:15 Order name: CT Abd/Pelvis - IV Contrast Only; Complete Time: 08:51 luis alberto 01/01 09:37 Order name: CT Abdomen - Angio; Complete Time: 11:15 rt 01/01 09:48 Order name: Pelvis Angio; Complete Time: 11:15 EDMS 01/01 06:15 Order name: Cardiac monitoring; Complete Time: 06:48 luis alberto 01/01 06:15 Order name: EKG - Nurse/Tech; Complete Time: 06:48 luis alberto 01/01 06:15 Order name: IV Saline Lock; Complete Time: 06:48 luis alberto 01/01 06:15 Order name: Labs collected and sent; Complete Time: 06:48 luis alberto 01/01 06:15 Order name: O2 Per Protocol; Complete Time: 06:48 luis alberto 01/01 06:15 Order name: O2 Sat Monitoring; Complete Time: 06:48 luis alberto 01/01 06:15 Order name: IV Saline Lock - Large Bore; Complete Time: 06:48 luis alberto 01/01 06:56 Order name: Labs - recollect needed: collect abo/rh no charge; Complete Time: 08:34 bd EC:59 Rate is 69 beats/min. Rhythm is regular. QRS [place] is Normal. [place] interval is normal. QRS luis alberto interval is normal. QT interval is normal. No Q waves. T waves are Normal. No ST changes noted. Clinical impression: NSR w/ Non-specific ST/T Changes and No evidence of ischemia. Interpreted by me. Reviewed by me. Administered Medications: 07:03 Drug: NS 0.9% IV 1000 ml IV at 1000 ml once; to be given as a bolus over 60 minutes al5 Route: IV; Rate: 1000 ml; Site: right antecubital; 10:48 Follow up: IV Status: Completed infusion bp 07:03 Drug: metroNIDAZOLE IVPB 500 mg 100 ml IVPB at 200 ml/hr once over 30 mins Volume: 100 al5 ml; Route: IVPB; Rate: 200 ml/hr; Infused Over: 30 mins; Site: right antecubital; 10:49 Follow up: IV Status: Completed infusion bp 08:34 Drug: Ciprofloxacin IVPB 400 mg 200 ml IVPB once over 60 mins Volume: 200 ml; Route: vc1 IVPB; Infused Over: 60 mins; Site: right antecubital; 10:49 Follow up: IV Status: Completed infusion bp 10:00 Drug: NS 0.9% IV 1000 ml IV at 1000 ml once; to be given as a bolus over 60 minutes bp Route: IV; Rate: 1000 ml; Site: right antecubital; Disposition Summary: 01/01/25 06:59 Transfer Ordered Notes: Transfer Location: [facility] luis alberto Reason: Higher level of care luis alberto Condition: Fair luis alberto Problem: new luis alberto Symptoms: have improved luis alberto Accepting Physician: to [facility](01/01/25 12:10) iw Diagnosis - Abdominal tenderness luis alberto - Diarrhea, unspecified luis alberto - GI Bleed/ Gastrointestinal hemorrhage, unspecified luis alberto - Tobacco abuse counseling luis alberto - Tobacco use luis alberto Forms: - Medication Reconciliation Form luis alberto - SBAR form luis alberto Signatures: Dispatcher [employer] EDMS Shelia Greene Jaylen, MD MD luis alberto Jose Elias, Yasmin, RN RN iw Mj Carr, RN RN bp Tahira Lima, RN RN vc1 Justin Cruz MD MD rt Cynthia Pace, RN RN al5 Corrections: (The following items were deleted from the chart) 06:15 06:15 BASIC METABOLIC PANEL+C.LAB.BRZ ordered. EDMS EDMS 06:15 06:15 CBC+H.LAB.BRZ ordered. EDMS EDMS 06:15 06:15 HEPATIC FUNCTION+C.LAB.BRZ ordered. EDMS EDMS 06:15 06:15 MAGNESIUM+C.LAB.BRZ ordered. EDMS EDMS 06:15 06:15 PROBNP+C.LAB.BRZ ordered. EDMS EDMS 06:15 06:15 PROTIME (+INR)+COAG.LAB.BRZ ordered. EDMS EDMS 06:15 06:15 Troponin High Sensitivity+C.LAB.BRZ ordered. EDMS EDMS 06:15 06:15 LIPASE+C.LAB.BRZ ordered. EDMS EDMS 06:15 06:15 Urinalysis+U.LAB.BRZ ordered. EDMS EDMS 06:15 06:15 Fecal Leukocyte Stain+BA.LAB.BRZ ordered. EDMS EDMS 06:15 06:15 Stool Culture+BA.LAB.BRZ ordered. EDMS EDMS 06:15 06:15 TYPE AND SCREEN+BB.LAB.BRZ ordered. EDMS EDMS 06:15 06:15 Abdomen Pelvis W Con+CT.RAD.BRZ ordered. EDMS EDMS 06:28 06:28 LACTATE+C.LAB.BRZ ordered. EDMS EDMS 07:02 06:59 to [facility] luis alberto luis alberto 12:10 07:02 to [facility] luis alberto iw
[2025-01-01 07:10] LABS: PT Prothrombin Time 11.2 SECONDS (10-13.0); Protime INR 0.98
[2025-01-01 07:23] LABS: ALT/SGPT 18 U/L (16-61); AST/SGOT 21 U/L (15-37); Albumin/Globulin Ratio 0.7 (1.1-1.8); Alkaline Phosphatase 103 U/L (45-117); Anion Gap 7.3 mEq/L (5.0-15.0); BUN Blood Urea Nitrogen 28 mg/dL (7-18); Bicarbonate 24 mEq/L (21-32); Bilirubin Total 0.2 mg/dL (0.2-1.0); Globulin 4.4 g/dL (2.3-3.5); Glomerular Filtration Rate 49 ml/min (=/>90); Glucose Level 100 mg/dL (74-106); Lipase 31 U/L (13-75); NT PRO-BNP 197 pg/mL (<450); Potassium 4.3 mEq/L (3.5-5.1); Protein, Total 7.4 g/dL (6.4-8.2); Sodium Level 135 mEq/L (136-145)
[2025-01-01 07:25] LABS: Bilirubin Direct < 0.2 mg/dL (0-0.2)
--- NOTE | 2025-01-01 08:20 | RAD REPORT ---
EXAMINATION: ONE VIEW CHEST XR CLINICAL INDICATION: Male, 79 years old.,ABDOMINAL DISTENTION TECHNIQUE: Frontal chest projection is submitted. Examination is limited by patient positioning and t echnique. COMPARISON: 02/20/2024 FINDINGS: Mildly suboptimal inspiratory effort. Chronic interstitial opacities and thickening, stable in extent compared to the prior exam. No pneumothorax or sizable effusion. The heart is normal in size. Mediastinal contours are unremarkable. IMPRESSION: Stable interstitial lung disease or fibrotic changes. No new focal airspace opacities.
--- NOTE | 2025-01-01 08:49 | RAD REPORT ---
EXAMINATION: CT Abdomen Pelvis W Contrast CLINICAL INDICATION: Male, 79 years old. ABD PAIN TECHNIQUE: CT abdomen and pelvis was performed, after the administration of IV contrast, [facility]. Axial, sagittal and coronal reconstructions were obtained. One or more of the following dose reduction techniques were used: Automated exposure control, adjustment of the mA and k V according to patient size, and iterative reconstruction. Unless otherwise specified, incidental findings do not require dedicated imaging follow-up. COMPARISON: 09/15/2024 FINDINGS: LOWER CHEST: Chronic interstitial changes with honeycombing at the right base, stable. LIVER: Normal in size and contour. No focal lesion. BILIARY SYSTEM: No suspicious abnormalities. SPLEEN: Normal size. No focal lesion. PANCREAS: No mass, ductal dilation, or cristina-pancreatic fluid. ADRENALS: Normal; no mass. KIDNEYS: Normal size and contour. No hydronephrosis. Stable multiple bilateral cortical cysts, URINARY BLADDER: Unremarkable. GASTROINTESTINAL TRACT: No evidence of free air, significant intra-abdominal free fluid, bowel obstru ction or abscess. APPENDIX: Normal appendix. LYMPH NODES: No lymphadenopathy. MUSCULOSKELETAL: Progressive superior endplate compression deformity at T11 since the prior CT, with sclerotic changes adjacent to the endplates. ADDITIONAL FINDINGS: Fusiform infrarenal abdominal aortic aneurysm measuring 3.4 x 3.2 cm in axial di mensions, stable. Mural thrombus which appears progressive along the caudal aspect of the aneurysm, with narrowest luminal diameter measuring 1.8 x 1.1 cm, previously measured 1.8 x 1.4 cm. IMPRESSION: Progressive although age indeterminate superior endplate compression deformity at T11 since the prior CT. Mildly progressive mural thrombus within stable sized infrarenal aortic aneurysm, with opacified intr aluminal dimensions as stated above. Otherwise stable incidental findings.
--- NOTE | 2025-01-01 11:14 | RAD REPORT ---
EXAMINATION: CT Pelvis Angio HISTORY: [facility] MAIN no bleeding Bed Name: 6 COMPARISON: CT abdomen and pelvis of earlier the same day TECHNIQUE: Multiple contiguous axial images were obtained a CTA of the abdomen and pelvis with contra st per aortic dissection protocol. Sagittal and coronal 3-D MIP reformats were performed. One or more of the following dose reduction techniques were used: Automated exposure control, adjustment of the mA and kV according to patient size, and iterative reconstruction. Unless otherwise specified, incidental findings do not require dedicated imaging follow-up. FINDINGS: LUNGS: Lung bases demonstrate fibrotic changes with honeycombing more so on the right, stable. Elevat ion of the left hemidiaphragm. PLEURAL SPACE: No pleural effusion or pneumothorax. LIVER: Unremarkable. KIDNEYS: Bilateral renal cortical cysts again seen.. SPLEEN: Unremarkable. PANCREAS: Unremarkable. BOWEL: Unremarkable. RETROPERITONEUM: No lymphadenopathy BONES: Degenerative changes in the spine. T11 superior endplate compression deformity again seen. Gra de 1 anterolisthesis of L5 over S1 with sequelae of transpedicular fusion ASCENDING THORACIC AORTA: Normal caliber without evidence of dissection or aneurysmal dilatation. DESCENDING THORACIC AORTA: Normal caliber without evidence of dissection or aneurysmal dilatation. ABDOMINAL AORTA: Fusiform aneurysmal dilation of the infrarenal abdominal aorta, with sac measuring 3 .4 x 3.2 cm in greatest axial dimensions. Mural thrombus predominantly along the left aspect of the sac, with mild surface irregularity. Narrowest luminal diameter measures 1.8 x 1.1 cm. No contrast op acification within the thrombosed portion. CELIAC TRUNK: Variant anatomy with separate origins of the splenic and hepatic arteries from the aort a.. SMA: Patent with proximal stent in place. ISABELLE: Not well-visualized. RENAL ARTERIES: Bilateral single renal arteries without significant atherosclerotic disease IMPRESSION: Fusiform aneurysmal dilation of the infrarenal abdominal aorta, with sac and patent lumen dimensions as above. No evidence of endoleak. Other stable findings as above.
[2025-01-01 12:21] VITALS: TEMP 97.6
[2025-01-01 12:26] VITALS: O2SAT 100
[2025-01-01 12:32] VITALS: BP 119/67
== END 2025-01-01 12:10 | disposition short-term general hospital (02) ==
LOC: ER 06:04
DX: R19.7 Diarrhea, unspecified (principal); K92.2 Gastrointestinal hemorrhage, unspecified; Z72.0 Tobacco use; Z71.6 Tobacco abuse counseling; I10 Essential (primary) hypertension; J44.9 Chronic obstructive pulmonary disease, unspecified; F32.A Depression, unspecified; R53.1 Weakness
CPT/HCPCS: 85025; 80048; 36415; 86900; 83735; 86850; 85610; 86901; 80076; 83605; 84484; 83690; 83880; 72191; 74175; 74177; 71045; Q9967 ×2; J0744; J7030 ×2; 93005